=== PATIENT | male | born 1935 | race Caucasian/White ===

== ENCOUNTER → 2019-09-09 07:53 | Outpatient (CLI) | payer MEDICARE, SELFPAY ==
--- NOTE | ~2019-09-09 | US_ITS ---
EXAMINATION: US aorta DATE: 09/09/2019 08:10 INDICATION: Abdominal aortic aneurysm without rupture TECHNIQUE: Grayscale, color Doppler, and pulsed Doppler images of the aorta and common iliac arteries were obtained. COMPARISON: 09/03/2018 FINDINGS: Maximum vascular dimensions are as follows: Proximal aorta: 2.7 cm Mid aorta: 2.5 cm Distal aorta: 3.4 cm Right common iliac artery: 2.3 cm Left common iliac artery: 1.7 cm There is a 3.7 x 3.4 cm fusiform infrarenal abdominal aortic aneurysm with minimal change since the c omparison examination. IMPRESSION: 1. Fusiform infrarenal abdominal aortic aneurysm measuring up to 3.7 cm with minimal change. Reviewed, dictated and finalized at location A. 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 Fusiform infrarenal abdominal aortic aneurysm measuring up to 3.7 cm with mi nimal change.
== END ==
PROVIDERS: Visit Provider Physician Assistant
DX: I71.4 Abdominal aortic aneurysm, without rupture (principal)
CPT/HCPCS: 76775

== ENCOUNTER 2019-09-25 09:53 | Outpatient (RCR) | payer SELFPAY ==
[2019-05-29 07:58] LABS: Glucose Point of Care 91 (65-105)
== END 2020-04-28 14:26 | disposition home or self-care (01) ==
LOC: ANHCPRIII 09:53
PROVIDERS: PCP Family Medicine; Visit Provider Specialist
DX: I48.91 Unspecified atrial fibrillation (principal); I25.10 Atherosclerotic heart disease of native coronary artery without angina pectoris; Z95.5 Presence of coronary angioplasty implant and graft
CPT/HCPCS: 99199

== ENCOUNTER 2020-01-05 11:46 | Inpatient (IN) | payer MEDICARE, SELFPAY ==
[2020-01-05] VITALS (38 sets, daily range): BP systolic 108–159; BP diastolic 51–99; PULSE 80–105; RESP 11–36; TEMP 35.8–37; O2SAT 99–100; BMI 35.4
--- NOTE | ~2020-01-05 | XR_ITS ---
EXAMINATION: XR small bowel follow through DATE: 01/06/2020 16:46 INDICATION: Anemia, occult blood in the stool TECHNIQUE: Field Administrator radiograph(s) of the abdomen was/were obtained. Oral contrast was administered, and sequential radiographs of the abdomen were obtained until oral contrast was noted to be in the proxi mal colon. Spot fluoroscopic images of the small bowel were obtained. Fluoroscopy exposure time was 1 .0 minutes. The DAP for this procedure was 81.745 Gycm2. COMPARISON: None. FINDINGS: Transit time from the stomach to proximal colon was approximately two hours. There is heavenly l caliber and mucosal fold pattern throughout the small bowel. Terminal ileum is normal. No tethering or abnormal mass effect observed upon the small bowel with real-time fluoroscopy. IMPRESSION: 1. Unremarkable small bowel follow-through. Reviewed, dictated and finalized at location F.
--- NOTE | ~2020-01-05 | XR_ITS ---
EXAMINATION: XR chest 1V portable INDICATION: Shortness of breath TECHNIQUE: Portable AP chest at 1239 hours COMPARISON: 07/29/2018 FINDINGS: There are diffuse bilateral airspace opacities. No pleural effusion or pneumothorax is iden tified. The cardiomediastinal silhouette is within normal limits for technique. IMPRESSION: 1. Diffuse bilateral airspace opacities, consistent with pneumonia, atelectasis, or pulmonary edema. Reviewed, dictated and finalized at location A. IMPRESSION: 1. Diffuse bilateral airspace opacities, consistent with pneumonia, atelectasis , or pulmonary edema.
--- NOTE | 2020-01-05 12:02 | ECG_ITS ---
Measurements Intervals [place] Rate: 97 P: [place]: 0 QRS: 68 QRSD: 177 T: 168 QT: 395 QTc: 503 Interpretive Statements ELECTRONIC VENTRICULAR PACEMAKER VENTRICULAR PREMATURE COMPLEXES AND FUSION COMPLEX BASELINE ARTIFACT- I, II, III, AVR, AVL, AVF, V1-V6 NO FURTHER INTERPRETATION IS POSSIBLE ABNORMAL ECG Electronically Signed On 01-05-2020 12:33:03 CDT by Leroy Lion D.O.
--- NOTE | 2020-01-05 12:04 | ED.RECABL ---
HPI - Recheck/Abnormal Lab/Rx General Chief Complaint: Recheck/Abnormal Lab/Rx Stated Complaint: Abnormal labs Time Seen by Provider: 01/05/20 11:54 Source: patient Mode of arrival: ambulatory Limitations: no limitations History of Present Illness HPI narrative: This patient is an 84 year old male with history of chronic anemia, Chronic kidney disease, afib on xarelto who presents to ER for evaluation of low hemoglobin. Patient is hard of hearing so his if giving history. She states patient has been having fatigue, lightheadedness, worsening edema so he was evaluated by his PCP a few days ago. He had labs drawn and they show a hemoglobin of 4.6 so he was told to come to ER. He is also scheduled to see Dr. Alvarez today for evaluatio of his symptoms. He has increased his oral lasix to twice a day. He has fatigue with walking. He denies chest pain, abdominal pain or back pain. He denies any active bleeding or signs of bleeding other than bruising to his arms. He denies melena, rectal bleeding. MD complaint: abnormal lab (out patient hemoglobin 4) Related Data Home Medications Medication Instructions Recorded Confirmed calcium carbonate 600 mg calcium 600 mg PO BID 07/03/19 01/05/20 (1,500 mg) tablet meloxicam 15 mg tablet 15 mg PO DAILY 07/03/19 01/05/20 multivitamin 1 tablet PO DAILY 07/03/19 01/05/20 rivaroxaban 20 mg tablet 20 mg PO QPM 07/03/19 01/05/20 cholecalciferol (vitamin D3) 25 1,000 unit PO DAILY 08/12/19 01/05/20 mcg (1,000 unit) capsule atorvastatin 20 mg PO HS 01/05/20 01/05/20 olopatadine 1 drp OPHTHALMIC (EYE) QAM 01/05/20 01/05/20 tamsulosin 0.4 mg PO HS 01/05/20 01/05/20 Allergies Allergy/AdvReac Type Severity Reaction Status Date / Time clopidogrel Allergy Unknown Itching Verified 01/01/20 15:25 Review of Systems Review of Systems: All systems reviewed & are unremarkable except as noted in HPI and below Constitutional: Constitutional: Denies chills, Denies fever(s) and Reports weakness Cardiovascular: Cardiovascular: Denies chest pain Respiratory: Respiratory: Reports dyspnea Gastrointestinal: Gastrointestinal: Reports abdominal pain, Denies heartburn, Denies diarrhea, Denies nausea and Denies vomiting Musculoskeletal: Musculoskeletal: Reports back pain Neurologic: Reports dizziness Hematologic/Lymphatic: Hematologic/Lymphatic: Reports easy bruising PMFSH Past Medical History Medical History (Updated 01/05/20 @ 18:54 by Arielle Campbell MD) Abdominal aortic aneurysm Cataract Generalized osteoarthritis of multiple sites Heart failure, unspecified Hemorrhoid History of basal cell cancer History of cardioversion Paroxysmal atrial fibrillation 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 Surgical History Surgical History (Updated 12/04/19 @ 15:37 by Gretchen Patten [facility]) H/O cardiac radiofrequency ablation (~2015) H/O cataract extraction (~2015) H/O hernia repair (~1976) History of cochlear implant (~2017) History of hip replacement (~2005) History of knee replacement (~2006) Hx of cholecystectomy (~2005) Stented coronary artery (~2007) Social History Social History Smoking status: Never smoker Smoking end date: 07/22/02 Alcohol intake: unknown Substance use: never Substance use type: does not use Gender identity (if verbalized by the patient): Male Sexual Orientation (if Verbalized by the Patient): Straight or Heterosexual Spiritual care concerns: No Exam Narrative: Exam Narrative: GENERAL:ill appearing, well-nourished, HEAD: Normocephalic, atraumatic EYES: PERRLA and EOMI, conjunctiva clear without discharge THROAT:Mucous membranes moist, Oropharynx normal without erythema, exudate, peritonsillar swelling or fluctuance NECK: Supple, without lymphadenopathy or mass RESPIRATORY: No respiratory distress, Airway patent,Tachypneic intermittently with movement
[2020-01-05 12:25] LABS: Basophils Percent Auto 0.3 % (0.2-1.2); Eosinophils Absolute Auto 0.2 K/mm3 (0-0.3); Eosinophils Percent Auto 2.2 % (0-4.4); Immature Granulocyte Absolute 0.04 K/mm3 (0.00-0.031); Immature Granulocyte Percent A 0.6 % (0-0.5); Lymphocytes Absolute Auto 0.66 K/mm3 (0.9-3.2); Lymphocytes Percent Auto 9.8 % (18.3-44.2); Mean Corpuscular HGB Conc 28.7 g/dl (32-36); Mean Corpuscular Hemoglobin 26.5 pg (26-34); Mean Corpuscular Volume 92.3 fl (80-100); Mean Platelet Volume 10.2 fl (7.4-10.4); Monocytes Absolute Auto 0.7 K/mm3 (0.1-0.6); Monocytes Percent Auto 10.9 % (2.6-8.5); Neutrophils Absolute Auto 5.1 K/mm3 (1.3-6.7); Neutrophils Percent Auto 76.2 % (45.5-73.1); Nucleated Red Blood Cells Absolute Auto 0.3 K/mm3 (0.0-0.012); Nucleated Red Blood Cells Perc 4.2 % (0.0-0.2); Platelet Count Result 228 k/mm3 (150-375); Red Blood Count 1.81 M/mm3 (4.6-6.20); White Blood Count 6.7 K/mm3 (4.5-10.0)
[2020-01-05 12:36] LABS: INR 3.4; Prothrombin Time 33.6 Seconds (11.1-14.7)
[2020-01-05 12:37] LABS: Alanine Aminotransferase 39 U/L (4-50); Albumin Level 3.5 g/dL (3.5-5.1); Alkaline Phosphatase 88 U/L (38-126); Aspartate Amino Transferase 44 U/L (17-59); Bilirubin,Total 0.8 mg/dL (0.2-1.3); Blood Urea Nitrogen 46 mg/dL (9-20); Calcium 8.3 mg/dL (8.4-10.2); Carbon Dioxide 19 mmol/L (22-30); Chloride 104 mmol/L (98-107); Estimated CRCL calculation 38 ml/min; Estimated Glomerular Filt Rate 39; Glucose 124 mg/dL (75-110); Magnesium 2.1 mg/dL (1.6-2.3); Partial Thromboplastin Time 52.4 SECONDS (22.3-36.8); Potassium 3.5 mmol/L (3.4-5.0); Sodium 136 mmol/L (137-145)
[2020-01-05 12:40] LABS: Hematocrit 16.7 % (42.0-52.0); Hemoglobin 4.8 g/dL (14.0-18.0)
[2020-01-05 12:41] LABS: Anisocytosis 1+ (NORMAL); Hypochromasia 1+ (NORMAL); Platelet Estimate Adequate (Adequate)
[2020-01-05 12:56] LABS: Troponin I 0.067 ng/mL (0.000-0.034)
[2020-01-05 13:33] LABS: Iron 25 ug/dL (49-181)
[2020-01-05 13:40] LABS: NT Pro B Type Natriuretic Pept 2740 PG/ML (5-100)
[2020-01-05 13:41] LABS: Percent Iron Saturation 6 % (20-50)
[2020-01-05] MEDS: FUROSEMIDE INJ 40 MG/4 ML VIAL IV PUSH ×2 (14:21→22:27)
[2020-01-05] MEDS: SODIUM CHLORIDE 0.9% IV 250 ML 30 ML IV CONT (14:21)
[2020-01-05 14:50] LABS: Folic Acid > 20.0 ng/mL (2.76->20)
--- NOTE | 2020-01-05 16:02 | ADMGEN ---
This patient, Rob Britt, was admitted to IMU Room 212-01. Patient/family oriented to hospital policies and general routines including ID bracelet, bed and alarms, visiting hours, pain management, procedures, bathroom and other care routines, personal items, smoking policy, room service/diet, and visiting hours. Valuables list has been completed. Information on how to activate the Rapid Response Team has been discussed. Patient/Family are encouraged to report perceived risks to care and to ask questions if they do not understand what they are told or what they should do.
[2020-01-05] MEDS: PEG (High)/E-LYTE SOLN 4,000 ML BTL 4000 ML PO (17:57)
[2020-01-05] MEDS: SODIUM CHLORIDE 0.9% IV 250 ML 50 ML (17:57)
--- NOTE | 2020-01-05 19:00 | PM.IMHP ---
H&P: HPI History of Present Illness Chief complaint: Low hemoglobin. Narrative: Rob Britt is an 84-year-old male with multiple medical problems to include coronary artery disease with history of stents, atrial fibrillation on long-term anticoagulation, type 2 diabetes mellitus, anemia of chronic disease, chronic kidney disease, and several other comorbidities who presented to the emergency department earlier this morning from home with reports of low hemoglobin on blood drawn yesterday as an outpatient. About a month ago he noticed dark stools, was concerned that perhaps there was blood in them and thus he was evaluated his primary care provider on 12/04/2019. On rectal exam, he reportedly had internal hemorrhoids for which she was given Anusol suppositories and he was told to hold his iron supplements for months to see if the dark stools cleared up. Reportedly, he has not noticed a significant blood in his stool since that time. Over the past 3 weeks he reports increasing dyspnea on lesser and lesser exertion, orthopnea, and worsening of his chronic lower extremity edema. He was seen again by his primary care provider on 01/01/2020 and at that time he was noted to have a new murmur and he was referred for an echocardiogram. Labs were drawn at that time, and I believe they just came back today with a hemoglobin and hematocrit of 4.6 and 15.6 respectively. At the time my evaluation, he has just finished his 2nd unit of blood is feeling somewhat better. He denies chest pain, pleuritic pain, abdominal and epigastric pain, and significant GERD symptoms. No nausea, vomiting, or sweats. He denies cough, sinus congestion, rhinorrhea, otalgia, and odynophagia. Review of Systems Review of Systems: Narrative: All systems were reviewed and are unremarkable except as noted in the HPI. [facility] Past Medical History Medical History (Updated 01/05/20 @ 21:24 by Alona Smith PA-C) Abdominal aortic aneurysm Benign prostatic hyperplasia Chronic anemia Chronic kidney disease, stage 3 Baseline creatinine between 1.4 and 1.70. Coronary artery disease With history of stents in 2007. Negative Lexiscan stress in 06/2016. Essential hypertension Gastroesophageal reflux disease Hearing loss History of basal cell cancer Excised from right ear, chin, and left ear. Hyperlipidemia Osteoarthritis Paroxysmal atrial fibrillation With history of cardioversion and cardiac ablation. On long-term anticoagulation. Seronegative arthropathy of multiple sites Spinal stenosis Subdural hematoma With evacuation after a fall years ago. Type 2 diabetes mellitus Vitamin D deficiency Surgical History Surgical History (Updated 01/05/20 @ 21:10 by Alona Smith PA-C) History of arthroplasty of left knee (~2013) History of arthroplasty of right knee (~2006) History of cardiac radiofrequency ablation (~2015) History of cataract extraction (~2014) History of cholecystectomy (~2005) History of cochlear implant (~2017) History of hemorrhoidectomy (~1981) History of inguinal hernia repair (~1976) History of repair of anterior cruciate ligament of right knee (~1957) History of total left hip arthroplasty (~2005) Status post evacuation of subdural hematoma (~2008) Stented coronary artery (~2007) Family History Family History Father Family history of heart disease in male family member before age 55 Hypertension, Onset Age: 65 Family history of elevated blood lipids Family history of coronary artery disease, Onset Age: 65 Mother Family history of heart disease in male family member before age 55 Hypertension, Onset Age: 97 Family history of coronary artery disease, Onset Age: 97 Sibling Hypertension Patient's brother is in good health Family history of coronary artery disease Social History Social History (Updated 01/05/20 @ 21:11 by Alona Smith PA-C) Socia
[2020-01-05] MEDS: PANTOPRAZOLE SODIUM IV 40 MG VIAL IV PUSH (21:11)
[2020-01-05] MEDS: ramipriL 5 MG CAPSULE 10 MG PO (21:12)
[2020-01-05] MEDS: ATORVASTATIN 20 MG TABLET PO (21:12)
[2020-01-05] MEDS: CALCIUM CARBONATE (OSCAL) 500 MG TABLET 600 MG PO (21:13)
[2020-01-05] MEDS: TAMSULOSIN HCL 0.4 MG CAPSULE PO (21:13)
[2020-01-05 21:29] LABS: Glucose Point of Care 81 (65-105)
[2020-01-05 21:47] LABS: Hemoglobin 6.1 g/dL (14.0-18.0)
[2020-01-05 21:48] LABS: Hematocrit 19.3 % (42.0-52.0)
[2020-01-05] MEDS: TUBING, BLOOD PLUM PUMP TUBING 1 EACH XX (23:18)
[2020-01-05] MEDS: SODIUM CHLORIDE 0.9% IV 250 ML 30 ML (23:18)
--- NOTE | 2020-01-05 23:51 | PCRCNOTE ---
PT was placed on sleep study and taken off due to pt getting blood and colonoscopy preparation.
[2020-01-06] VITALS (23 sets, daily range): BP systolic 117–157; BP diastolic 59–83; PULSE 77–99; RESP 17–23; TEMP 35.7–36.7; O2SAT 96–100
[2020-01-06 03:36] LABS: Basophils Percent Auto 0.3 % (0.2-1.2); Eosinophils Absolute Auto 0.2 K/mm3 (0-0.3); Eosinophils Percent Auto 2.2 % (0-4.4); Hematocrit 22.1 % (42.0-52.0); Hemoglobin 7.1 g/dL (14.0-18.0); Immature Granulocyte Absolute 0.02 K/mm3 (0.00-0.031); Immature Granulocyte Percent A 0.3 % (0-0.5); Lymphocytes Absolute Auto 0.64 K/mm3 (0.9-3.2); Lymphocytes Percent Auto 9.2 % (18.3-44.2); Mean Corpuscular HGB Conc 32.1 g/dl (32-36); Mean Corpuscular Hemoglobin 28.6 pg (26-34); Mean Corpuscular Volume 89.1 fl (80-100); Mean Platelet Volume 9.4 fl (7.4-10.4); Monocytes Absolute Auto 0.7 K/mm3 (0.1-0.6); Monocytes Percent Auto 9.8 % (2.6-8.5); Neutrophils Absolute Auto 5.5 K/mm3 (1.3-6.7); Neutrophils Percent Auto 78.2 % (45.5-73.1); Nucleated Red Blood Cells Absolute Auto 0.2 K/mm3 (0.0-0.012); Nucleated Red Blood Cells Perc 2.2 % (0.0-0.2); Platelet Count Result 162 k/mm3 (150-375); Red Blood Count 2.48 M/mm3 (4.6-6.20); Red Cell Distribution Width 15.4 % (11.5-14.5)
[2020-01-06 03:55] LABS: Alanine Aminotransferase 40 U/L (4-50); Albumin Level 3.3 g/dL (3.5-5.1); Alkaline Phosphatase 94 U/L (38-126); Aspartate Amino Transferase 44 U/L (17-59); Bilirubin,Total 1.2 mg/dL (0.2-1.3); Blood Urea Nitrogen 36 mg/dL (9-20); Carbon Dioxide 27 mmol/L (22-30); Chloride 100 mmol/L (98-107); Estimated CRCL calculation 43 ml/min; Estimated Glomerular Filt Rate 45; Glucose 97 mg/dL (75-110); Potassium 3.2 mmol/L (3.4-5.0); Sodium 132 mmol/L (137-145)
[2020-01-06 05:55] LABS: Glucose Point of Care 86 (65-105)
[2020-01-06 08:14] LABS: Glucose Point of Care 88 (65-105)
[2020-01-06 08:52] LABS: Hematocrit 23.1 % (42.0-52.0); Hemoglobin 7.4 g/dL (14.0-18.0)
--- NOTE | 2020-01-06 09:58 | WPDGICN ---
Assessment and Plan Assessment and plan (1) Stool guaiac positive: Code(s): R19.5 - Other fecal abnormalities Status: Acute Assessment and Plan: Because of occult blood in stool along with profound drop in hemoglobin GI endoscopy will be performed. Patient is on Xarelto anticoagulation which undoubtedly contributes to anemia. Endoscopy is required to determine safety of continued anticoagulation. Plan to transfuse to a stable hemoglobin. Empirically pace patient on Protonix for now. Further and recommendations after endoscopy. (2) Acute on chronic anemia: Code(s): D64.9 - Anemia, unspecified Status: Acute (3) Chronic kidney disease, stage 3: Code(s): N18.3 - Chronic kidney disease, stage 3 (moderate) Status: Acute (4) Paroxysmal atrial fibrillation: Code(s): I48.0 - Paroxysmal atrial fibrillation Status: Acute (5) Pacemaker: Code(s): Z95.0 - Presence of cardiac pacemaker Status: Acute (6) Anticoagulation adequate: Code(s): Z79.01 - group home (current) use of anticoagulants Status: Acute GI Consult Note Consult date/time: 01/06/20 09:58 HPI: Rob Britt is a 84 year old male Seen in evaluation at the request of the emergency room. Patient has a history of progressive weakness. Over the last several months abuse become progressively short of breath. He reports dyspnea on exertion. He presented to primary care office yesterday and blood work was obtained. He was found to have a low hemoglobin in the emergency room hemoglobin noted to be 4.8. Patient does have a prior history of chronic underlying anemia. In the emergency room Hemoccult-positive stools were identified. Patient denies any obvious signs of GI bleeding. He denies any bruises. Denies is nose bleeds or blood in his urine. Past medical history is significant for atrial fibrillation for which he is on Xarelto anticoagulation. He has been treated for diabetes mellitus. He has a distant history of atherosclerotic heart disease and heart stenting. He is somewhat hard of hearing with a cochlear implant. Review of Systems Review of Systems: All systems reviewed & are unremarkable except as noted in HPI and below PMFSH Past Medical History Medical History Abdominal aortic aneurysm Benign prostatic hyperplasia Chronic anemia Chronic kidney disease, stage 3 Baseline creatinine between 1.4 and 1.70. Coronary artery disease With history of stents in 2007. Negative Lexiscan stress in 06/2016. Essential hypertension Gastroesophageal reflux disease Hearing loss History of basal cell cancer Excised from right ear, chin, and left ear. Hyperlipidemia Osteoarthritis Paroxysmal atrial fibrillation With history of cardioversion and cardiac ablation. On long-term anticoagulation. Seronegative arthropathy of multiple sites Spinal stenosis Subdural hematoma With evacuation after a fall years ago. Type 2 diabetes mellitus Vitamin D deficiency Surgical History Surgical History History of arthroplasty of left knee (~2013) History of arthroplasty of right knee (~2006) History of cardiac radiofrequency ablation (~2015) History of cataract extraction (~2014) History of cholecystectomy (~2005) History of cochlear implant (~2017) History of hemorrhoidectomy (~1981) History of inguinal hernia repair (~1976) History of repair of anterior cruciate ligament of right knee (~1957) History of total left hip arthroplasty (~2005) Status post evacuation of subdural hematoma (~2008) Stented coronary artery (~2007) Family History Family History Father Family history of heart disease in male family member before age 55 Hypertension, Onset Age: 65 Family history of elevated blood lipids Family history of coronary olivia
[2020-01-06] MEDS: LACTATED RINGERS 1,000 ML 150 ML IV CONT (10:53)
[2020-01-06 11:05] LABS: Glucose Point of Care 104 (65-105)
--- NOTE | 2020-01-06 11:14 | WPDANESEPPF ---
Anes - Initial Pre Proc Eval Procedure: Operation Date: 01/06/20 10:00 Proposed Procedures p Esophagogastroduodenoscopy & Colonoscopy - Alfonso Jenkins MD Date/Time: 01/06/20 11:14 Surgeon: Rob Rogers MD Pre Op Diagnosis: Low hemoglobin. Patient Data Age: 84 Gender: M Height: 5 ft 10 in Weight: 112 kg Last Vital Signs Temp 36.3 C L 01/06/20 10:58 Pulse 83 01/06/20 10:58 Resp 20 01/06/20 10:58 BP 142/73 H 01/06/20 10:58 Pulse Ox 98 01/06/20 10:58 Allergies Allergy/AdvReac Type Severity Reaction Status Date / Time clopidogrel Allergy Unknown Itching Verified 01/01/20 15:25 Home Medications Medication Instructions Recorded Confirmed Type calcium carbonate 600 mg calcium 600 mg PO BID 07/03/19 01/05/20 History (1,500 mg) tablet meloxicam 15 mg tablet 15 mg PO DAILY 07/03/19 01/05/20 History multivitamin 1 tablet PO DAILY 07/03/19 01/05/20 History rivaroxaban 20 mg tablet 20 mg PO QPM 07/03/19 01/05/20 History cholecalciferol (vitamin D3) 25 1,000 unit PO DAILY 08/12/19 01/05/20 History mcg (1,000 unit) capsule pen needle, diabetic 32 gauge x #100 each 08/18/19 01/05/20 Rx 1/5 esomeprazole magnesium 40 mg 40 mg PO DAILY #90 cap 09/02/19 01/05/20 Rx capsule,delayed release ramipril 10 mg capsule 10 mg PO BID #180 cap 09/30/19 01/05/20 Rx hydroxychloroquine 200 mg tablet 400 mg PO DAILY #180 tablet 10/05/19 01/05/20 Rx liraglutide 0.6 mg/0.1 mL (18 mg/3 1.2 mg SUB-Q DAILY #9 ml 10/16/19 01/05/20 Rx mL) subcutaneous pen injector furosemide 40 mg tablet 40 mg PO BID #180 tablet 11/04/19 01/05/20 Rx finasteride 5 mg tablet 5 mg PO DAILY #90 tablet 12/09/19 01/05/20 Rx albuterol sulfate 90 mcg/actuation See Rx Instructions .ROUTE 12/24/19 01/05/20 Rx aerosol inhaler .COMPLEX PRN #8.5 gm blood sugar diagnostic #100 each 01/04/20 01/05/20 Rx atorvastatin 20 mg PO HS 01/05/20 01/05/20 History olopatadine 1 drp OPHTHALMIC (EYE) QAM 01/05/20 01/05/20 History tamsulosin 0.4 mg PO HS 01/05/20 01/05/20 History Laboratory Tests 01/05/20 01/05/20 01/05/20 12:10 12:10 12:10 WBC 6.7 K/mm3 K/mm3 (4.5-10.0) RBC 1.81 M/mm3 L M/mm3 (4.6-6.20) Hgb 4.8 g/dL L* g/dL (14.0-18.0) Hct 16.7 % L* % (42.0-52.0) MCV 92.3 fl fl (80-100) MCH 26.5 pg pg (26-34) MCHC 28.7 g/dl L g/dl (32-36) RDW 17.0 % H % (11.5-14.5) Plt Count 228 k/mm3 k/mm3 (150-375) MPV 10.2 fl fl (7.4-10.4) Immature Gran % (Auto) 0.6 % H % (0-0.5) Neut % (Auto) 76.2 % H % (45.5-73.1) Lymph % (Auto) 9.8 % L % (18.3-44.2) [place] % (Auto) 10.9 % H % (2.6-8.5) Eos % (Auto) 2.2 % % (0-4.4) Baso % (Auto) 0.3 % % (0.2-1.2) Lymph # (Auto) 0.66 K/mm3 L K/mm3 (0.9-3.2) [place] # (Auto) 0.7 K/mm3 H K/mm3 (0.1-0.6) Eos # (Auto) 0.2 K/mm3 K/mm3 (0-0.3) Baso # (Auto) 0.0 K/mm3 K/mm3 (0.0-0.1) Abs Immat Gran (auto) 0.04 K/mm3 H K/mm3 (0.00-0.031) Absolute Neuts (auto) 5.1 K/mm3 K/mm3 (1.3-6.7) Absolute Nucleated RBC 0.3 K/mm3 H K/mm3 (0.0-0.012) Nucleated RBC % 4.2 % H % (0.0-0.2) Platelet Estimate Adequate (Adequate) Hypochromasia 1+ (NORMAL) Anisocytosis 1+ (NORMAL) PT 33.6 Seconds H Seconds (11.1-14.7) INR 3.4 APTT 52.4 SECONDS H SECONDS (22.3-36.8) Sodium 136 mmol/L L mmol/L (137-145) Potassium 3.5 mmol/L mmol/L (3.4-5.0) Chloride 104 mmol/L mmol/L (98-107) Carbon Dioxide 19 mmol/L L mmol/L (22-30) BUN 46 mg/dL H mg/dL (9-20) Creatinine 1.70 mg/dL H mg/dL (0.7-1.3) Estim Creat Clear Calc 38 ml/min ml/min Estimated GFR 39 L (59 - ) Glucose 124 mg/dL H mg/dL (75-110) POC Capil
[2020-01-06] MEDS: BENZOCAINE (*SP) 60 ML SPRAY CAN (HURRICAINE) 1 SPRAY MUCOUS MEM (11:37)
[2020-01-06 16:55] LABS: Glucose Point of Care 115 (65-105)
[2020-01-06] MEDS: CALCIUM CARBONATE (OSCAL) 500 MG TABLET 600 MG PO ×2 (17:35→18:51)
[2020-01-06] MEDS: ramipriL 5 MG CAPSULE 10 MG PO ×2 (17:36→21:57)
[2020-01-06] MEDS: OLOPATADINE 0.1% OPHTH SOLN 5 ML BTL 1 DROP EACH EYE (17:36)
[2020-01-06] MEDS: FUROSEMIDE 40 MG TABLET PO ×2 (17:37→18:51)
[2020-01-06] MEDS: FINASTERIDE 5 MG TABLET PO (17:38)
[2020-01-06] MEDS: CHOLECALCIFEROL 1,000 UNIT TABLET 1000 UNITS PO (17:38)
--- NOTE | 2020-01-06 18:09 | PM.IMPN ---
Progress Note: A&P Assessment and Plan (1) Acute on chronic anemia: Code(s): D64.9 - Anemia, unspecified Status: Acute Assessment and Plan: Presumably due to GI blood loss with reports of dark stools last month. He will be transfused with close monitoring of his volume status. Upper and lower endoscopy scheduled for tomorrow per Dr. Jenkins. Radha Xarelto and meloxicam. 01/06/20 18:09 Patient 84-year-old male is very hard of hearing and his hearing aid is not working, patient had been having fatigue tired and black stool was seen by his primary care doctor rectal exam showed internal hemorrhoid patient was given Anusol, to further evaluate patient had lab work done however patient's symptoms were progressive getting worse, lab work showed the patient has hemoglobin of 4.6 patient was given 2 units of pack RBC in the ER, patient was seen by GI and had endoscopy did not show significant pathology for GI bleed patient also had colonoscopy there was no significant finding for GI bleed to further evaluate patient is having a small-bowel follow-through and it is pending, currently patient denies any chest pain shortness of breath palpitation fever or chills, his main concern is his hungry at the right now. There was a concerned the patient may have CHF is seen on chest x-ray patient recorded echo was in 2018 daytime patient ejection fraction was 54%, today patient BNP was 2740, patient received 2 does IV furosemide 40 mg and now patient is on furosemide 40 mg b.i.d. is clinically stable to further evaluate will do the cardiac echo and further recommendation to follow. (2) Elevated troponin: Code(s): R79.89 - Other specified abnormal findings of blood chemistry Status: Acute Assessment and Plan: He is having no chest pain whatsoever likely this is due to his profound anemia and high output leading to congestive heart failure. Echocardiogram in a.m. (3) Congestive heart failure: Code(s): I50.9 - Heart failure, unspecified Status: Acute Assessment and Plan: I am unable to find any echocardiogram reports that at this facility, thus will order echo in a.m. I suspect he is in failure due to his profound anemia. He will be diuresed with close monitoring of his volume status. I would like to do an apnea link tonight as well. (4) Gastroesophageal reflux disease: Code(s): K21.9 - Gastro-esophageal reflux disease without esophagitis Status: Acute Assessment and Plan: Will start Protonix IV b.i.d. (5) Essential hypertension: Code(s): I10 - Essential (primary) hypertension Status: Acute Assessment and Plan: Blood pressures were reviewed and they are stable. Continue antihypertensives and monitor daily. (6) Paroxysmal atrial fibrillation: Code(s): I48.0 - Paroxysmal atrial fibrillation Status: Acute Assessment and Plan: Xarelto on hold given profound anemia. (7) Type 2 diabetes mellitus: Code(s): E11.9 - Type 2 diabetes mellitus without complications Status: Acute Assessment and Plan: He is on Victoza, which is non formulary at this facility. Check hemoglobin A1c. Initiate sliding scale insulin, Accu-Cheks, and hypoglycemic protocol. (8) Benign prostatic hyperplasia: Code(s): N40.0 - Benign prostatic hyperplasia without lower urinary tract symptoms Status: Acute Assessment and Plan: Continue finasteride and tamsulosin. (9) Seronegative arthropathy of multiple sites:
[2020-01-06 20:32] LABS: Glucose Point of Care 135 (65-105)
[2020-01-06] MEDS: TAMSULOSIN HCL 0.4 MG CAPSULE PO (21:57)
[2020-01-06] MEDS: ATORVASTATIN 20 MG TABLET PO (22:00)
[2020-01-07] VITALS (9 sets, daily range): BP systolic 127–142; BP diastolic 65–74; PULSE 82–86; RESP 18–22; TEMP 36.1–36.6; O2SAT 96–100
[2020-01-07 06:37] LABS: Blood Urea Nitrogen 30 mg/dL (9-20); Calcium 8.2 mg/dL (8.4-10.2); Carbon Dioxide 30 mmol/L (22-30); Chloride 100 mmol/L (98-107); Estimated CRCL calculation 49 ml/min; Estimated Glomerular Filt Rate 53; Glucose 99 mg/dL (75-110); Potassium 3.3 mmol/L (3.4-5.0); Sodium 134 mmol/L (137-145)
[2020-01-07 06:42] LABS: Mean Corpuscular HGB Conc 31.8 g/dl (32-36); Mean Corpuscular Hemoglobin 28.6 pg (26-34); Mean Corpuscular Volume 89.8 fl (80-100); Mean Platelet Volume 10.2 fl (7.4-10.4); Platelet Count Result 155 k/mm3 (150-375); Red Blood Count 2.45 M/mm3 (4.6-6.20); Red Cell Distribution Width 15.5 % (11.5-14.5); White Blood Count 7.3 K/mm3 (4.5-10.0)
[2020-01-07 07:41] LABS: Glucose Point of Care 91 (65-105)
--- NOTE | 2020-01-07 09:35 | PM.CNCAR ---
Assessment and Plan Assessment and plan (1) Congestive heart failure: Code(s): I50.9 - Heart failure, unspecified Status: Acute Assessment and Plan: Patient clinically fairly well compensated at this time. At presentation, I agree mild pulmonary edema chest x-ray with minimally elevated BNP noted. Continue home oral Lasix 40 mg twice daily. Replete potassium to around 4.0. No doubt, etiology of patient's complaints predominantly related to profound anemia with a hemoglobin of 4.6. Post transfusion patient's symptoms improved greatly. Continue current medical therapy. No need to obtain echocardiogram at this juncture as it is not likely to change our management. Will have patient follow-up with Dr. Alvarez as an outpatient to consider echocardiogram in our office at that time. Furthermore, patient does not wish to obtain echocardiogram at this time in the hospital so this has been canceled. Patient reports his weight has been decreasing up until his admission and his edema is at baseline and chronic. At this time, no further cardiac workup for recommendations. Disposition per hospitalist service and GI recommendations. Will see patient on as needed basis. Please do not hesitate to contact us with any additional questions or concerns. (2) Acute on chronic anemia: Code(s): D64.9 - Anemia, unspecified Status: Acute Assessment and Plan: Secondary to GI blood loss. Avoid NSAID therapy on anticoagulation therapy. Remains significantly anemic with hemoglobin 7.0. Recommend transfusion if drops below 7. Defer further management in this regard to GI and primary service. (3) Paroxysmal atrial fibrillation: Code(s): I48.0 - Paroxysmal atrial fibrillation Status: Acute Assessment and Plan: Patient is pacemaker dependent status post AV dian ablation. He is ventricular paced on telemetry. Resume systemic anticoagulation when okay with GI and primary service. Patient at elevated risk for stroke off anticoagulation given profound anemia, GI bleed this has been held out of necessity. (4) Pacemaker: Code(s): Z95.0 - Presence of cardiac pacemaker Status: Acute Assessment and Plan: As above. No acute issues. (5) Elevated troponin: Code(s): R79.89 - Other specified abnormal findings of blood chemistry Status: Acute Assessment and Plan: Non [place] troponin elevation. Secondary to profound anemia, chronic kidney disease at presentation. Not secondary to acute coronary syndrome although only 1 troponin sampled at presentation. Patient does not endorse ischemic symptoms at this time. Continue aggressive medical management for history of CAD. (6) Essential hypertension: Code(s): I10 - Essential (primary) hypertension Status: Acute Assessment and Plan: But fair control overall. Continue medical therapy. (7) Coronary artery disease: Code(s): I25.10 - Atherosclerotic heart disease of [place] coronary artery without angina pectoris Status: Acute Assessment and Plan: Stable, no acute issues at this time. Continue aggressive medical therapy. Patient had not been on antiplatelet therapy due to systemic anticoagulation. History of Present Illness History of Present Illness Consult date/time: Date of service: 01/07/20 09:35 This is a cardiology consultation at the request of Dr. Denise for our opinion regarding SOB and CHF Requesting physician: Rogelio Denise MD Consult reason: congestive heart failure Reason For Visit: Low hemoglobin. Narrative: Patient is a very pleasant 84-year-old gentleman with a history of coronary artery disease, history of atrial fibrillation and atrial flutter status post ablation x2, status post AV dian ablation and dual-chamber pacemaker, chronic lower extremity edema and heart failure with preserved ejection fraction followed by Dr. Alvarez as an outpatient, diabetes mellitus, c
--- NOTE | 2020-01-07 09:38 | WPDANESPN ---
Anes - Prog Note Post-Op Date/Time: 01/07/20 09:38 Cardiovascular status: normal Respiratory status: normal Airway patency: baseline Mental status: baseline Post-Op hydration status: normal Vital Signs: Last Vital Signs Temp 36.6 C 01/07/20 08:24 Pulse 83 01/07/20 08:24 Resp 18 01/07/20 08:24 BP 142/74 H 01/07/20 08:24 Pulse Ox 97 01/07/20 08:24 I/O: Intake & Output 01/06/20 01/07/20 01/07/20 23:59 07:59 15:59 Intake Total 960 500 Output Total 600 1250 Balance 360 -750 Laboratory Tests 01/07/20 06:21 01/07/20 06:21 01/06/20 01/06/20 01/06/20 11:03 16:50 20:27 WBC RBC Hgb Hct MCV MCH MCHC RDW Plt Count MPV Sodium Potassium Chloride Carbon Dioxide BUN Creatinine Estim Creat Clear Calc Estimated GFR Glucose POC Capillary Glucose 104 115 H 135 H Calcium 01/07/20 01/07/20 01/07/20 06:21 06:21 07:35 WBC 7.3 RBC 2.45 L Hgb 7.0 L Hct 22.0 L MCV 89.8 MCH 28.6 MCHC 31.8 L RDW 15.5 H Plt Count 155 MPV 10.2 Sodium 134 L Potassium 3.3 L Chloride 100 Carbon Dioxide 30 BUN 30 H Creatinine 1.30 Estim Creat Clear Calc 49 Estimated GFR 53 L Glucose 99 POC Capillary Glucose 91 Calcium 8.2 L Post-procedural complaints: none Patient Feedback: Patient satisfied with anesthetic care.
[2020-01-07] MEDS: CHOLECALCIFEROL 1,000 UNIT TABLET 1000 UNITS PO (09:44)
[2020-01-07] MEDS: FINASTERIDE 5 MG TABLET PO (09:45)
[2020-01-07] MEDS: CALCIUM CARBONATE (OSCAL) 500 MG TABLET 600 MG PO (09:45)
[2020-01-07] MEDS: ramipriL 5 MG CAPSULE 10 MG PO (09:45)
[2020-01-07] MEDS: FUROSEMIDE 40 MG TABLET PO (09:45)
[2020-01-07] MEDS: OLOPATADINE 0.1% OPHTH SOLN 5 ML BTL 1 DROP EACH EYE (09:46)
--- NOTE | 2020-01-07 11:02 | WPDGIPROGNO ---
Progress Note: A&P Additional Plan Patient alert and comfortable this morning. No additional GI bleeding described. He denies abdominal pain. Stools are normal in color. Physical exam reveals patient to be alert. Comfortable at rest he is anicteric. He remains very hard of hearing. With cochlear implants. Lungs are clear. Heart without murmur. Abdomen bowel sounds are present soft nontender with no organomegaly. Labs reveal hemoglobin 7.0, hematocrit 22, MCV 89. Small-bowel follow-through unremarkable. Impression profound anemia. No significant etiology from GI workup identified. Consider non GI contributing causes. 2. Occult blood in stool. Internal hemorrhoids identified which could account for this. EGD small-bowel follow-through wire unremarkable. Only a few diverticular lesions and hemorrhoids on colonoscopy. 3. Cochlear implant with difficulty hearing. 4. Atrial fibrillation. Patient has been on Xarelto anticoagulation. At the present time see no contraindication. However Xarelto anticoagulation likely contributed to significant blood loss. Would continue monitor hemoglobin closely after restarting. Five. Congestive heart failure. Currently stable clinically. 6. Diabetes. 7. Hypertension. Subjective Date/time seen: 01/07/20 11:02 Objective Data Vital Signs Vital Signs: Vital Signs - 24 hr 01/06/20 12:00 01/06/20 12:01 01/06/20 12:11 Temperature Pulse Rate 81 81 83 Respiratory Rate 21 H 17 Blood Pressure 117/73 129/81 Pulse Oximetry 100 100 01/06/20 12:21 01/06/20 14:00 01/06/20 16:00 Temperature Pulse Rate 78 80 80 Respiratory Rate 23 H Blood Pressure 127/83 Pulse Oximetry 100 01/06/20 16:57 01/06/20 18:00 01/06/20 19:20 Temperature 36.4 C L 36.4 C L Pulse Rate 78 80 81 Respiratory Rate 20 20 Blood Pressure 152/76 H 119/59 L Pulse Oximetry 100 100 01/06/20 20:00 01/06/20 22:00 01/06/20 23:39 Temperature 36.6 C Pulse Rate 78 97 77 Respiratory Rate 20 Blood Pressure 122/77 Pulse Oximetry 98 01/07/20 00:00 01/07/20 02:00 01/07/20 04:00 Temperature 36.1 C L Pulse Rate 83 83 82 Respiratory Rate 22 H Blood Pressure 134/68 Pulse Oximetry 98 96 01/07/20 06:00 01/07/20 08:00 01/07/20 08:24 Temperature 36.6 C Pulse Rate 83 83 83 Respiratory Rate 18 18 Blood Pressure 142/74 H Pulse Oximetry 97 97 Intake/Output Intake/Output: Intake & Output 01/04/20 01/05/20 01/06/20 01/07/20 23:59 23:59 23:59 23:59 Intake Total 992 1360 980 Output Total 1100 3200 1250 Balance -816 -4860 -270 Meds/Results Medications: Active Medications Generic Name Dose Route Start Last Admin Trade Name Freq PRN Reason Stop Dose Admin Albuterol 0 puff 01/05/20 17:43 Proventil Hfa INHALATION Q4-6H PRN shortness of breath or wheezing Atorvastatin Calcium 20 mg 01/05/20 21:00 01/06/20 22:00 Lipitor PO 20 mg HS JAVAN Administration Calcium Carbonate 600 mg 01/05/20 17:00 01/07/20 09:45 Oscal 500 Mg PO 02/05/20 17:01 500 mg BID JAVAN Administration Dextrose 12.5 gm 01/05/20 21:23 Dextrose 50% Syringe IV PUSH PRN PRN Hypoglycemia Protocol Finasteride 5 mg 01/06/20 09:00 01/07/20 09:45 Proscar PO 5 mg DAILY JAVAN Administration Furosemide 40 mg 01/05/20 17:00 01/07/20 09:45 Lasix Tablet PO 40 mg BID JAVAN Administration Glucagon 1 mg 01/05/20 21:23 Glucagon For Inj IM PRN PRN Hypoglycemia Protocol Glucose 15 gm 01/05/20 21:23 Glutose 15 PO PRN PRN Hypoglycemia Protocol Dextrose 1,000 mls @ 100 mls/hr 01/05/20 21:23 Dextrose 5% 1,000 Ml IVPB PRN PRN Hypoglycemia Protocol Insulin Aspart 3 - 6 units 01/06/20 08:00 01/07/20 09:37 Novolog SUB-Q Not Given TIDWM JAVAN Protocol Non-Formulary Medication 1.2 mg 01/05/20 09:00 01/05/20 19:06 Liraglutide [Victoza 3-Yeison] SUB-Q 0
[2020-01-07 13:10] LABS: Glucose Point of Care 112 (65-105)
--- NOTE | 2020-01-07 14:17 | P.DS_ITS ---
DS: Admitting Diagnosis Admitting Diagnosis Admitting Diagnosis: Anemia, unspecified DS: Discharge Diagnosis Discharge Diagnosis (1) Acute on chronic anemia: Code(s): D64.9 - Anemia, unspecified Status: Acute Assessment and Plan: * Presumably due to GI blood loss with reports of dark stools last month. * He will be transfused with close monitoring of his volume status. * Upper and lower endoscopy scheduled for tomorrow per Dr. Jenkins. * Hold Xarelto and meloxicam. 01/06/20 18:09 Patient 84-year-old male is very hard of hearing and his hearing aid is not working, patient had been having fatigue tired and black stool was seen by his primary care doctor rectal exam showed internal hemorrhoid patient was given Anusol, to further evaluate patient had lab work done however patient's symptoms were progressive getting worse, lab work showed the patient has hemoglobin of 4.6 patient was given 2 units of pack RBC in the ER, patient was seen by GI and had endoscopy did not show significant pathology for GI bleed patient also had colonoscopy there was no significant finding for GI bleed to further evaluate patient is having a small-bowel follow-through and it is pending, currently patient denies any chest pain shortness of breath palpitation fever or chills, his main concern is his hungry at the right now. There was a concerned the patient may have CHF is seen on chest x-ray patient recorded echo was in 2018 daytime patient ejection fraction was 54%, today patient BNP was 2740, patient received 2 does IV furosemide 40 mg and now patient is on furosemide 40 mg b.i.d. is clinically stable to further evaluate will do the cardiac echo and further recommendation to follow. (2) Elevated troponin: Code(s): R79.89 - Other specified abnormal findings of blood chemistry Status: Acute Assessment and Plan: * He is having no chest pain whatsoever likely this is due to his profound anemia and high output leading to congestive heart failure. * Echocardiogram in a.m. (3) Congestive heart failure: Code(s): I50.9 - Heart failure, unspecified Status: Acute Assessment and Plan: * I am unable to find any echocardiogram reports that at this facility, thus will order echo in a.m. * I suspect he is in failure due to his profound anemia. * He will be diuresed with close monitoring of his volume status. * I would like to do an apnea link tonight as well. (4) Gastroesophageal reflux disease: Code(s): K21.9 - Gastro-esophageal reflux disease without esophagitis Status: Acute Assessment and Plan: * Will start Protonix IV b.i.d. (5) Essential hypertension: Code(s): I10 - Essential (primary) hypertension Status: Acute Assessment and Plan: * Blood pressures were reviewed and they are stable. * Continue antihypertensives and monitor daily. (6) Paroxysmal atrial fibrillation: Code(s): I48.0 - Paroxysmal atrial fibrillation Status: Acute Assessment and Plan: * Xarelto on hold given profound anemia. (7) Type 2 diabetes mellitus: Code(s): E11.9 - Type 2 diabetes mellitus without complications Status: Acute Assessment and Plan: * He is on Victoza, which is non formulary at this facil
--- NOTE | 2020-01-08 06:09 | WPDCDIQUERY2 ---
CDI Query Clarification Request - CHF on problem list and I suspect he is in failure due to his profound anemia.He will be diuresed with close monitoring of his volume status. documented. - Cardiology notes I agree mild pumonary edema CXR with min. elevated BNP noted. and heart failure with preserved ejection fraction.' documented. - Pt received Lasix 40mg IV twice then home dose continued. Please clarify acuity of CHF with preserved ejection fraction (acute, chronic, acute on chronic, unable to determine). <Roseann Dowling RN - Last Filed: 01/08/20 06:16> Clarified Diagnosis (1) Congestive heart failure: Code(s): I50.9 - Heart failure, unspecified <Roseann Dowling RN - Last Filed: 01/08/20 06:16> Status: Acute <Roseann Dowling RN - Last Filed: 01/08/20 06:16> Assessment and Plan: most likely acute on chronic mild systolic dysfucntion <Rogelio Denise MD - Last Filed: 01/26/20 18:23>
== END 2020-01-07 15:00 | disposition home or self-care (01) | DRG 393 ==
LOC: ANHED 13:55 → ANHIMU 17:45
PROVIDERS: Internal Medicine Gastroenterology; Physician Assistant; Admitting Provider Internal Medicine; Emergency Provider General Practice; PCP Family Medicine; Visit Provider Family Medicine
PROC: 0DJ08ZZ Inspection of Upper Intestinal Tract, Via Natural or Artificial Opening Endoscopic (ICD-10-PCS; CPT 43235; principal; 2020-01-06 10:00)
DX: K64.8 Other hemorrhoids (principal); I50.23 Acute on chronic systolic (congestive) heart failure; D62 Acute posthemorrhagic anemia; I13.0 Hypertensive heart and chronic kidney disease with heart failure and stage 1 through stage 4 chronic kidney disease, or unspecified chronic kidney disease; E11.22 Type 2 diabetes mellitus with diabetic chronic kidney disease; N18.3 Chronic kidney disease, stage 3 (moderate); D63.8 Anemia in other chronic diseases classified elsewhere; R19.5 Other fecal abnormalities; K57.30 Diverticulosis of large intestine without perforation or abscess without bleeding; R79.89 Other specified abnormal findings of blood chemistry; I25.10 Atherosclerotic heart disease of native coronary artery without angina pectoris; I48.0 Paroxysmal atrial fibrillation; N40.0 Benign prostatic hyperplasia without lower urinary tract symptoms; K21.9 Gastro-esophageal reflux disease without esophagitis; E78.5 Hyperlipidemia, unspecified; M13.89 Other specified arthritis, multiple sites; Z96.21 Cochlear implant status; Z79.01 Long term (current) use of anticoagulants; Z79.4 Long term (current) use of insulin; Z87.891 Personal history of nicotine dependence; Z95.0 Presence of cardiac pacemaker; Z95.5 Presence of coronary angioplasty implant and graft
CPT/HCPCS: 36415; 36430; 71045; 74250; 80048; 80053; 82607; 82746; 83540; 83550; 83735; 83880; 84484; 85014; 85018; 85025; 85027; 85610; 85730; 86850; 86900; 86901; 86920; 93005; 94762; 96374; 99285; A9270; C9113; J1940; J2704; J7050; J7120; P9016

== ENCOUNTER 2020-01-11 13:14 | Outpatient (CLI) | payer MEDICARE, SELFPAY ==
[2020-01-11 13:32] LABS: Hematocrit 23.7 % (42.0-52.0); Hemoglobin 7.3 g/dL (14.0-18.0); Mean Corpuscular HGB Conc 30.8 g/dl (32-36); Mean Corpuscular Hemoglobin 28.2 pg (26-34); Mean Corpuscular Volume 91.5 fl (80-100); Mean Platelet Volume 9.7 fl (7.4-10.4); Platelet Count Result 169 k/mm3 (150-375); Red Blood Count 2.59 M/mm3 (4.6-6.20); Red Cell Distribution Width 16.3 % (11.5-14.5); White Blood Count 7.3 K/mm3 (4.5-10.0)
== END 2020-01-11 13:15 | disposition home or self-care (01) ==
PROVIDERS: PCP Family Medicine; Visit Provider Family Medicine
DX: D64.9 Anemia, unspecified (principal); K21.9 Gastro-esophageal reflux disease without esophagitis
CPT/HCPCS: 36415; 85027

== ENCOUNTER 2020-01-14 10:31 | Emergency (ER) | payer MEDICARE, SELFPAY ==
--- NOTE | ~2020-01-14 | XR_ITS ---
EXAMINATION: XR chest 2V EXAM DATE: 01/14/2020 11:30 INDICATION: Shortness of breath. TECHNIQUE: Frontal and lateral projections of the chest obtained and reviewed. Comparison is made to prior examination from 01/05/2020. FINDINGS: Resolution of previously seen moderate amount of ill-defined perihilar airspace disease. T here is persistent severely elevated left hemidiaphragm with adjacent atelectasis, could indicate par alysis. Cardiac monitoring device. Cardiac silhouette is stable in size compared to prior exam. There is no pneumothorax suspected. Mild thoracic spondylosis. IMPRESSION: 1. Chronic left hemidiaphragm elevation, adjacent atelectasis. 2. Resolution of previously seen acute airspace disease. Reviewed, dictated and finalized at location B.
[2020-01-14 10:41] VITALS: BP 126/66; PULSE 82; PULSE 85; RESP 18; RESP 21; TEMP 36.7; O2SAT 100
[2020-01-14 10:42] VITALS: BP 133/63; PULSE 93; RESP 22; O2SAT 100
--- NOTE | 2020-01-14 10:48 | ED.WOUNDLAC ---
HPI - Wound/Laceration General Chief Complaint: Wound/Laceration Stated Complaint: Possible cellulitis Time Seen by Provider: 01/14/20 10:40 History of Present Illness HPI narrative: Increasing swelling to the bilateral lower extremities resulting in weeping wounds to the ankles. He was previously seen by his PCP for these and refered to wound care. He is on lasix 40 mg BID. He does have a h/o renal insufficiency. No fever. Related Data Home Medications Medication Instructions Recorded Confirmed calcium carbonate 600 mg calcium 600 mg PO BID 07/03/19 01/12/20 (1,500 mg) tablet multivitamin 1 tablet PO DAILY 07/03/19 01/12/20 rivaroxaban 20 mg tablet 20 mg PO QPM 07/03/19 01/12/20 cholecalciferol (vitamin D3) 25 1,000 unit PO DAILY 08/12/19 01/12/20 mcg (1,000 unit) capsule atorvastatin 20 mg PO HS 01/05/20 01/12/20 olopatadine 1 drp OPHTHALMIC (EYE) QA 01/05/20 01/12/20 tamsulosin 0.4 mg PO HS 01/05/20 01/12/20 Allergies Allergy/AdvReac Type Severity Reaction Status Date / Time clopidogrel Allergy Unknown Itching Verified 01/12/20 10:01 Review of Systems Review of Systems: All systems reviewed & are unremarkable except as noted in HPI and below Constitutional: Constitutional: Denies chills and Denies fever(s) Cardiovascular: Cardiovascular: Denies chest pain Respiratory: Respiratory: Denies dyspnea Neurologic: Denies dizziness and Denies weakness [facility] Past Medical History Medical History Abdominal aortic aneurysm Benign prostatic hyperplasia Chronic anemia Chronic kidney disease, stage 3 Baseline creatinine between 1.4 and 1.70. Coronary artery disease With history of stents in 2007. Negative Lexiscan stress in 06/2016. Essential hypertension Gastroesophageal reflux disease Hearing loss History of basal cell cancer Excised from right ear, chin, and left ear. Hyperlipidemia Osteoarthritis Paroxysmal atrial fibrillation With history of cardioversion and cardiac ablation. On long-term anticoagulation. Seronegative arthropathy of multiple sites Spinal stenosis Subdural hematoma With evacuation after a fall years ago. Type 2 diabetes mellitus Vitamin D deficiency Surgical History Surgical History History of arthroplasty of left knee (~2013) History of arthroplasty of right knee (~2006) History of cardiac radiofrequency ablation (~2015) History of cataract extraction (~2014) History of cholecystectomy (~2005) History of cochlear implant (~2017) History of hemorrhoidectomy (~1981) History of inguinal hernia repair (~1976) History of repair of anterior cruciate ligament of right knee (~1957) History of total left hip arthroplasty (~2005) Status post evacuation of subdural hematoma (~2008) Stented coronary artery (~2007) Family History Family History Father Family history of heart disease in male family member before age 55 Hypertension, Onset Age: 65 Family history of elevated blood lipids Family history of coronary artery disease, Onset Age: 65 Mother Family history of heart disease in male family member before age 55 Hypertension, Onset Age: 97 Family history of coronary artery disease, Onset Age: 97 Sibling Hypertension Patient's brother is in good health Family history of coronary artery disease Social History Social History Social History: The patient is and lives with his in [place]. 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 He smoked cigars daily until 1984. He drinks alcohol socially and in moderation. No illicit substance use. He designates his , Matt, is his healthcare power of insurance attorney. He is listed as a full code. Smoking end date: 07/22/02 Gender identity (if verbalized by the patient): June
[2020-01-14 11:15] LABS: Basophils Percent Auto 0.5 % (0.2-1.2); Eosinophils Absolute Auto 0.2 K/mm3 (0-0.3); Eosinophils Percent Auto 2.9 % (0-4.4); Hematocrit 23.3 % (42.0-52.0); Hemoglobin 7.1 g/dL (14.0-18.0); Immature Granulocyte Absolute 0.02 K/mm3 (0.00-0.031); Immature Granulocyte Percent A 0.3 % (0-0.5); Lymphocytes Absolute Auto 0.36 K/mm3 (0.9-3.2); Mean Corpuscular HGB Conc 30.5 g/dl (32-36); Mean Corpuscular Hemoglobin 27.8 pg (26-34); Mean Corpuscular Volume 91.4 fl (80-100); Mean Platelet Volume 9.4 fl (7.4-10.4); Monocytes Absolute Auto 0.6 K/mm3 (0.1-0.6); Monocytes Percent Auto 10.6 % (2.6-8.5); Neutrophils Absolute Auto 4.8 K/mm3 (1.3-6.7); Neutrophils Percent Auto 79.7 % (45.5-73.1); Nucleated Red Blood Cells Perc 0.3 % (0.0-0.2); Platelet Count Result 191 k/mm3 (150-375); Red Blood Count 2.55 M/mm3 (4.6-6.20); Red Cell Distribution Width 16.4 % (11.5-14.5)
[2020-01-14 11:26] LABS: INR 2.4; Prothrombin Time 25.4 Seconds (11.1-14.7)
[2020-01-14 11:27] LABS: Blood Urea Nitrogen 21 mg/dL (9-20); Calcium 8.2 mg/dL (8.4-10.2); Carbon Dioxide 29 mmol/L (22-30); Chloride 98 mmol/L (98-107); Estimated CRCL calculation 53 ml/min; Estimated Glomerular Filt Rate 58; Glucose 127 mg/dL (75-110); Partial Thromboplastin Time 51.2 SECONDS (22.3-36.8); Potassium 3.5 mmol/L (3.4-5.0); Sodium 133 mmol/L (137-145)
[2020-01-14 11:42] LABS: NT Pro B Type Natriuretic Pept 2410 PG/ML (5-100); Troponin I 0.058 ng/mL (0.000-0.034)
[2020-01-14 13:39] VITALS: BP 170/97; PULSE 80; RESP 17; O2SAT 99
== END 2020-01-14 14:20 | disposition home or self-care (01) ==
PROVIDERS: Emergency Provider Emergency Medicine; PCP Family Medicine
DX: R60.0 Localized edema (principal); L98.8 Other specified disorders of the skin and subcutaneous tissue; N40.0 Benign prostatic hyperplasia without lower urinary tract symptoms; E11.22 Type 2 diabetes mellitus with diabetic chronic kidney disease; I12.9 Hypertensive chronic kidney disease with stage 1 through stage 4 chronic kidney disease, or unspecified chronic kidney disease; N18.3 Chronic kidney disease, stage 3 (moderate); D63.1 Anemia in chronic kidney disease; Z87.891 Personal history of nicotine dependence; I25.10 Atherosclerotic heart disease of native coronary artery without angina pectoris; Z95.5 Presence of coronary angioplasty implant and graft; K21.9 Gastro-esophageal reflux disease without esophagitis; Z85.828 Personal history of other malignant neoplasm of skin; E78.5 Hyperlipidemia, unspecified; M19.90 Unspecified osteoarthritis, unspecified site; I48.0 Paroxysmal atrial fibrillation; Z79.01 Long term (current) use of anticoagulants; E55.9 Vitamin D deficiency, unspecified; Z96.653 Presence of artificial knee joint, bilateral; Z98.49 Cataract extraction status, unspecified eye; Z96.642 Presence of left artificial hip joint
CPT/HCPCS: 36415; 71046; 80048; 83880; 84484; 85025; 85610; 85730; 86850; 86900; 86901; 99284

== ENCOUNTER 2020-03-17 20:27 | Emergency (ER) | payer MEDICARE, SELFPAY ==
[2020-03-17 20:29] VITALS: BP 130/97; PULSE 88; RESP 16; TEMP 36.5; O2SAT 100
--- NOTE | 2020-03-17 20:57 | ED.GENADULT ---
HPI - General Adult General Chief complaint: Wound/Laceration Stated complaint: leg lac Time Seen by Provider: 03/17/20 20:35 Source: patient Mode of arrival: ambulatory Limitations: no limitations History of Present Illness HPI narrative: Patient is an 84-year-old male who presents to emergency department for evaluation of laceration to the right lower extremity that occurred just prior to arrival patient caught his leg on a exercise bike paddle lacerating it just above the ankle patient has tetanus up-to-date last of which was 2019 patient on arrival to emergency department is resting comfortably in the room in no distress Related Data Home Medications Medication Instructions Recorded Confirmed calcium carbonate 600 mg calcium 600 mg PO BID 07/03/19 03/15/20 (1,500 mg) tablet multivitamin 1 tablet PO DAILY 07/03/19 03/15/20 rivaroxaban 20 mg tablet 20 mg PO QPM 07/03/19 03/15/20 cholecalciferol (vitamin D3) 25 1,000 unit PO DAILY 08/12/19 03/15/20 mcg (1,000 unit) capsule olopatadine 1 drp OPHTHALMIC (EYE) QAM 01/05/20 03/15/20 tamsulosin 0.4 mg PO HS 01/05/20 03/15/20 Xarelto 20 mg BYMOUTH ONCE 03/04/20 03/15/20 Allergies Allergy/AdvReac Type Severity Reaction Status Date / Time clopidogrel Allergy Unknown Itching Verified 03/15/20 09:39 Review of Systems Review of Systems: All systems reviewed & are unremarkable except as noted in HPI and below PMFSH Past Medical History Medical History Abdominal aortic aneurysm Benign prostatic hyperplasia Chronic anemia Chronic kidney disease, stage 3 Baseline creatinine between 1.4 and 1.70. Coronary artery disease With history of stents in 2007. Negative Lexiscan stress in 06/2016. Essential hypertension Gastroesophageal reflux disease Hearing loss History of basal cell cancer Excised from right ear, chin, and left ear. Hyperlipidemia Osteoarthritis Paroxysmal atrial fibrillation With history of cardioversion and cardiac ablation. On long-term anticoagulation. Seronegative arthropathy of multiple sites Spinal stenosis Subdural hematoma With evacuation after a fall years ago. Type 2 diabetes mellitus Vitamin D deficiency Family History Family History Father Family history of heart disease in male family member before age 55 Hypertension, Onset Age: 65 Family history of elevated blood lipids Family history of coronary artery disease, Onset Age: 65 Mother Family history of heart disease in male family member before age 55 Hypertension, Onset Age: 97 Family history of coronary artery disease, Onset Age: 97 Sibling Hypertension Patient's brother is in good health Family history of coronary artery disease Social History Social History Social History: The patient is and lives with his in [place]. 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 He smoked cigars daily until 1984. He drinks alcohol socially and in moderation. No illicit substance use. He designates his , Matt, is his healthcare power of energy attorney. He is listed as a full code. Smoking status: Former smoker Tobacco type: cigarettes Second hand tobacco smoke exposure: No Smoking end date: 07/22/02 Gender identity (if verbalized by the patient): Male Spiritual care concerns: No Exam Narrative: Exam Narrative: GENERAL: Well-appearing, well-nourished, and in no acute distress. HEAD: Normocephalic, atraumatic. EYES: PERRLA and EOMI. CHEST: Clear to auscultation. No respiratory distress. No wheezes rales or rhonchi HEART: Regular rate and rhythm. No murmur heard. EXTREMITIES: Normal range of motion. 4+ edema of the lower extremities SKIN: Warm, dry, no rash. 2 cm linear superficial laceration of the right lower leg just above the ankle NEURO: No focal deficits
[2020-03-17 21:17] VITALS: BP 127/68; PULSE 85; RESP 16; TEMP 36.6; O2SAT 99
== END 2020-03-17 21:18 | disposition home or self-care (01) ==
PROVIDERS: Emergency Provider Emergency Medicine; PCP Family Medicine
DX: S81.811A Laceration without foreign body, right lower leg, initial encounter (principal); N40.0 Benign prostatic hyperplasia without lower urinary tract symptoms; I25.10 Atherosclerotic heart disease of native coronary artery without angina pectoris; E78.5 Hyperlipidemia, unspecified; M19.90 Unspecified osteoarthritis, unspecified site; I48.0 Paroxysmal atrial fibrillation; E11.22 Type 2 diabetes mellitus with diabetic chronic kidney disease; I12.9 Hypertensive chronic kidney disease with stage 1 through stage 4 chronic kidney disease, or unspecified chronic kidney disease; N18.3 Chronic kidney disease, stage 3 (moderate); K21.9 Gastro-esophageal reflux disease without esophagitis; E55.9 Vitamin D deficiency, unspecified; Z85.828 Personal history of other malignant neoplasm of skin; Z87.891 Personal history of nicotine dependence; Z79.01 Long term (current) use of anticoagulants; W22.8XXA Striking against or struck by other objects, initial encounter; Y93.A1 Activity, exercise machines primarily for cardiorespiratory conditioning
CPT/HCPCS: 12001; 99283

== ENCOUNTER 2020-03-25 07:39 | Outpatient (RCR) | payer MEDICARE, SELFPAY ==
[2020-01-19 09:00] VITALS: BMI 35.9
== END 2020-04-18 23:59 | disposition home or self-care (01) ==
LOC: ANHWOC 07:39
PROVIDERS: PCP Family Medicine; Visit Provider Family Medicine
DX: L98.9 Disorder of the skin and subcutaneous tissue, unspecified (principal); R60.9 Edema, unspecified
CPT/HCPCS: 99212; G0463

== ENCOUNTER 2020-03-28 01:07 | Outpatient (CLI) | payer MEDICARE, SELFPAY ==
[2020-03-28 16:32] LABS: SARS-CoV-2 RNA PCR Negative
== END 2020-03-28 01:08 | disposition home or self-care (01) ==
LOC: ANHCOVIDDT 01:07
PROVIDERS: PCP Family Medicine; Visit Provider Specialist
DX: Z01.812 Encounter for preprocedural laboratory examination (principal); Z20.828 Contact with and (suspected) exposure to other viral communicable diseases
CPT/HCPCS: 87635; C9803; U0003

== ENCOUNTER 2020-03-30 00:30 | Day surgery (SDC) | payer MEDICARE, SELFPAY ==
[2020-03-29 14:57] VITALS: BMI 36.8
[2020-03-30] VITALS (8 sets, daily range): BP systolic 123–147; BP diastolic 71–87; PULSE 80–83; RESP 14–21; TEMP 36.4; O2SAT 90–99
--- NOTE | 2020-03-30 | ECHO_ITS ---
Patient Info Name: Rob Britt Age: 84 years : 1935 Gender: Male Ht: 69 in Wt: 250 lbs BSA: 2.40 m2 HR: 80 bpm BP: 137 / 80 mmHg Heart Rhythm: Sinus Rhythm Technical Quality: Good Exam Date: 03/30/2020 8:37 AM Exam Location: [facility] Pulmonary Patient Status: Outpatient Admit Date: 03/30/2020 Staff Ordering Physician: Juice Alvarez MD [employer] Athlete: Sergo Jimenez RDCS Attending Provider: Juice Alvarez MD Referring Physician: Kim TALBOT; Exam Type: CA echo transesophageal Study Info Indications I35.0 - Nonrheumatic aortic (valve) stenosis Complete two-dimensional, color flow and Doppler transesophageal study is performed. History/Risk Factors Aortic stenosis. Summary 1. Left ventricular chamber dimension is normal. 2. Normal left ventricular systolic function. 3. Left atrial chamber dimension is moderately enlarged. 4. There is mild mitral valve regurgitation. 5. Aortic valve is stenotic with limited leaflet separation valve area 0.9 by direct planimetry. Left Ventricle Left ventricular chamber dimension is normal. Normal left ventricular systolic function. Right Ventricle Right ventricular chamber dimension is normal. Left Atria Left atrial chamber dimension is moderately enlarged. Right Atria Right atrial chamber dimension is normal. Aortic Valve The aortic valve is trileaflet. There is moderate aortic valve sclerosis. Aortic valve is stenotic with limited leaflet separation valve area 0.9 by direct planimetry. Pulmonic Valve The pulmonic valve is not well visualized. Mitral Valve The mitral valve has normal leaflets. There is mild mitral valve regurgitation. Tricuspid Valve The tricuspid valve leaflets are normal. Pericardium/Pleural The pericardium appears normal. Inferior Vena Cava Not well visualized inferior vena cava with Empty collapse upon inspiration consistent with Empty right atrial pressure, Empty. Aorta The aortic root size at the sinus of Valsalva is normal. Tricuspid Valve Name Value Normal TV Regurgitation Doppler TR Peak Velocity 297 cm/s TR Peak Gradient 35 mmHg Aortic Valve Name Value Normal AV 2D/MM AV Area (Planimetry) 0.9 cm2 Report Signatures
--- NOTE | 2020-03-30 08:57 | WPDCARDPROC ---
Cardiac Cath Procedure Note Date of procedure:: 03/30/20 Performing physician:: Juice Alvarez MD Indication:: A aortic valve stenosis, history of coronary artery disease Brief clinical history:: 84-year-old patient with a history of coronary disease and previous PCI. He was recently in the hospital short of breath and was profoundly anemic. Echocardiogram was done and was of suboptimal quality suggesting significant aortic valve stenosis. Patient is being admitted as an outpatient today for PALMA to perform direct planimetry and visualization of the aortic valve Procedure Procedure performed:: transesophageal echocardiogram Sedation/Medication given:: fentanyl 50 mg Versed 2 mg sedation provided by Telly Wood RN, trained observer Estimated blood loss:: no blood loss Procedure note:: patient was placed in the chemistry laboratory technician holding area in the postabsorptive state with IV access in the right antecubital vein. Or pharyngeal benzocaine was used to provide topical anesthesia and then he was sedated with intravenous fentanyl and Versed as detailed above the medication provided very good procedural sedation. PALMA probe was then easily placed into the oropharynx and into the esophagus. Esophageal echo evaluation was carried out as detailed below. Following this the probe was removed and patient is recovering nicely without any apparent complication. Findings:: The left atrium is moderately dilated the atrium was inspected and there was no evidence of atrial clot. The mitral valve leaflets are anatomically unremarkable there is [id number] mitral valve regurgitation with a centrally directed jet. The left ventricle is normal in dimension contractility appears to be adequate LV cavity was suboptimally visualized but contractility is at least 50% ejection fraction by visual estimation. The aortic valve is a trileaflet structure which is nicely visualized both in the long axis as well as in the short axis view the short axis view direct planimetry yields a measured aortic valve area of 0.9 cm2. In the long axis view 1 can visualize a trivial jet of aortic regurgitation. Aortic root dimension appears to be normal the aortic arch in descending thoracic aorta appear to be unremarkable. The right atrium and ventricle are unremarkable in appearance tricuspid and pulmonic valves appear to be normal there is moderate tricuspid valve insufficiency identified. The interatrial septum is intact there is no evidence of atrial septal defect or PFO. There is no pericardial fluid. Conclusion:: Transesophageal echocardiogram done to offer direct visualization and plan of tree of the aortic valve yield an aortic valve area of 0.9 cm2 with senile calcific stenosis of this trileaflet valve. Aortic valve regurgitation is trivial. Juice Alvarez MD FACC
--- NOTE | 2020-03-30 09:01 | P.SEDATION_ITS ---
Moderate Sedation Note-Pt Data Patient Data Diagnosis: coronary artery disease /aortic stenosis recent diagnosis of symptomatic anemia Present Complaint: exertional dyspnea Procedure to be performed/Plan: transesophageal echocardiogram Allergies Allergy/AdvReac Type Severity Reaction Status Date / Time clopidogrel Allergy Unknown Itching Verified 03/15/20 09:39 Home Medications Medication Instructions Recorded Confirmed Type calcium carbonate 600 mg calcium 600 mg PO BID 07/03/19 03/29/20 History (1,500 mg) tablet multivitamin 1 tablet PO DAILY 07/03/19 03/29/20 History rivaroxaban 20 mg tablet 20 mg PO QPM 07/03/19 03/29/20 History cholecalciferol (vitamin D3) 25 1,000 unit PO DAILY 08/12/19 03/29/20 History mcg (1,000 unit) capsule esomeprazole magnesium 40 mg 40 mg PO DAILY #90 cap 09/02/19 03/29/20 Rx capsule,delayed release ramipril 10 mg capsule 10 mg PO BID #180 cap 09/30/19 03/29/20 Rx finasteride 5 mg tablet 5 mg PO DAILY #90 tablet 12/09/19 03/29/20 Rx tamsulosin 0.4 mg PO HS 01/05/20 03/29/20 History hydroxychloroquine 200 mg tablet 400 mg PO DAILY #180 tablet 01/08/20 03/29/20 Rx atorvastatin 20 mg tablet 20 mg PO HS #90 tablet 02/19/20 03/29/20 Rx cyclosporine [Restasis] 2 drp OPHTHALMIC (EYE) Q12H 03/29/20 03/29/20 History ferrous sulfate [Slow Fe] 142 mg PO 3XW 03/29/20 03/29/20 History furosemide 80 mg PO BID 03/29/20 03/29/20 History Sedation/Anesthesia: No previous sedation/anesthesia problems (including family history). [facility] Social History Social History Social History: The patient is and lives with his in [place]. 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 He smoked cigars daily until 1984. He drinks alcohol socially and in moderation. No illicit substance use. He designates his , Matt, is his healthcare power of civil litigation attorney. He is listed as a full code. Smoking status: Former smoker Tobacco type: cigars Second hand tobacco smoke exposure: No Smoking end date: 03/29/20 Alcohol intake: never Substance use: never Living arrangements: with family Gender identity (if verbalized by the patient): Male Spiritual care concerns: No Mod Sed Physical Exam Physical Exam Pre Procedural Exam: Normal: Nose, Neck, Throat, Airway, Lungs, Heart Size, Heart Rate ( paced rhythm), Heart Rhythm, Neuro Exam ( arousable but rather sleepy) and Extremities and Variation: Appearance ( overweight elderly man sleeping comfortably in bed no distress) Hours since solid foods: 12 Hours since liquid intake: 12 Internal Medicine - PN: Obj Da Vital Signs Vital Signs: Vital Signs - 24 hr 03/30/20 07:42 03/30/20 08:45 03/30/20 08:50 Temperature 36.4 C L Pulse Rate 83 80 80 Respiratory Rate 21 H 19 16 Blood Pressure 131/75 145/84 H 147/87 H Pulse Oximetry 99 99 99 03/30/20 09:00 Temperature Pulse Rate 82 Respiratory Rate 14 Blood Pressure 123/72 Pulse Oximetry 90 ASA Classification/Sedation ASA Classification/Sedation ASA Class: II Emergent: No Risks: Risks, benefits and alternatives explained and patient/family accepted plan for sedation. Patient re-evaluated immediately prior to sedation.
== END 2020-03-30 10:40 | disposition home or self-care (01) ==
PROVIDERS: PCP Family Medicine; Visit Provider Specialist
PROC: (CPT 93312; principal; 2020-03-30 08:30)
DX: I34.0 Nonrheumatic mitral (valve) insufficiency (principal); I36.1 Nonrheumatic tricuspid (valve) insufficiency; R93.1 Abnormal findings on diagnostic imaging of heart and coronary circulation; I25.10 Atherosclerotic heart disease of native coronary artery without angina pectoris; I44.2 Atrioventricular block, complete; I48.19 Other persistent atrial fibrillation; I48.4 Atypical atrial flutter; Z95.5 Presence of coronary angioplasty implant and graft; Z95.0 Presence of cardiac pacemaker; Z79.01 Long term (current) use of anticoagulants
CPT/HCPCS: 93312; 93320; 93325; J2250; J3010

== ENCOUNTER → 2020-04-04 10:24 | Outpatient (CLI) | payer MEDICARE, SELFPAY ==
--- NOTE | ~2020-04-04 | US_ITS ---
US scrotum doppler INDICATION: Scrotal edema TECHNIQUE: Testicular sonogram utilizing grayscale and color Doppler FINDINGS: The testes are normal in size and appearance. No focal lesions are seen. The right testes measures 2.9 x 2.1 x 2.6 cm centimeters, and the left testis measures 2.8 x 2.5 x 2.3 cm cm. There is normal vascular flow to both testes. There is diffuse bilateral scrotal wall edema. There is a 5 mm right epididymal cysts. There are small hydroceles. IMPRESSION: 1. Diffuse bilateral scrotal wall edema. 2: Small hydroceles. Reviewed, dictated and finalized at location B.
== END ==
PROVIDERS: Visit Provider Nurse Practitioner Adult Health
DX: N50.89 Other specified disorders of the male genital organs (principal); N43.3 Hydrocele, unspecified
CPT/HCPCS: 76870; 93976

== ENCOUNTER 2020-05-06 02:05 | Outpatient (CLI) | payer MEDICARE, SELFPAY ==
[2020-05-06 18:25] LABS: SARS-CoV-2 RNA PCR Negative
== END 2020-05-06 02:06 | disposition home or self-care (01) ==
LOC: ANHCOVIDDT 02:05
PROVIDERS: PCP Family Medicine; Visit Provider Specialist
DX: Z01.812 Encounter for preprocedural laboratory examination (principal); Z20.828 Contact with and (suspected) exposure to other viral communicable diseases
CPT/HCPCS: 87635; C9803; U0003

== ENCOUNTER 2020-05-06 12:01 | Emergency (ER) | payer MEDICARE, SELFPAY ==
[2020-05-06 12:11] VITALS: BP 130/84; PULSE 73; RESP 18; TEMP 36.6; O2SAT 100
--- NOTE | 2020-05-06 12:33 | PC.NURSE ---
room set up for staple placement. lidocaine in room.
--- NOTE | 2020-05-06 12:58 | ED.WOUNDLAC ---
HPI - Wound/Laceration General Chief Complaint: Wound/Laceration Stated Complaint: R LEG LACERATION Time Seen by Provider: 05/06/20 12:03 History of Present Illness HPI narrative: Patient is an 84-year-old male who presents ER with a laceration to his right lower extremity. He had been in his couch and was napping when he started to slide out of a chair and he struck his leg on his bicycle pedals but he exercises with. This caused a laceration with significant bleeding due to the fact he is on Xarelto. He did not strike his head. No numbness or tingling. No other issues. Related Data Home Medications Medication Instructions Recorded Confirmed calcium carbonate 600 mg calcium 600 mg PO BID 07/03/19 05/04/20 (1,500 mg) tablet multivitamin 1 tablet PO DAILY 07/03/19 05/04/20 rivaroxaban 20 mg tablet 20 mg PO QPM 07/03/19 05/04/20 cholecalciferol (vitamin D3) 25 1,000 unit PO DAILY 08/12/19 05/04/20 mcg (1,000 unit) capsule tamsulosin 0.4 mg PO HS 01/05/20 05/04/20 Restasis 2 drp OPHTHALMIC (EYE) Q12H 03/29/20 05/04/20 Slow Fe 142 mg PO 3XW 03/29/20 05/04/20 furosemide 80 mg PO BID 03/29/20 05/04/20 hydroxychloroquine [Plaquenil] mg PO DAILY 05/06/20 Allergies Allergy/AdvReac Type Severity Reaction Status Date / Time clopidogrel Allergy Unknown Itching Verified 05/06/20 12:24 Review of Systems Constitutional: Constitutional: Denies fatigue, Denies fever(s) and Denies frequent falls Integumentary/Breasts: Comments: Right lower extremity laceration. Neurologic: Denies syncope, Denies headache(s), Denies numbness and Denies tingling PMFSH Past Medical History Medical History (Updated 05/06/20 @ 13:08 by Ector Coulter MD) Abdominal aortic aneurysm Benign prostatic hyperplasia Chronic anemia Chronic kidney disease, stage 3 Baseline creatinine between 1.4 and 1.70. Coronary artery disease With history of stents in 2007. Negative Lexiscan stress in 06/2016. Essential hypertension Gastroesophageal reflux disease Hearing loss History of basal cell cancer Excised from right ear, chin, and left ear. Hyperlipidemia Osteoarthritis Paroxysmal atrial fibrillation With history of cardioversion and cardiac ablation. On long-term anticoagulation. Seronegative arthropathy of multiple sites Spinal stenosis Subdural hematoma With evacuation after a fall years ago. Type 2 diabetes mellitus Vitamin D deficiency Surgical History Surgical History History of arthroplasty of left knee (~2013) History of arthroplasty of right knee (~2006) History of cardiac radiofrequency ablation (~2015) History of cataract extraction (~2014) History of cholecystectomy (~2005) History of cochlear implant (~2017) History of hemorrhoidectomy (~1981) History of inguinal hernia repair (~1976) History of repair of anterior cruciate ligament of right knee (~1957) History of total left hip arthroplasty (~2005) Status post evacuation of subdural hematoma (~2008) Stented coronary artery (~2007) Family History Family History Father Family history of heart disease in male family member before age 55 Hypertension, Onset Age: 65 Family history of elevated blood lipids Family history of coronary artery disease, Onset Age: 65 Mother Family history of heart disease in male family member before age 55 Hypertension, Onset Age: 97 Family history of coronary artery disease, Onset Age: 97 Sibling Hypertension Patient's brother is in good health Family history of coronary artery disease Social History Social History Social History: The patient is and lives with his in [place]. 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 He smoked cigars daily until 1984. He drinks alcohol socially and in moderation. No illicit substance use. He designates
[2020-05-06 13:53] VITALS: BP 124/72; PULSE 71; RESP 18; O2SAT 98
== END 2020-05-06 13:54 | disposition home or self-care (01) ==
PROVIDERS: Emergency Provider Emergency Medicine; PCP Family Medicine
DX: S81.811A Laceration without foreign body, right lower leg, initial encounter (principal); N40.0 Benign prostatic hyperplasia without lower urinary tract symptoms; I25.10 Atherosclerotic heart disease of native coronary artery without angina pectoris; E11.22 Type 2 diabetes mellitus with diabetic chronic kidney disease; I12.9 Hypertensive chronic kidney disease with stage 1 through stage 4 chronic kidney disease, or unspecified chronic kidney disease; N18.30 Chronic kidney disease, stage 3 unspecified; I48.0 Paroxysmal atrial fibrillation; D63.1 Anemia in chronic kidney disease; K21.9 Gastro-esophageal reflux disease without esophagitis; E55.9 Vitamin D deficiency, unspecified; Z85.828 Personal history of other malignant neoplasm of skin; Z95.5 Presence of coronary angioplasty implant and graft; Z98.49 Cataract extraction status, unspecified eye; Z96.653 Presence of artificial knee joint, bilateral; Z96.642 Presence of left artificial hip joint; Z79.01 Long term (current) use of anticoagulants; Z87.891 Personal history of nicotine dependence
CPT/HCPCS: 12004; 87635; 99282; C9803; U0003

== ENCOUNTER 2020-05-09 02:47 | Day surgery (SDC) | payer MEDICARE, SELFPAY ==
[2020-05-06 14:41] VITALS: BMI 35.1
[2020-05-09] VITALS (14 sets, daily range): BP systolic 133–167; BP diastolic 69–106; PULSE 70–82; RESP 14–22; TEMP 36.2–36.6; O2SAT 90–100; BMI 35.2
[2020-05-09 07:51] LABS: Basophils Absolute Auto 0.1 K/mm3 (0.0-0.1); Basophils Percent Auto 0.9 % (0.2-1.2); Eosinophils Absolute Auto 0.2 K/mm3 (0-0.3); Eosinophils Percent Auto 2.6 % (0-4.4); Hematocrit 32.3 % (42.0-52.0); Hemoglobin 10.1 g/dL (14.0-18.0); Immature Granulocyte Absolute 0.01 K/mm3 (0.00-0.031); Immature Granulocyte Percent A 0.2 % (0-0.5); Lymphocytes Absolute Auto 0.42 K/mm3 (0.9-3.2); Lymphocytes Percent Auto 7.4 % (18.3-44.2); Mean Corpuscular HGB Conc 31.3 g/dl (32-36); Mean Corpuscular Hemoglobin 30.6 pg (26-34); Mean Corpuscular Volume 97.9 fl (80-100); Mean Platelet Volume 8.8 fl (7.4-10.4); Monocytes Absolute Auto 0.6 K/mm3 (0.1-0.6); Neutrophils Absolute Auto 4.5 K/mm3 (1.3-6.7); Neutrophils Percent Auto 77.9 % (45.5-73.1); Platelet Count Result 174 k/mm3 (150-375); Red Cell Distribution Width 19.8 % (11.5-14.5); White Blood Count 5.7 K/mm3 (4.5-10.0)
[2020-05-09 08:01] LABS: INR 1.3; Prothrombin Time 15.7 Seconds (11.1-14.7)
[2020-05-09 08:04] LABS: Anion Gap 9 mmol/L (8-16); Blood Urea Nitrogen 30 mg/dL (9-20); Calcium 8.8 mg/dL (8.4-10.2); Carbon Dioxide 30 mmol/L (22-30); Chloride 99 mmol/L (98-107); Estimated CRCL calculation 53 ml/min; Estimated Glomerular Filt Rate 58; Glucose 107 mg/dL (75-110); Potassium 3.8 mmol/L (3.4-5.0); Sodium 138 mmol/L (137-145)
--- NOTE | 2020-05-09 08:25 | WPDMODSED ---
Moderate Sedation Note-Pt Data Patient Data Diagnosis: Exertional dyspnea coronary artery disease with previous RCA stent aortic valve stenosis recent anemia, iron deficiency Present Complaint: 84-year-old man presenting with symptoms of problematic exertional dyspnea. He has a history of coronary disease with a remote history of stenting of his right coronary artery. He also has physical exam echocardiographic evidence of significant aortic valve stenosis. Allergies Allergy/AdvReac Type Severity Reaction Status Date / Time clopidogrel Allergy Unknown Itching Verified 05/06/20 12:24 Home Medications Medication Instructions Recorded Confirmed Type calcium carbonate 600 mg calcium 600 mg PO BID 07/03/19 05/06/20 History (1,500 mg) tablet multivitamin 1 tablet PO DAILY 07/03/19 05/06/20 History cholecalciferol (vitamin D3) 25 1,000 unit PO DAILY 08/12/19 05/06/20 History mcg (1,000 unit) capsule esomeprazole magnesium 40 mg 40 mg PO DAILY #90 cap 09/02/19 05/06/20 Rx capsule,delayed release finasteride 5 mg tablet 5 mg PO DAILY #90 tablet 12/09/19 05/06/20 Rx atorvastatin 20 mg tablet 20 mg PO HS #90 tablet 02/19/20 05/06/20 Rx Slow Fe 142 mg PO 3XW 03/29/20 05/06/20 History furosemide 40 mg PO BID 03/29/20 05/06/20 History hydroxychloroquine [Plaquenil] 200 mg PO BID 05/06/20 05/06/20 History ramipril 10 mg PO BID 05/06/20 05/06/20 History rivaroxaban [Xarelto] 20 mg PO DAILY 05/06/20 05/06/20 History tamsulosin 0.4 mg PO DAILY 05/06/20 05/06/20 History Current Medications: Active Medications Sodium Chloride (Normal Saline Iv) 500 mls @ 100 mls/hr IV CONT .Q5H JAVAN Sedation/Anesthesia: No previous sedation/anesthesia problems (including family history). [facility] Past Medical History Medical History (Updated 05/07/20 @ 00:00 by Background Daemon) Abdominal aortic aneurysm Benign prostatic hyperplasia Chronic anemia Chronic kidney disease, stage 3 Baseline creatinine between 1.4 and 1.70. Coronary artery disease With history of stents in 2007. Negative Lexiscan stress in 06/2016. Essential hypertension Gastroesophageal reflux disease Hearing loss History of basal cell cancer Excised from right ear, chin, and left ear. Hyperlipidemia Osteoarthritis Paroxysmal atrial fibrillation With history of cardioversion and cardiac ablation. On long-term anticoagulation. Seronegative arthropathy of multiple sites Spinal stenosis Subdural hematoma With evacuation after a fall years ago. Type 2 diabetes mellitus Vitamin D deficiency Surgical History Surgical History History of arthroplasty of left knee (~2013) History of arthroplasty of right knee (~2006) History of cardiac radiofrequency ablation (~2015) History of cataract extraction (~2014) History of cholecystectomy (~2005) History of cochlear implant (~2017) History of hemorrhoidectomy (~1981) History of inguinal hernia repair (~1976) History of repair of anterior cruciate ligament of right knee (~1957) History of total left hip arthroplasty (~2005) Status post evacuation of subdural hematoma (~2008) Stented coronary artery (~2007) Family History Family History Father Family history of heart disease in male family member before age 55 Hypertension, Onset Age: 65 Family history of elevated blood lipids Family history of coronary artery disease, Onset Age: 65 Mother Family history of heart disease in male family member before age 55 Hypertension, Onset Age: 97 Family history of coronary artery disease, Onset Age: 97 Sibling Hypertension Patient's brother is in good health Family history of coronary artery disease Social History Social History Social History: The patient is and lives with his in [place]. 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
--- NOTE | 2020-05-09 09:38 | WPDCARDPROC ---
Cardiac Cath Procedure Note Date of procedure:: 05/09/20 Performing physician:: Juice Alvarez MD Indication:: Exertional dyspnea history of coronary artery disease echocardiographic evidence of aortic stenosis Brief clinical history:: this is a 84-year-old man with a history of coronary disease remote history of RCA intervention. He is reporting symptoms of exertional dyspnea that are becoming slowly more problematic. An echocardiogram was done as an outpatient suggesting significant aortic valve stenosis. In this setting right left heart catheterization was recommended and scheduled for today. Patient also has a history of atrial fibrillation and has been systemically anticoagulated which has been held for 4 days prior to this procedure. Procedure Procedure performed:: Right and left heart catheterization Sedation/Medication given:: fentanyl 50 mg Versed 4 mg case start time 8:52 a.m. case end time 9:29 a.m. sedation provided by Carey Baker RN, trained observer Access site:: right femoral artery, right femoral vein Estimated blood loss:: 15-20 cc Procedure note:: patient was brought to the cardiac catheterization lab in the postabsorptive state where the right femoral triangle was prepared and draped in the usual fashion. Anesthesia was given with 1% lidocaine infiltrated locally. Using the modified Seldinger technique the femoral artery was punctured and a long 45 cm 6 Nepali sheath was placed. Following this the right femoral vein was punctured and a 7 Nepali standard vascular sheath was placed. Right heart catheterization was then carried out using a balloon tip [place] catheter measuring right-sided hemodynamics and measuring thermodilution cardiac outputs as well as Dean cardiac outputs. The [place] catheter was then removed. I then used a 5 Nepali angled pigtail catheter to document left-sided hemodynamics and inject in LV g in the STEEN projection. Simultaneous LV and aortic pressures were documented with simultaneous pressures measured per the long side arm of the sheath. Pullback pressures were then also demonstrated across the aortic valve. The pigtail catheter was then removed. Following this the left coronary was engaged and injected in multiple projections using standard 5 Nepali FL4 catheter. The right coronary artery was engaged and injected using a standard 5 Nepali JR4 catheter. The procedure was then terminated. An angiogram was done of the femoral artery through the sheath after which I elected to taken to the holding area for manual sheath removal. During the case the patient was complaining significantly of low back pain due to the uncomfortable Flat heart table in the equipment operator/laborer. He was given additional fentanyl but at the end of the procedure was once again rather uncomfortable. Findings:: Hemodynamics: Right atrial pressure 18 mmHg, right ventricle 64 over 20, pulmonary artery 64 over 34, pulmonary capillary wedge pressure was 40. Central aortic pressure 158/72 left ventricle 164 over 7 end-diastolic 26. Aortic valve has a mean gradient of 17.2 mmHg. Cardiac output was 4.93 liters/minute giving an index of 2.17. Aortic valve area calculates to 1.34 cm2. Left ventricle: The LV is mildly enlarged there is mild global systolic dysfunction identify the global ejection fraction visually estimated to be about 40%. The mitral valve annulus is heavily calcified. the left coronary artery including the proximal LAD is heavily calcified. The left main coronary is widely patent the LAD is a moderate caliber artery extending down to around the apex. Despite the dense proximal calcification there are no stenotic lesions in the LAD or in the diagonal branches. Circumflex is a moderate caliber artery giving rise to the marginal branches as well as a significant posterior circulation. Circumflex has no significant lesions. Right coronary artery is a moderate caliber artery was dominant to the
[2020-05-09] MEDS: fentaNYL CITRATE INJ (*CRX) 100 MCG/2 ML VIAL 50 MCG IV PUSH (10:11)
[2020-05-09] MEDS: HYDROcodone/acetaminophen (*CRX) 5-325 MG TABLET 2 TAB PO (11:27)
--- NOTE | 2020-05-09 13:32 | SUR.PHASEII ---
PALMA disc and R/L cath disc given to pts Matt per Marlys request and informed her to take them to Dr. Groves appointment at [facility].
--- NOTE | 2020-05-09 16:07 | SUR.PHASEII ---
1555 D/c instructions reviewed with patient and pts , questions answered, IV d/c'd cath intact pressure applied, R groin sites soft and nontender, no hematoma or bleeding noted, pedal pulse dopplered, pt transported via to [facility] where his drove him home in private vehicle.
== END 2020-05-09 15:55 | disposition home or self-care (01) ==
PROVIDERS: PCP Family Medicine; Visit Provider Specialist
PROC: 4A023N8 Measurement of Cardiac Sampling and Pressure, Bilateral, Percutaneous Approach (ICD-10-PCS; CPT 93453; principal; 2020-05-09 08:30)
DX: I35.0 Nonrheumatic aortic (valve) stenosis (principal); R93.1 Abnormal findings on diagnostic imaging of heart and coronary circulation; R06.09 Other forms of dyspnea; I25.10 Atherosclerotic heart disease of native coronary artery without angina pectoris; I48.0 Paroxysmal atrial fibrillation; I13.0 Hypertensive heart and chronic kidney disease with heart failure and stage 1 through stage 4 chronic kidney disease, or unspecified chronic kidney disease; I50.20 Unspecified systolic (congestive) heart failure; N18.30 Chronic kidney disease, stage 3 unspecified; K21.9 Gastro-esophageal reflux disease without esophagitis; D64.9 Anemia, unspecified; I71.4 Abdominal aortic aneurysm, without rupture; E78.5 Hyperlipidemia, unspecified; E11.22 Type 2 diabetes mellitus with diabetic chronic kidney disease; E55.9 Vitamin D deficiency, unspecified; Z95.5 Presence of coronary angioplasty implant and graft; Z79.01 Long term (current) use of anticoagulants; Z87.891 Personal history of nicotine dependence
CPT/HCPCS: 36415; 80048; 85025; 85610; 93460; A9270; C1769; C1887; C1894; J1644; J2250; J3010; J7040

== ENCOUNTER → 2020-05-19 15:14 | Outpatient (CLI) | payer MEDICARE, SELFPAY ==
--- NOTE | ~2020-05-19 | XR_ITS ---
EXAMINATION: XR chest 2V DATE: 05/19/2020 15:54 INDICATION: Cough. TECHNIQUE: Frontal and lateral views of the chest were obtained on 3 radiographs. COMPARISON: Chest 2 views 01/14/2020, chest CT 09/15/2014 FINDINGS: There is chronic marked elevation of left hemidiaphragm. There is mild atelectasis at left lung base. A calcified left lung nodule is consistent with old granulomatous disease. No pleural effu robbin or pneumothorax. The heart size is normal. There is an implanted electronic device in left anter ior chest wall. IMPRESSION: 1. Chronic marked elevation of left hemidiaphragm with mild atelectasis at left lung base. Reviewed, dictated and finalized at location A.
== END ==
PROVIDERS: PCP Family Medicine; Visit Provider Physician Assistant
DX: R05 Cough (principal); R91.8 Other nonspecific abnormal finding of lung field
CPT/HCPCS: 71046

== ENCOUNTER → 2020-06-01 09:36 | Outpatient (CLI) | payer MEDICARE, SELFPAY ==
--- NOTE | ~2020-06-01 | XR_ITS ---
EXAMINATION: XR abdomen/kub 1V EXAM DATE: 06/01/2020 10:14 INDICATION: D64.9 - Anemia, unspecified, Blood in stool . TECHNIQUE: Frontal projection(s) of the abdomen for interpretation. There are no prior studies for c omparison. FINDINGS: There is expected amount of colonic stool and gas. No small bowel dilation, nonobstructiv e bowel gas pattern. There are no suspicious calcifications identified. There is no organomegaly suspected. Advanced lumbar spondylosis. Elevated left hemidiaphragm. Bilateral hip replacements. IMPRESSION: Unremarkable bowel gas pattern. Reviewed, dictated and finalized at location A. L WAXER
== END ==
PROVIDERS: PCP Family Medicine; Visit Provider Family Medicine
DX: D64.9 Anemia, unspecified (principal); K92.1 Melena
CPT/HCPCS: 74018

== ENCOUNTER 2020-06-06 06:53 | Outpatient (NON) | payer MEDICARE, SELFPAY ==
[2020-06-08 13:26] LABS: SARS-CoV-2 RNA PCR Negative
== END 2020-06-06 06:54 ==
PROVIDERS: PCP Family Medicine
DX: Z01.812 Encounter for preprocedural laboratory examination (principal); Z20.828 Contact with and (suspected) exposure to other viral communicable diseases; I35.0 Nonrheumatic aortic (valve) stenosis
CPT/HCPCS: 87635; C9803; U0003

== ENCOUNTER 2020-06-14 13:12 | Outpatient (CLI) | payer MEDICARE, SELFPAY ==
--- NOTE | ~2020-06-14 | US_ITS ---
EXAMINATION:US venous doppler LE RT INDICATION:Right leg pain TECHNIQUE: Multiple grayscale, color flow and Doppler images of the right lower extremity deep venous systems were obtained and reviewed. COMPARISON:02/18/2012 FINDINGS: The common femoral, superficial femoral and popliteal veins demonstrate normal respiratory variation, augmentation and compressibility. Color flow is also seen within the posterior tibial, pe roneal, greater saphenous and profunda veins. IMPRESSION: 1: No lower extremity deep venous thrombosis. Reviewed, dictated and finalized at location A. CAP
[2020-06-14 14:26] LABS: Basophils Percent Auto 0.5 % (0.2-1.2); Eosinophils Absolute Auto 0.2 K/mm3 (0-0.3); Eosinophils Percent Auto 2.4 % (0-4.4); Hematocrit 23.3 % (42.0-52.0); Hemoglobin 7.3 g/dL (14.0-18.0); Immature Granulocyte Absolute 0.03 K/mm3 (0.00-0.031); Immature Granulocyte Percent A 0.5 % (0-0.5); Lymphocytes Percent Auto 6.4 % (18.3-44.2); Mean Corpuscular HGB Conc 31.3 g/dl (32-36); Mean Corpuscular Hemoglobin 30.5 pg (26-34); Mean Corpuscular Volume 97.5 fl (80-100); Mean Platelet Volume 8.6 fl (7.4-10.4); Monocytes Absolute Auto 0.7 K/mm3 (0.1-0.6); Monocytes Percent Auto 11.8 % (2.6-8.5); Neutrophils Absolute Auto 4.9 K/mm3 (1.3-6.7); Neutrophils Percent Auto 78.4 % (45.5-73.1); Platelet Count Result 111 k/mm3 (150-375); Red Blood Count 2.39 M/mm3 (4.6-6.20); Red Cell Distribution Width 16.2 % (11.5-14.5); White Blood Count 6.3 K/mm3 (4.5-10.0)
[2020-06-14 16:45] LABS: Iron 20 ug/dL (49-181)
[2020-06-14 16:48] LABS: Alanine Aminotransferase 21 U/L (4-50); Albumin Level 3.5 g/dL (3.5-5.1); Alkaline Phosphatase 137 U/L (38-126); Anion Gap 8 mmol/L (8-16); Aspartate Amino Transferase 33 U/L (17-59); Bilirubin,Total 0.7 mg/dL (0.2-1.3); Blood Urea Nitrogen 30 mg/dL (9-20); Calcium 8.3 mg/dL (8.4-10.2); Carbon Dioxide 27 mmol/L (22-30); Chloride 101 mmol/L (98-107); Estimated Glomerular Filt Rate 58; Glucose 116 mg/dL (75-110); Potassium 4.3 mmol/L (3.4-5.0); Sodium 136 mmol/L (137-145)
[2020-06-14 16:56] LABS: Percent Iron Saturation 5 % (20-50)
== END 2020-06-14 13:13 | disposition home or self-care (01) ==
PROVIDERS: PCP Family Medicine; Referring Provider Internal Medicine Hematology & Oncology; Visit Provider Family Medicine
DX: M79.89 Other specified soft tissue disorders (principal); D50.9 Iron deficiency anemia, unspecified
CPT/HCPCS: 36415; 80053; 82728; 83540; 83550; 85025; 93971

== ENCOUNTER 2020-07-28 07:22 | Outpatient (RCR) | payer MEDICARE, SELFPAY | END 2020-08-23 23:59 | disposition home or self-care (01) | LOC: ANHWOC 07:22 | PROVIDERS: PCP Family Medicine; Visit Provider Family Medicine | DX: R60.9 Edema, unspecified (principal); L90.9 Atrophic disorder of skin, unspecified | CPT/HCPCS: 99212; 99213; A9270; G0463 ==

== ENCOUNTER 2020-09-19 13:24 | Outpatient (CLI) | payer MEDICARE, SELFPAY ==
--- NOTE | ~2020-09-19 | US_ITS ---
EXAMINATION: US aorta DATE: 09/19/2020 13:58 INDICATION: Abdominal aortic aneurysm without rupture. TECHNIQUE: Grayscale, color Doppler, and pulsed Doppler images of the aorta and common iliac arteries were obtained. COMPARISON: Ultrasound 09/09/2019 FINDINGS: The aorta demonstrates a 3.2 cm fusiform infrarenal aneurysm. The right common iliac artery measures 1.5 cm. The left common iliac artery measures 1.1 cm. IMPRESSION: 1. 3.2 cm fusiform infrarenal aortic aneurysm. Reviewed, dictated and finalized at location A. ETING INFORMATION ANALYST
== END 2020-09-19 13:25 | disposition home or self-care (01) ==
PROVIDERS: PCP Family Medicine; Visit Provider Family Medicine
DX: I71.4 Abdominal aortic aneurysm, without rupture (principal)
CPT/HCPCS: 76775

== ENCOUNTER 2020-10-10 09:00 | Outpatient (RCR) | payer MEDICARE, SELFPAY ==
[2020-07-12 11:53] VITALS: PULSE 70
--- NOTE | 2020-07-25 08:30 | PCCPR ---
Pt cxl due to quarantine from [facility] test for sleep study [place]. Pt will return 07/27.
--- NOTE | 2020-08-04 11:20 | PCCPR ---
Release to resume rehab Anastacio had a revision of his cochlear implant. Today we recieved a release from [facility] he may resume rehab by 08/10/20 with a limit of 10 lb lifting restriction x 2 weeks.
[2020-08-17 10:26] LABS: Glucose Point of Care 97 (65-105)
--- NOTE | 2020-08-31 09:46 | PCCPR ---
Addendum entered by Cheryl Awad RN 09/01/20 09:14: Absent due to cold weather. Original Note: Rob absent today for inclement weather.
--- NOTE | 2020-09-05 09:39 | PCCPR ---
Absent Spoke with Anastacio's regarding today's attendance with extremely cold temps and upcoming snow today. He will be absent today and not sure about the rest of the week yet.
--- NOTE | 2020-09-28 09:21 | PCCPR ---
Sent Anastacio home today, he came to class with increased SOB. Lungs clear, no swelling, and no weight gain. He states he isn't feeling the greatest after receiving second covid vaccine yesterday. He states he just feels tired/worn out. Hopes to return tomorrow.
--- NOTE | 2020-09-29 09:06 | PCCPR ---
Absent 09/26/20 Anastacio came in lobby and states he forgot his mask. 09/28/20 Came to class not feeling well he had the Covid vaccine on Saturday. 09/29/20 Matt called states he is still feeling weak post the covid vaccination. She also verbalized he is getting pretty forgetful.
--- NOTE | 2020-10-06 08:48 | PCCPR ---
Absent-MD appt
== END 2020-10-10 23:59 | disposition home or self-care (01) ==
LOC: ANHCPREHAB 09:00
PROVIDERS: PCP Family Medicine; Visit Provider Nurse Practitioner Adult Health
DX: Z95.2 Presence of prosthetic heart valve (principal)
CPT/HCPCS: 93798

== ENCOUNTER 2020-11-03 09:00 | Outpatient (RCR) | payer MEDICARE, SELFPAY ==
[2020-10-11 00:03] VITALS: PULSE 70
== END 2020-11-03 19:30 | disposition home or self-care (01) ==
LOC: ANHCPREHAB 09:00
PROVIDERS: PCP Family Medicine; Visit Provider Nurse Practitioner Adult Health
DX: Z95.2 Presence of prosthetic heart valve (principal)
CPT/HCPCS: 93798

== ENCOUNTER → 2020-11-17 10:32 | Outpatient (CLI) | payer MEDICARE, SELFPAY ==
--- NOTE | ~2020-11-17 | US_ITS ---
EXAMINATION: US right upper quadrant DATE: 11/17/2020 10:58 INDICATION: Abnormal levels of other serum enzymes. TECHNIQUE: Multiple grayscale and Doppler ultrasound images of the abdomen were obtained. COMPARISON: None FINDINGS: The visualized portions of the head and body of the pancreas are normal. The liver is heavenly l without focal lesion. No liver surface nodularity. There is normal flow in main portal vein. There is a 3.1 cm fusiform aneurysm of infrarenal aorta. The gallbladder is absent. The common duct is norm al and measures 4 mm. IMPRESSION: 1. 3.1 cm fusiform infrarenal aortic aneurysm. Reviewed, dictated and finalized at location A.
== END ==
PROVIDERS: PCP Family Medicine; Visit Provider Family Medicine
DX: R74.8 Abnormal levels of other serum enzymes (principal); I71.4 Abdominal aortic aneurysm, without rupture
CPT/HCPCS: 76705

== ENCOUNTER 2021-09-16 10:16 | Emergency (ER) | payer MEDICARE, SELFPAY ==
--- NOTE | ~2021-09-16 | XR_ITS ---
EXAMINATION: XR wrist LT min 3V EXAM DATE: 09/16/2021 10:34 INDICATION: gen PAIN Lt wrist x 2 days; no known injury . TECHNIQUE: Left wrist frontal, frontal with ulnar deviation, oblique and lateral projections obtained and reviewed. Correlation is made to left hand x-ray 10/01/2017. FINDINGS: There is left scapholunate dissociation with some capitate settling and volar intercalated segmental instability (VISI). There is severe loss of the radiocarpal joint space, osteoarthritis. T here are no acute fractures identified. No radiopaque foreign bodies identified. Mild vascular calcif ications. IMPRESSION: 1. Scapholunate dissociation,. 2. Severe left radiocarpal osteoarthritis. VISI. 3. No acute findings. Reviewed, dictated and finalized at location A. EL APPLIER
[2021-09-16 10:20] VITALS: BP 178/96; PULSE 94; RESP 20; TEMP 36.7; O2SAT 98
--- NOTE | 2021-09-16 10:58 | ED.UPPEXIN ---
HPI - Extremity Injury (Upper) General Chief Complaint: Extremity Injury, Upper Stated Complaint: L WRIST PAIN Time Seen by Provider: 09/16/21 10:50 Source: patient, family and RN notes reviewed Mode of arrival: ambulatory Limitations: no limitations History of Present Illness HPI narrative: Male patient presents to clinic with . Complaints of left wrist pain starting 2 days ago. Unsure if there was an injury patient denies falling reports being gone and unsure if patient fell. reports noticing bruise under her right eye yesterday realizes he may have fallen and injured himself while she was gone. Patient reports left wrist hurting. reports history of dementia left wrist is swollen. Patient reports difficulty bending left wrist. MD complaint: injury to: left and wrist Onset (ago): day(s) (2) Related Data Home Medications Medication Instructions Recorded Confirmed multivitamin 1 tablet PO DAILY 07/03/19 06/06/21 cholecalciferol (vitamin D3) 25 1,000 unit PO DAILY 08/12/19 06/06/21 mcg (1,000 unit) capsule Xarelto 20 mg PO DAILY 05/06/20 06/06/21 ascorbic acid (vitamin C) 500 mg PO DAILY 07/12/20 06/06/21 calcium carbonate 600 mg-vitamin 2 cap PO DAILY cap 10/26/20 06/06/21 D3 10 mcg (400 unit) capsule ferrous sulfate 142 mg (45 mg 45 mg PO DAILY tablet 10/26/20 06/06/21 iron) tablet,extended release aspirin 81 mg tablet,delayed 81 mg PO DAILY 11/02/20 06/06/21 release Allergies Allergy/AdvReac Type Severity Reaction Status Date / Time clopidogrel Allergy Unknown Itching Verified 06/23/21 10:52 Review of Systems Review of Systems: CONSTITUTIONAL: Denies fever, chills, or sweats. EYES: Denies visual changes, redness, or discharge. ENT: Denies rhinorrhea, congestion, sore throat, or otalgia. Left cochlear implant. CARDIOVASCULAR: Denies chest pain, palpitations, or edema. RESPIRATORY: Denies cough or dyspnea. GASTROINTESTINAL: Denies abdominal pain, nausea, vomiting, or diarrhea. GENITOURINARY: Denies dysuria or hematuria. SKIN: Denies rash or itching. Small red area under right eye. MUSCULOSKELETAL: Denies back pain. Left wrist pain with some swelling. NEUROLOGIC: Denies headache, numbness, or weakness. PSYCHIATRIC: Denies anxiety or depression. reports dementia. All other systems reviewed are negative, except as documented in HPI. [facility] Past Medical History Medical History Abdominal aortic aneurysm Acute on chronic anemia Anticoagulation adequate Basal cell carcinoma (~2010) Left ear 2010 left ear and chin 2015 Right cheek 2018 Back and behind right ear 2019 Benign prostatic hyperplasia Chronic anemia Chronic kidney disease, stage 3 Baseline creatinine between 1.4 and 1.70. Chronic kidney disease, stage 3 (moderate) Congestive heart failure Coronary artery disease With history of stents in 2007. Negative Lexiscan stress in 06/2016. Elevated troponin Essential hypertension Gastroesophageal reflux disease Generalized osteoarthritis of multiple sites Hearing loss Heart failure, unspecified History of basal cell cancer Excised from right ear, chin, and left ear. Hyperlipidemia Hypertensive chronic kidney disease with stage 1 through stage 4 chronic kidney disease, or unspecified chronic kidney disease Iron deficiency anemia Mixed hyperlipidemia Osteoarthritis Pacemaker 2019 Paroxysmal atrial fibrillation With history of cardioversion and cardiac ablation. On long-term anticoagulation. Right knee pain Scrotal edema Seronegative arthropathy of multiple sites Spinal stenosis Stool guaiac positive Subclinical hypothyroidism Subdural hematoma With evacuation after a fall years ago. Type 2 diabetes mellitus with kidney complication, without long-term current use of insulin Vitamin D deficiency Surgical History Surgical History H/O cardiac radi
[2021-09-16 11:43] VITALS: BP 136/74
== END 2021-09-16 11:44 | disposition home or self-care (01) ==
PROVIDERS: Emergency Provider Nurse Practitioner Family; PCP Family Medicine
DX: M25.332 Other instability, left wrist (principal); Z85.828 Personal history of other malignant neoplasm of skin; N40.0 Benign prostatic hyperplasia without lower urinary tract symptoms; I13.0 Hypertensive heart and chronic kidney disease with heart failure and stage 1 through stage 4 chronic kidney disease, or unspecified chronic kidney disease; N18.30 Chronic kidney disease, stage 3 unspecified; I50.9 Heart failure, unspecified; I25.10 Atherosclerotic heart disease of native coronary artery without angina pectoris; Z95.5 Presence of coronary angioplasty implant and graft; K21.9 Gastro-esophageal reflux disease without esophagitis; E78.5 Hyperlipidemia, unspecified; E78.2 Mixed hyperlipidemia; M19.90 Unspecified osteoarthritis, unspecified site; Z95.0 Presence of cardiac pacemaker; D50.9 Iron deficiency anemia, unspecified; Z79.01 Long term (current) use of anticoagulants; Z96.653 Presence of artificial knee joint, bilateral; Z98.42 Cataract extraction status, left eye; Z98.41 Cataract extraction status, right eye; Z96.643 Presence of artificial hip joint, bilateral; Z87.891 Personal history of nicotine dependence
CPT/HCPCS: 29125; 73110; 99214; A4565; G0463

== ENCOUNTER 2022-01-30 14:22 | Inpatient (IN) | payer MEDICARE, SELFPAY ==
[2022-01-30] VITALS (16 sets, daily range): BP systolic 108–155; BP diastolic 45–86; PULSE 64–90; RESP 12–26; TEMP 36.2–36.6; O2SAT 97–100; BMI 39.4
--- NOTE | ~2022-01-30 | XR_ITS ---
XR chest 1V portable 01/30/2022 17:05 Indication: GI bleed. CHF. Procedure: AP portable chest Comparison: Comparison to multiple prior studies sequentially, with oldest reviewed study dated 02/2019. Findings: Chronic elevation of the left diaphragm with moderate distention of the stomach. There is b ilateral perihilar/bibasilar airspace disease which may represent edema or pneumonia. No pneumothorax . No acute osseous abnormality. Cardiomegaly. Impression: 1: Bilateral airspace disease which may represent edema or pneumonia. 2: Chronic elevation of the left diaphragm. Reviewed, dictated and finalized at location A. Impression: 1: Bilateral airspace disease which may represent edema or pneumonia. 2: Chronic elevation of the left diaphragm.
--- NOTE | ~2022-01-30 | XR_ITS ---
EXAMINATION: XR chest 1V portable DATE: 02/01/2022 05:53 INDICATION: Shortness of breath. TECHNIQUE: A single frontal view of the chest was obtained. COMPARISON: Chest single view 01/30/[address] 09/15/2014 FINDINGS: There is marked elevation of left hemidiaphragm. There are airspace opacities in the mid an d lower lung zones. A calcified left lung nodule is consistent with old granulomatous disease. No ple ural effusion or pneumothorax. The heart size is normal. IMPRESSION: 1. Stable marked elevation of left hemidiaphragm. 2. Stable airspace opacities in the mid and lower lung zones, consistent with atelectasis versus pneu monia. Reviewed, dictated and finalized at location A. IMPRESSION: 1. Stable marked elevation of left hemidiaphragm. 2. Stable airspace opacities in the mid and lower lung zones, consistent with a telectasis versus pneumonia.
[2022-01-30 15:02] LABS: Mean Corpuscular HGB Conc 29.7 g/dl (32-36); Mean Corpuscular Hemoglobin 31.8 pg (26-34); Mean Corpuscular Volume 106.9 fl (80-100); Mean Platelet Volume 9.4 fl (7.4-10.4); Platelet Count Result 158 k/mm3 (150-375); Red Blood Count 1.73 M/mm3 (4.6-6.20); White Blood Count 6.1 K/mm3 (4.5-10.0)
[2022-01-30 15:08] LABS: Alanine Aminotransferase 18 U/L (6-50); Albumin Level 3.6 g/dL (3.5-5.1); Alkaline Phosphatase 57 U/L (38-126); Anion Gap 7 mmol/L (8-16); Aspartate Amino Transferase 26 U/L (17-59); Bilirubin,Total 0.5 mg/dL (0.2-1.3); Blood Urea Nitrogen 44 mg/dL (9-20); Calcium 8.1 mg/dL (8.4-10.2); Carbon Dioxide 22 mmol/L (22-30); Chloride 103 mmol/L (98-107); Estimated Glomerular Filt Rate 39; Glucose 113 mg/dL (65-110); INR 2.8; Potassium 3.9 mmol/L (3.4-5.0); Prothrombin Time 28.8 Seconds (11.1-14.7); Sodium 132 mmol/L (137-145)
[2022-01-30 15:09] LABS: Partial Thromboplastin Time 44.5 SECONDS (22.3-36.8)
[2022-01-30 15:20] LABS: Hematocrit 18.5 % (42.0-52.0); Hemoglobin 5.5 g/dL (14.0-18.0)
[2022-01-30 15:30] LABS: Anisocytosis 1+ (NORMAL); Band Neutrophils Percent 13 % (0-6); Lymphocytes Absolute Manual 0.24 K/mm3 (1.1-4.5); Lymphocytes Percent Manual 4 % (18-44); Neutrophils Absolute Manual 5.85 K/mm3 (1.3-6.7); Neutrophils Percent Manual 83 % (46-73); Ovalocytes 1+ (NORMAL); Platelet Estimate Adequate (Adequate); Total Cells Counted 100
--- NOTE | 2022-01-30 16:54 | ED.GIBLEED ---
HPI - GI Bleed General Chief complaint: GI Bleed Stated complaint: bloody stool Time Seen by Provider: 01/30/22 15:42 History of Present Illness HPI Narrative: 86-year-old male presents emergency room company by his . He comes in secondary to extreme weakness. Per his he been having bloody stools and subsequently she got concerned and brought him to emergency room. He has had this happen in the past. Patient is currently anticoagulated secondary to her valvular heart disease. He is extremely short of breath. Denies any chest pain or chest pressure at this time. Related Data Home Medications Medication Instructions Recorded Confirmed multivitamin 1 tablet PO DAILY 07/03/19 11/30/21 cholecalciferol (vitamin D3) 25 1,000 unit PO DAILY 08/12/19 11/30/21 mcg (1,000 unit) capsule rivaroxaban 20 mg tablet (Xarelto) 20 mg PO DAILY 05/06/20 11/30/21 ascorbic acid (vitamin C) 500 mg 500 mg PO DAILY 07/12/20 11/30/21 tablet calcium carbonate 600 mg-vitamin 2 cap PO DAILY 10/26/20 11/30/21 D3 10 mcg (400 unit) capsule aspirin 81 mg tablet,delayed 81 mg PO DAILY 11/02/20 11/30/21 release (Adult Low Dose Aspirin) ferrous sulfate 142 mg (45 mg 142 mg PO DAILY 10/30/21 11/30/21 iron) tablet,extended release (Slow Fe) Allergies Allergy/AdvReac Type Severity Reaction Status Date / Time clopidogrel Allergy Unknown Itching Verified 11/30/21 16:14 Review of Systems Review of Systems: CONSTITUTIONAL: Denies fever, chills, or sweats. Extremely fatigued and weak EYES: Denies visual changes, redness, or discharge. ENT: Denies rhinorrhea, congestion, sore throat, or otalgia. CARDIOVASCULAR: Denies chest pain, palpitations, or edema. RESPIRATORY: Short of breath. GASTROINTESTINAL: Bloody stools GENITOURINARY: Denies dysuria or hematuria. SKIN: Denies rash or itching. MUSCULOSKELETAL: Denies back pain, joint pain, or myalgia. NEUROLOGIC: Denies headache, numbness, or weakness. PSYCHIATRIC: Denies anxiety or depression. [facility] Past Medical History Medical History Abdominal aortic aneurysm Acute on chronic anemia Anticoagulation adequate Arthritis Basal cell carcinoma (~2010) Left ear 2010 left ear and chin 2015 Right cheek 2018 Back and behind right ear 2019 Benign prostatic hyperplasia Chronic anemia Chronic kidney disease, stage 3 Baseline creatinine between 1.4 and 1.70. Chronic kidney disease, stage 3 (moderate) Congestive heart failure Coronary artery disease With history of stents in 2007. Negative Lexiscan stress in 06/2016. Elevated troponin Essential hypertension Gastroesophageal reflux disease Generalized osteoarthritis of multiple sites Hearing loss Heart failure, unspecified History of adverse reaction to anesthesia History of basal cell cancer Excised from right ear, chin, and left ear. History of cardioversion Hyperlipidemia Hypertensive chronic kidney disease with stage 1 through stage 4 chronic kidney disease, or unspecified chronic kidney disease Iron deficiency anemia Memory loss Mixed hyperlipidemia MERCEDES (obstructive sleep apnea) Osteoarthritis Pacemaker 2019 Paroxysmal atrial fibrillation With history of cardioversion and cardiac ablation. On long-term anticoagulation. Rheumatoid arthritis Right knee pain Scrotal edema Seronegative arthropathy of multiple sites Skin cancer SOB (shortness of breath) Spinal stenosis Stool guaiac positive Subclinical hypothyroidism Subdural hematoma With evacuation after a fall years ago. Type 2 diabetes mellitus with kidney complication, without long-term current use of insulin Vitamin D deficiency Wears glasses Surgical History Surgical History H/O cardiac radiofrequency ablation (~2015) History of arthroplasty of left knee (~2013) History of arthroplasty of right knee (~2006) History of basal cell carcinoma excision H
--- NOTE | 2022-01-30 16:59 | ECG_ITS ---
Measurements Intervals Venus Rate: 70 P: -42 MT: 91 QRS: 22 QRSD: 42 T: -42 QT: 361 QTc: 389 Interpretive Statements ELECTRONIC VENTRICULAR PACEMAKER BASELINE ARTIFACT- I, II, III, AVR, AVL, AVF, V1-V6 NO FURTHER INTERPRETATION IS POSSIBLE ATYPICAL ECG Electronically Signed On 01-30-2022 21:25:09 CDT by Leroy Lion D.O.
[2022-01-30 17:25] LABS: SARS-CoV-2 RNA PCR Negative
[2022-01-30 17:32] LABS: NT Pro B Type Natriuretic Pept 2050 pg/mL (5-100); Troponin I 0.065 ng/mL (0.000-0.034)
--- NOTE | 2022-01-30 18:30 | PM.IMHP ---
H&P: HPI History of Present Illness Date/Time: 01/30/22 1830 Chief Complaint: Melena, rectal bleeding Narrative: Patient is an 86-year-old male with a past medical history of AAA, anemia, BPH, CHF, CAD, hypertension who presented to the ED with rectal bleeding. Patient's said that it all started last week however that is just what the patient told her. She stated that this could have been going on a lot longer. However she noticed that he has been come very short of breath and that everything is a lot more effort to do. She also stated that he [facility] however now it is a quarter relapse. She also stated that his swelling is worse than normal on his bilateral lower extremities. He denies any nausea, vomiting, diarrhea, constipation, chest pain, headaches, visual changes, abdominal pain. She stated that he has had this issue before and that he has been on Xarelto for many years. She also stated that he seems way more fatigued than normal and that he has been sleeping a lot. She said that his gait is little unsteady. Upon arrival he was noted to have a H&H of 5.5/18.5. Has occult blood also came back positive. GI has been consulted. Patient does have a noted elevation in troponin however it does appear to be around his baseline and was elevated about this last visit. Patient is being admitted to the hospitalist service as inpatient Review of Systems Review of Systems: All systems reviewed & are unremarkable except as noted in HPI and below PMFSH Past Medical History Medical History (Updated 01/30/22 @ 20:15 by ERICK BlackN-Toby) Abdominal aortic aneurysm Acute on chronic anemia Anticoagulation adequate Arthritis Basal cell carcinoma (~2010) Left ear 2010 left ear and chin 2015 Right cheek 2018 Back and behind right ear 2019 Benign prostatic hyperplasia Chronic anemia Chronic kidney disease, stage 3 Baseline creatinine between 1.4 and 1.70. Chronic kidney disease, stage 3 (moderate) Congestive heart failure Coronary artery disease With history of stents in 2007. Negative Lexiscan stress in 06/2016. Elevated troponin Essential hypertension Gastroesophageal reflux disease Generalized osteoarthritis of multiple sites Hearing loss Heart failure, unspecified History of adverse reaction to anesthesia History of basal cell cancer Excised from right ear, chin, and left ear. History of cardioversion Hyperlipidemia Hypertensive chronic kidney disease with stage 1 through stage 4 chronic kidney disease, or unspecified chronic kidney disease Iron deficiency anemia Memory loss Mixed hyperlipidemia MERCEDES (obstructive sleep apnea) Osteoarthritis Pacemaker 2019 Paroxysmal atrial fibrillation With history of cardioversion and cardiac ablation. On long-term anticoagulation. Rheumatoid arthritis Right knee pain Scrotal edema Seronegative arthropathy of multiple sites Skin cancer SOB (shortness of breath) Spinal stenosis Stool guaiac positive Subclinical hypothyroidism Subdural hematoma With evacuation after a fall years ago. Type 2 diabetes mellitus with kidney complication, without long-term current use of insulin Vitamin D deficiency Wears glasses Surgical History Surgical History H/O cardiac radiofrequency ablation (~2015) History of arthroplasty of left knee (~2013) History of arthroplasty of right knee (~2006) History of basal cell carcinoma excision History of cardiac radiofrequency ablation (~2015) 2011 2014 2016 2016 History of cataract extraction (~2015) Left eye 2010 Right eye 2016 History of cholecystectomy (~2005) History of cochlear implant (~2017) Re-implant 2020 History of hemorrhoidectomy (~1981) History of inguinal hernia repair (~1976) History of lumbosacral spine surgery radiofrequency nerve ablation 2014 History of permanent cardiac pacemaker placement History of repair of an
--- NOTE | 2022-01-30 18:35 | ADMGEN ---
This patient, Rob Britt, was admitted to IMU Room 211-01. Patient/family oriented to hospital policies and general routines including ID bracelet, bed and alarms, visiting hours, pain management, procedures, bathroom and other care routines, personal items, smoking policy, room service/diet, and visiting hours. Information on how to activate the Rapid Response Team has been discussed. Patient/Family are encouraged to report perceived risks to care and to ask questions if they do not understand what they are told or what they should do.
[2022-01-30 20:42] LABS: Glucose Point of Care 106 mg/dl (65-105)
[2022-01-30] MEDS: ATORVASTATIN 20 MG TABLET PO (20:49)
[2022-01-30] MEDS: FUROSEMIDE INJ 40 MG/4 ML VIAL IV PUSH (20:55)
[2022-01-31] VITALS (11 sets, daily range): BP systolic 128–153; BP diastolic 64–80; PULSE 64–76; RESP 18–23; TEMP 35.8–36.7; O2SAT 96–100
--- NOTE | 2022-01-31 | ECHO_ITS ---
Patient Info Name: Rob Britt Age: 86 years : 1935 Gender: Male Ht: 72 in Wt: 260 lbs BSA: 2.49 m2 HR: 92 bpm BP: 147 / 68 mmHg Heart Rhythm: Indeterminant, Paced Exam Date: 01/31/2022 8:26 AM Exam Location: [facility] Patient Status: Inpatient Admit Date: 01/30/2022 Staff Ordering Physician: Terry Ortega Logger: Dylan Jones RDCS, RT Attending Provider: Gino Daniels MD Referring Physician: Jordan LIAO; Exam Type: CA echo doppler color flow Study Info Indications R06.02 - Shortness of breath Complete two-dimensional, color flow and Doppler transthoracic echocardiogram is performed with contrast to opacify the left ventricle and to improve the deliniation of the left ventricle endocardial borders. Summary 1. Left ventricular chamber dimension is normal. 2. Left ventricular systolic function is normal, estimated at 60-65%. 3. There is no increased left ventricular wall thickness. 4. Left ventricular septal wall motion is abnormal with septal motion related to pacing. 5. The left ventricular diastolic function is grade III diastolic dysfunction. 6. There is no bioprosthetic aortic valve stenosis. 7. There is no regurgitation of the bioprosthetic aortic valve. 8. There is mild to moderate mitral valve regurgitation. 9. There is moderate tricuspid valve regurgitation. 10. Moderate pulmonary hypertension, estimated pulmonary arterial systolic pressure is 52 mmHg. Left Ventricle Left ventricular chamber dimension is normal. Left ventricular systolic function is normal, estimated at 60-65%. There is no increased left ventricular wall thickness. Left ventricular septal wall motion is abnormal with septal motion related to pacing. The left ventricular diastolic function is grade III diastolic dysfunction. Right Ventricle Right ventricular chamber dimension is not well visualized. Right ventricular systolic function is normal. Left Atria Left atrial chamber dimension is severely enlarged. Right Atria Right atrial chamber dimension is severely enlarged. Aortic Valve The bioprosthetic aortic valve is not well visualized. There is no bioprosthetic aortic valve stenosis. There is no regurgitation of the bioprosthetic aortic valve. Pulmonic Valve The pulmonic valve is not well visualized. There is mild pulmonic regurgitation. Mitral Valve The mitral valve has thickened leaflets. There is mild to moderate mitral valve regurgitation. The mitral valve annulus is severely calcified. Tricuspid Valve The tricuspid valve leaflets are normal. There is moderate tricuspid valve regurgitation. Moderate pulmonary hypertension, estimated pulmonary arterial systolic pressure is 52 mmHg. Pericardium/Pleural The pericardium appears not well visualized. There is small pericardial effusion. Inferior Vena Cava Dilated inferior vena cava with >50% collapse upon inspiration consistent with elevated right atrial pressure, 10 mmHg. Aorta The aortic root size at the sinus of Valsalva is normal. There is moderate aortic atherosclerosis. Left Ventricular Outflow Tract Name Value Normal LVOT 2D LVOT Diameter 2.1 cm LVOT Doppler --------
[2022-01-31 00:36] LABS: Hematocrit 23.2 % (42.0-52.0); Hemoglobin 7.3 g/dL (14.0-18.0)
[2022-01-31 00:41] LABS: Hemoglobin A1C 5.1 % (<5.7)
[2022-01-31 01:03] LABS: Troponin I 0.095 ng/mL (0.000-0.034)
[2022-01-31 05:06] LABS: Basophils Percent Auto 0.5 % (0.2-1.2); Eosinophils Absolute Auto 0.1 K/mm3 (0-0.3); Eosinophils Percent Auto 1.5 % (0-4.4); Hematocrit 24.9 % (42.0-52.0); Hemoglobin 7.9 g/dL (14.0-18.0); Immature Granulocyte Absolute 0.04 K/mm3 (0.00-0.031); Immature Granulocyte Percent A 0.5 % (0-0.5); Lymphocytes Absolute Auto 0.66 K/mm3 (0.9-3.2); Lymphocytes Percent Auto 8.8 % (18.3-44.2); Mean Corpuscular HGB Conc 31.7 g/dl (32-36); Mean Corpuscular Hemoglobin 31.7 pg (26-34); Mean Platelet Volume 9.2 fl (7.4-10.4); Monocytes Absolute Auto 0.9 K/mm3 (0.1-0.6); Monocytes Percent Auto 12.2 % (2.6-8.5); Neutrophils Absolute Auto 5.7 K/mm3 (1.3-6.7); Neutrophils Percent Auto 76.5 % (45.5-73.1); Nucleated Red Blood Cells Perc 0.3 % (0.0-0.2); Platelet Count Result 157 k/mm3 (150-375); Red Blood Count 2.49 M/mm3 (4.6-6.20); Red Cell Distribution Width 15.7 % (11.5-14.5); White Blood Count 7.5 K/mm3 (4.5-10.0)
[2022-01-31 05:12] LABS: INR 1.7; Prothrombin Time 19.3 Seconds (11.1-14.7)
[2022-01-31 05:13] LABS: Partial Thromboplastin Time 37.5 SECONDS (22.3-36.8)
[2022-01-31 05:20] LABS: Alanine Aminotransferase 19 U/L (6-50); Albumin Level 3.7 g/dL (3.5-5.1); Alkaline Phosphatase 61 U/L (38-126); Anion Gap 8 mmol/L (8-16); Aspartate Amino Transferase 28 U/L (17-59); Bilirubin,Total 1.1 mg/dL (0.2-1.3); Blood Urea Nitrogen 40 mg/dL (9-20); Calcium 8.5 mg/dL (8.4-10.2); Carbon Dioxide 22 mmol/L (22-30); Chloride 104 mmol/L (98-107); Estimated CRCL calculation 38 ml/min; Estimated Glomerular Filt Rate 39; Glucose 104 mg/dL (65-110); Magnesium 2.2 mg/dL (1.6-2.3); Potassium 3.8 mmol/L (3.4-5.0); Sodium 134 mmol/L (137-145)
[2022-01-31 05:27] LABS: Transferrin 304 mg/dL (206-381)
[2022-01-31 05:29] LABS: Iron 34 ug/dL (49-181)
[2022-01-31 05:42] LABS: Percent Iron Saturation 8 % (20-50)
[2022-01-31 06:55] LABS: Folic Acid > 20.0 ng/mL (2.76->20)
[2022-01-31] MEDS: PERFLUTREN LIPID MICROSPHERES 1.5 ML VIAL DILUTED TO 10 ML TOTAL VOLUME IV PUSH (08:42)
[2022-01-31] MEDS: CHOLECALCIFEROL 1,000 UNITS TABLET 1000 UNITS PO (08:43)
[2022-01-31] MEDS: PANTOPRAZOLE 40 MG TABLET PO (08:43)
[2022-01-31] MEDS: MULTIVITAMINS THERAPEUTIC TAB (*BKC) 1 TABLET PO (08:43)
[2022-01-31] MEDS: ASCORBIC ACID 500 MG TABLET PO (08:43)
--- NOTE | 2022-01-31 08:43 | IVDEFINITY ---
Prior to administration of IV Definity the patient was educated on the risks and benefits of the imaging enhancing agent including potential adverse side effects. The patient verbalized understanding. Allergies were verified. No exclusion criteria were identified and at least one of the following inclusion criteria were met: 1) physician request, 2) patient technically difficult to image (per the [place] [employer]chocardi[employer] guidelines of two or more segments not discernable within the apical view), or 3) questionable left ventricular function. ?
[2022-01-31] MEDS: FINASTERIDE 5 MG TABLET PO (08:44)
[2022-01-31] MEDS: TAMSULOSIN HCL 0.4 MG CAPSULE PO (08:44)
[2022-01-31] MEDS: ramipriL 5 MG CAPSULE 10 MG PO (08:45)
[2022-01-31] MEDS: FERROUS SULFATE DRIED 142 MG TABCR PO (08:47)
[2022-01-31 09:32] LABS: Glucose Point of Care 101 mg/dl (65-105)
--- NOTE | 2022-01-31 11:52 | P.PNIM_ITS ---
Progress Note: A&P Assessment and Plan (1) Lower GI bleed: Code(s): K92.2 - Gastrointestinal hemorrhage, unspecified Status: Acute Assessment and Plan: Monitor serum electrolytes, CBC, hemoglobin/hematocrit q.8 hours. If hemoglobin drops below 7 transfuse packed red blood cells Monitor for bloody bowel movements,chest pain,SOB or dizziness/lightheadedness Gastroenterology was consulted, appreciate assistance and recommendations Positive occult stool Pantoprazole BID Diet: NPO DVT Px: SCDs Avoid anti-coagulations (2) Acute on chronic anemia: Code(s): D64.9 - Anemia, unspecified Status: Acute Assessment and Plan: * H&H 5.5/18.5 * Patient has a known history of iron deficiency anemia. Patient is on iron supplements and ferrous sulfate. Will hold Xarelto on aspirin. * Patient has received a total of 4 units of packed red blood cells, will con tinue to trend H&H consult Gastroenterology who will evaluate the patient. Patient continues to be NPO. * 2/2 above (3) Paroxysmal atrial fibrillation: Code(s): I48.0 - Paroxysmal atrial fibrillation Status: Acute Assessment and Plan: * Appears to be a patient Dr. Alvarez * EKG shows atrial paced * No chest pain * Seems to be controlled * Xarelto on hold for GI bleed * Restart anticoagulation is appropriate (4) Chronic kidney disease, stage 3: Qualifiers: Chronic kidney disease stage 3 subtype: unspecified whether 3a or 3b Q ualified Code(s): N18.30 - Chronic kidney disease, stage 3 unspecified Code(s): N18.3 - Chronic kidney disease, stage 3 (moderate) Status: Acute Assessment and Plan: * BUN and creatinine 44/1.70 * Baseline appears to be 1.5-1.7 * Continue trend labs * Avoid nephrotoxic medications * Trend urine output (5) Essential hypertension: Code(s): I10 - Essential (primary) hypertension Status: Acute Assessment and Plan: * Continue home medications Stable (6) Coronary artery disease: Code(s): I25.10 - Atherosclerotic heart disease of [place] coronary artery without angina pectoris Status: Acute Assessment and Plan: * History of stents * Hold aspirin, Xarelto * Tele monitor (7) Benign prostatic hyperplasia: Code(s): N40.0 - Benign prostatic hyperplasia without lower urinary tract symptoms Status: Acute Assessment and Plan: * Continue tamsulosin and finasteride * Bladder scan p.r.n. (8) Hyperlipemia: Qualifiers: Hyperlipidemia type: mixed hyperlipidemia Qualified Code(s): E78.2 - Mixed hyperlipidemia Code(s): E78.5 - Hyperlipidemia, unspecified Status: Acute Assessment and Plan: * Continue atorvastatin from home (9) Chronic congestive heart failure: Qualifiers: Heart failure type: unspecified Qualified Code(s): I50.9 - Heart failure, unspecified Code(s): I50.9 - Heart failure, unspecified Status: Acute Assessment and Plan: Monitor vital signs, I&Os, BUN/creatinine, daily weights, neuro status and patient is a fall risk Monitor serum electrolytes, Keep serum Potassium>4 and serum Magnesium>2 and CBC Echocardiogram obtained which revealed a LVEF of 60% with grade 3 diastolic heart failure. Patient did receive a 1 time dose of furosemide 40 mg IVP
--- NOTE | 2022-01-31 11:52 | PM.IMPN ---
Progress Note: A&P Assessment and Plan (1) Lower GI bleed: Code(s): K92.2 - Gastrointestinal hemorrhage, unspecified Status: Acute Assessment and Plan: Monitor serum electrolytes, CBC, hemoglobin/hematocrit q.8 hours. If hemoglobin drops below 7 transfuse packed red blood cells Monitor for bloody bowel movements,chest pain,SOB or dizziness/lightheadedness Gastroenterology was consulted, appreciate assistance and recommendations Positive occult stool Pantoprazole BID Diet: NPO DVT Px: SCDs Avoid anti-coagulations (2) Acute on chronic anemia: Code(s): D64.9 - Anemia, unspecified Status: Acute Assessment and Plan: H&H 5.5/18.5 Patient has a known history of iron deficiency anemia. Patient is on iron supplements and ferrous sulfate. Will hold Xarelto on aspirin. Patient has received a total of 4 units of packed red blood cells, will continue to trend H&H consult Gastroenterology who will evaluate the patient. Patient continues to be NPO. 2/2 above (3) Paroxysmal atrial fibrillation: Code(s): I48.0 - Paroxysmal atrial fibrillation Status: Acute Assessment and Plan: Appears to be a patient Dr. Alvarez EKG shows atrial paced No chest pain Seems to be controlled Xarelto on hold for GI bleed Restart anticoagulation is appropriate (4) Chronic kidney disease, stage 3: Qualifiers: Chronic kidney disease stage 3 subtype: unspecified whether 3a or 3b Qualified Code(s): N18.30 - Chronic kidney disease, stage 3 unspecified Code(s): N18.3 - Chronic kidney disease, stage 3 (moderate) Status: Acute Assessment and Plan: BUN and creatinine 44/1.70 Baseline appears to be 1.5-1.7 Continue trend labs Avoid nephrotoxic medications Trend urine output (5) Essential hypertension: Code(s): I10 - Essential (primary) hypertension Status: Acute Assessment and Plan: Continue home medications Stable (6) Coronary artery disease: Code(s): I25.10 - Atherosclerotic heart disease of [place] coronary artery without angina pectoris Status: Acute Assessment and Plan: History of stents Hold aspirin, Xarelto Tele monitor (7) Benign prostatic hyperplasia: Code(s): N40.0 - Benign prostatic hyperplasia without lower urinary tract symptoms Status: Acute Assessment and Plan: Continue tamsulosin and finasteride Bladder scan p.r.n. (8) Hyperlipemia: Qualifiers: Hyperlipidemia type: mixed hyperlipidemia Qualified Code(s): E78.2 - Mixed hyperlipidemia Code(s): E78.5 - Hyperlipidemia, unspecified Status: Acute Assessment and Plan: Continue atorvastatin from home (9) Chronic congestive heart failure: Qualifiers: Heart failure type: unspecified Qualified Code(s): I50.9 - Heart failure, unspecified Code(s): I50.9 - Heart failure, unspecified Status: Acute Assessment and Plan: Monitor vital signs, I&Os, BUN/creatinine, daily weights, neuro status and patient is a fall risk Monitor serum electrolytes, Keep serum Potassium>4 and serum Magnesium>2 and CBC Echocardiogram obtained which revealed a LVEF of 60% with grade 3 diastolic heart failure. Patient did receive a 1 time dose of furosemide 40 mg IVP x1. Continue to monitor for fluid volume overload. Currently the patient does not have symptoms or signs related to fluid volume overload. No pedal edema, lung sounds diminished, no JVD. Resume home medications when appropriate (10) Elevated troponin: Code(s): R79.89 - Other specified abnormal findings of blood chemistry Status: Acute Assessment and Plan: Elevated troponin possibly due to demand ischemia from acute anemia. Continue to monitor. Patient denies any chest pain or-additional shortness of breath. Subjective Da
[2022-01-31 12:09] LABS: Glucose Point of Care 104 mg/dl (65-105)
--- NOTE | 2022-01-31 15:01 | WPDGICN ---
Assessment and Plan Assessment and plan (1) Rectal bleeding: Code(s): K62.5 - Hemorrhage of anus and rectum Status: Acute Assessment and Plan: Patient with recurrent rectal bleeding. Presentation very similar to bleeding over the last 1 and half to 2 years. It appears as though patient has hemorrhoids and perhaps diverticulosis. This appears to be aggravated bleeding because of Xarelto anticoagulation. At present time I have offered repeat endoscopy to the patient however in view of advanced age he and his daughter feel that observation is appropriate and I would agree. Question remains whether it is safe to restart anticoagulation. And will defer this to Cardiology service. Definitely best to hold anticoagulation for the immediate future. High-fiber diet is advised continue to monitor hemoglobin. (2) Acute on chronic anemia: Code(s): D64.9 - Anemia, unspecified Status: Acute Assessment and Plan: Patient with recurrent anemia. He has had difficulty with anemia in the past. This has been attributed to hemorrhoidal bleeding. He does have diverticular disease. Previously monitored by Dr. Ruelas of the hematology service. Hemoglobin recently had been known to improve. he may benefit from recurrent iron replacement therapy. Iron studies will be obtained if not already accomplished. (3) Anticoagulated: Code(s): Z79.01 - nursing home (current) use of anticoagulants Status: Acute Assessment and Plan: Patient on Xarelto anticoagulation because of atrial fibrillation and history of valvular heart disease. He does have cardiac stents. Anticoagulation is a balancing act in this patient as he is prone to bleeding while on anticoagulation but there is a cardiac benefit. Would appreciate cardiology insight as to whether anticoagulation is necessary going forward. (4) Obesity (BMI 30-39.9): Code(s): E66.9 - Obesity, unspecified Status: Acute (5) Paroxysmal atrial fibrillation: Code(s): I48.0 - Paroxysmal atrial fibrillation Status: Acute (6) Abdominal aortic aneurysm: Qualifiers: Presence of rupture: without rupture Qualified Code(s): I71.4 - Abdominal aortic aneurysm, without rupture Code(s): I71.4 - Abdominal aortic aneurysm, without rupture Status: Acute (7) Coronary artery disease: Code(s): I25.10 - Atherosclerotic heart disease of [place] coronary artery without angina pectoris Status: Acute GI Consult Note Consult date/time: 01/31/22 15:01 Reason for consult: Rectal bleeding and anemia. HPI: Rob Britt is a 86 year old male With an underlying history of chronic anemia, BPH, CHF, CAD, hypertension. Patient presented to the emergency room because of blood in his stool. Patient has history of dementia. Apparently is notice blood in his stools over at least 1 week. He is on Xarelto because of atrial fibrillation and valvular heart disease. Upon presenting to the emergency room has baseline anemia was loaded to be decreased. His hemoglobin of 5.5 in the ER. Overnight he has received 2units of blood. No significant additional bleeding has been identified. Xarelto is now being held. Patient's past medical history is significant for hard of hearing, dementia. Agree next baseline anemia. He is followed by hematology service. Patient had a similar presentation in December of 2019 at which time EGD was unremarkable. Colonoscopy revealed diverticulosis and internal hemorrhoids. Patient eventually had Xarelto restarted. Patient had recurrent anemia with some bleeding prompting additional workup at [facility] in May of 2020 with similar findings internal hemorrhoids were felt to be the culprit at that time as well. Patient currently alert comfortable at rest. History is obtained with the assistance of his daughter. [facility] Past Medical History Medical History (Updated 01/31/22 @ 15:06 by Agnes
[2022-01-31 16:39] LABS: Glucose Point of Care 89 mg/dl (65-105)
--- NOTE | 2022-01-31 16:51 | PC.NURSE ---
This patient, Rob Britt, was transfered from IMU Room 232-01 to 3 med surg 321-2. Patient/family oriented to hospital policies and general routines including ID bracelet, bed and alarms, visiting hours, pain management, procedures, bathroom and other care routines, personal items, smoking policy, room service/diet, and visiting hours. Information on how to activate the Rapid Response Team has been discussed. Patient/Family are encouraged to report perceived risks to care and to ask questions if they do not understand what they are told or what they should do.
--- NOTE | 2022-01-31 17:00 | PC.NURSE ---
This patient, Rob Britt, was transferred to [facility] on 01/31/22 at 1701. Personal belongings sent with patient. Report given to Smitha ESPINOZA. Appropriate documentation sent with patient.
--- NOTE | 2022-01-31 18:04 | PC.NURSE ---
transfer report was received from [facility]
--- NOTE | 2022-01-31 18:41 | PC.NURSE ---
no scd machine up on the floor ordered from central supply awaiting delivery of SCD machine, pt and informed that machine is for preventing blood clots
[2022-01-31] MEDS: ATORVASTATIN 20 MG TABLET PO (21:12)
[2022-01-31] MEDS: PANTOPRAZOLE SODIUM IV 40 MG VIAL IV PUSH (21:12)
[2022-01-31 22:27] LABS: Glucose Point of Care 117 mg/dl (65-105)
[2022-02-01 06:00] VITALS: BP 139/60; PULSE 70; RESP 18; TEMP 35.6; O2SAT 100
[2022-02-01 06:49] LABS: Basophils Percent Auto 0.4 % (0.2-1.2); Eosinophils Absolute Auto 0.2 K/mm3 (0-0.3); Hematocrit 23.9 % (42.0-52.0); Hemoglobin 7.3 g/dL (14.0-18.0); Immature Granulocyte Absolute 0.05 K/mm3 (0.00-0.031); Immature Granulocyte Percent A 0.6 % (0-0.5); Lymphocytes Absolute Auto 0.57 K/mm3 (0.9-3.2); Lymphocytes Percent Auto 7.1 % (18.3-44.2); Mean Corpuscular HGB Conc 30.5 g/dl (32-36); Mean Corpuscular Hemoglobin 31.6 pg (26-34); Mean Corpuscular Volume 103.5 fl (80-100); Mean Platelet Volume 9.2 fl (7.4-10.4); Monocytes Absolute Auto 0.9 K/mm3 (0.1-0.6); Monocytes Percent Auto 11.1 % (2.6-8.5); Neutrophils Absolute Auto 6.3 K/mm3 (1.3-6.7); Neutrophils Percent Auto 78.8 % (45.5-73.1); Nucleated Red Blood Cells Perc 0.4 % (0.0-0.2); Platelet Count Result 145 k/mm3 (150-375); Red Blood Count 2.31 M/mm3 (4.6-6.20); Red Cell Distribution Width 15.8 % (11.5-14.5)
[2022-02-01 07:10] LABS: Alanine Aminotransferase 20 U/L (6-50); Albumin Level 3.5 g/dL (3.5-5.1); Alkaline Phosphatase 57 U/L (38-126); Anion Gap 4 mmol/L (8-16); Aspartate Amino Transferase 29 U/L (17-59); Bilirubin,Total 0.8 mg/dL (0.2-1.3); Blood Urea Nitrogen 38 mg/dL (9-20); Calcium 8.4 mg/dL (8.4-10.2); Carbon Dioxide 25 mmol/L (22-30); Chloride 105 mmol/L (98-107); Estimated CRCL calculation 43 ml/min; Estimated Glomerular Filt Rate 45; Glucose 103 mg/dL (65-110); Magnesium 2.3 mg/dL (1.6-2.3); Potassium 3.9 mmol/L (3.4-5.0); Sodium 134 mmol/L (137-145)
[2022-02-01] MEDS: PANTOPRAZOLE SODIUM IV 40 MG VIAL IV PUSH (08:42)
[2022-02-01 10:00] VITALS: PULSE 70; RESP 18; O2SAT 96
--- NOTE | 2022-02-01 10:12 | WPDGIPROGNO ---
Progress Note: A&P Assessment and Plan (1) Rectal bleeding: Code(s): K62.5 - Hemorrhage of anus and rectum Status: Acute Assessment and Plan: Patient's rectal bleeding is. Since holding anticoagulation. If possible continue to hold anticoagulation if required to restart would try to hold it for week to allow cessation of bleeding. Recent workup on several occasions over the last several years with similar presentation reveals internal hemorrhoids to have been cause of bleeding. Alternative would be to consider hemorrhoid surgery prior to restarting anticoagulation. (2) Acute on chronic anemia: Code(s): D64.9 - Anemia, unspecified Status: Acute Assessment and Plan: Patient with chronic anemia appears to have worsened recently. Likely related to this GI bleeding episode. Now resolved. Continue monitor hemoglobin after discharge. 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 Likely contributes to his intermittent bleeding episodes and intermittent anemia. Surgery opinion on continued anticoagulation is suggested. (4) H/O valvular heart disease: Code(s): Z86.79 - Personal history of other diseases of the circulatory system Status: Acute (5) Paroxysmal atrial fibrillation: Code(s): I48.0 - Paroxysmal atrial fibrillation Status: Acute Subjective Date/time seen: 02/01/22 10:12 Patient comfortable this morning. No additional bleeding noted. Tolerated diet. Denies abdominal pain. Anticoagulation on hold present. Review of Systems Review of Systems: Review of systems noncontributory. Exam Narrative: On physical exam patient is alert comfortable at rest. Vital signs stable. He appears oriented today. Somewhat slow mentation. Very hard of hearing. Lungs are clear. Heart without murmur. Abdomen bowel sounds present soft nontender with no organomegaly. Objective Data Vital Signs Vital Signs: Vital Signs - 24 hr 01/31/22 12:18 01/31/22 12:00 01/31/22 16:07 Temperature 96.4 F L 97.6 F Pulse Rate 69 70 72 Respiratory Rate 22 H 22 H Blood Pressure 128/77 153/64 H Pulse Oximetry 96 98 Oxygen Delivery 01/31/22 22:00 01/31/22 20:00 02/01/22 06:00 Temperature 96.8 F L 96.0 F L Pulse Rate 76 70 Respiratory Rate 18 18 Blood Pressure 129/80 139/60 Pulse Oximetry 99 100 Oxygen Delivery Room Air Intake/Output Intake/Output: Intake & Output 01/29/22 01/30/22 01/31/22 02/01/22 23:59 23:59 23:59 23:59 Intake Total 1050 440 240 Output Total 600 1150 203 Balance 450 -710 37 Meds/Results Medications: Active Medications Generic Name Dose Route Start Last Admin Trade Name Freq PRN Reason Stop Dose Admin Ascorbic Acid 500 mg 01/31/22 09:00 01/31/22 08:43 Ascorbic Acid 500 Mg Tablet PO 500 mg DAILY JAVAN Administration Atorvastatin Calcium 20 mg 01/30/22 21:00 01/31/22 21:12 Atorvastatin 20 Mg Tablet PO 20 mg HS JAVAN Administration Calcium Carbonate 500 mg 01/31/22 09:00 01/31/22 08:43 Calcium/Vitamin D 500 Mg Tablet PO 03/02/22 08:59 500 mg DAILY JAVAN Administration Dextrose 12.5 gm 01/30/22 20:10 Dextrose 50% 25 Gm/50 Ml Syringe IV PUSH PRN PRN Hypoglycemia Protocol Ferrous Sulfate 142 mg 01/31/22 09:00 01/31/22 08:47 Ferrous Sulfate Dried 142 Mg Tabcr PO 142 mg DAILY JAVAN Administration Finasteride 5 mg 01/31/22 09:00 01/31/22 08:44 Finasteride 5 Mg Tablet PO 5 mg DAILY JAVAN Administration Glucagon 1 mg 01/30/22 20:10 Glucagon For Inj 1 Mg Vial IM PRN PRN Hypoglycemia Protocol Glucose 15 gm 01/30/22 20:10 Glucose Oral Gel 15 Gm Of Glucse In 37.5 Gm Tube PO PRN PRN Hypoglycemia Protocol Dextrose 1,000 mls @ 100 mls/hr 01/30/22 2
[2022-02-01] MEDS: ASCORBIC ACID 500 MG TABLET PO (10:29)
[2022-02-01] MEDS: ramipriL 5 MG CAPSULE 10 MG PO (10:29)
[2022-02-01] MEDS: FINASTERIDE 5 MG TABLET PO (10:29)
[2022-02-01] MEDS: FERROUS SULFATE DRIED 142 MG TABCR PO (10:29)
[2022-02-01] MEDS: MULTIVITAMINS THERAPEUTIC TAB (*BKC) 1 TABLET PO (10:29)
[2022-02-01] MEDS: CHOLECALCIFEROL 1,000 UNITS TABLET 1000 UNITS PO (10:29)
[2022-02-01] MEDS: TAMSULOSIN HCL 0.4 MG CAPSULE PO (10:29)
--- NOTE | 2022-02-01 10:39 | P.DS_ITS ---
DS: Admitting Diagnosis Discharge Date February 01, 2022 Admitting Diagnosis Acute on chronic anemia, unknown DS: Discharge Diagnosis Discharge Diagnosis (1) Lower GI bleed: Code(s): K92.2 - Gastrointestinal hemorrhage, unspecified Status: Acute Assessment and Plan: Monitor serum electrolytes, CBC, hemoglobin/hematocrit q.8 hours. If hemoglobin drops below 7 transfuse packed red blood cells Monitor for bloody bowel movements,chest pain,SOB or dizziness/lightheadedness Gastroenterology was consulted, appreciate assistance and recommendations Positive occult stool Pantoprazole BID Diet: NPO DVT Px: SCDs Avoid anti-coagulations--resume anticoagulation patient has a artificial valve (2) Acute on chronic anemia: Code(s): D64.9 - Anemia, unspecified Status: Acute Assessment and Plan: * H&H 5.5/18.5 * Patient has a known history of iron deficiency anemia. Patient is on iron supplements and ferrous sulfate. Will hold Xarelto on aspirin. * Patient has received a total of 4 units of packed red blood cells, will continue to trend H&H consult Gastroenterology who will evaluate the patient. Patient continues to be NPO. * 2/2 above (3) Paroxysmal atrial fibrillation: Code(s): I48.0 - Paroxysmal atrial fibrillation Status: Acute Assessment and Plan: * Appears to be a patient Dr. Alvarez * EKG shows atrial paced * No chest pain * Seems to be controlled * Xarelto on hold for GI bleed * Restart anticoagulation is appropriate (4) Chronic kidney disease, stage 3: Qualifiers: Chronic kidney disease stage 3 subtype: unspecified whether 3a or 3b Qualified Code(s): N18.30 - Chronic kidney disease, stage 3 unspecified Code(s): N18.3 - Chronic kidney disease, stage 3 (moderate) Status: Acute Assessment and Plan: * BUN and creatinine 44/1.70 * Baseline appears to be 1.5-1.7 * Continue trend labs * Avoid nephrotoxic medications * Trend urine output (5) Essential hypertension: Code(s): I10 - Essential (primary) hypertension Status: Acute Assessment and Plan: * Continue home medications Stable (6) Coronary artery disease: Code(s): I25.10 - Atherosclerotic heart disease of [place] coronary artery without angina pectoris Status: Acute Assessment and Plan: * History of stents * Hold aspirin, Xarelto * Tele monitor (7) Benign prostatic hyperplasia: Code(s): N40.0 - Benign prostatic hyperplasia without lower urinary tract symptoms Status: Acute Assessment and Plan: * Continue tamsulosin and finasteride * Bladder scan p.r.n. (8) Hyperlipemia: Qualifiers: Hyperlipidemia type: mixed hyperlipidemia Qualified Code(s): E78.2 - Mixed hyperlipidemia Code(s): E78.5 - Hyperlipidemia, unspecified Status: Acute Assessment and Plan: * Continue atorvastatin from home (9) Chronic congestive heart failure: Qualifiers: Heart failure type: unspecified Qualified Code(s): I50.9 - Heart failure, unspecified Code(s): I50.9 - Heart failure, unspecified Status: Acute Assessment and Plan: Monitor vital signs, I&Os, BUN/creatinine, daily weights, neuro status and patient is a fall risk Monitor serum electrolytes, Keep seru
--- NOTE | 2022-02-01 10:39 | PM.DS ---
DS: Admitting Diagnosis Discharge Date February 01, 2022 Admitting Diagnosis Acute on chronic anemia, unknown DS: Discharge Diagnosis Discharge Diagnosis (1) Lower GI bleed: Code(s): K92.2 - Gastrointestinal hemorrhage, unspecified Status: Acute Assessment and Plan: Monitor serum electrolytes, CBC, hemoglobin/hematocrit q.8 hours. If hemoglobin drops below 7 transfuse packed red blood cells Monitor for bloody bowel movements,chest pain,SOB or dizziness/lightheadedness Gastroenterology was consulted, appreciate assistance and recommendations Positive occult stool Pantoprazole BID Diet: NPO DVT Px: SCDs Avoid anti-coagulations--resume anticoagulation patient has a artificial valve (2) Acute on chronic anemia: Code(s): D64.9 - Anemia, unspecified Status: Acute Assessment and Plan: H&H 5.5/18.5 Patient has a known history of iron deficiency anemia. Patient is on iron supplements and ferrous sulfate. Will hold Xarelto on aspirin. Patient has received a total of 4 units of packed red blood cells, will continue to trend H&H consult Gastroenterology who will evaluate the patient. Patient continues to be NPO. 2/2 above (3) Paroxysmal atrial fibrillation: Code(s): I48.0 - Paroxysmal atrial fibrillation Status: Acute Assessment and Plan: Appears to be a patient Dr. Alvarez EKG shows atrial paced No chest pain Seems to be controlled Xarelto on hold for GI bleed Restart anticoagulation is appropriate (4) Chronic kidney disease, stage 3: Qualifiers: Chronic kidney disease stage 3 subtype: unspecified whether 3a or 3b Qualified Code(s): N18.30 - Chronic kidney disease, stage 3 unspecified Code(s): N18.3 - Chronic kidney disease, stage 3 (moderate) Status: Acute Assessment and Plan: BUN and creatinine 44/1.70 Baseline appears to be 1.5-1.7 Continue trend labs Avoid nephrotoxic medications Trend urine output (5) Essential hypertension: Code(s): I10 - Essential (primary) hypertension Status: Acute Assessment and Plan: Continue home medications Stable (6) Coronary artery disease: Code(s): I25.10 - Atherosclerotic heart disease of [place] coronary artery without angina pectoris Status: Acute Assessment and Plan: History of stents Hold aspirin, Xarelto Tele monitor (7) Benign prostatic hyperplasia: Code(s): N40.0 - Benign prostatic hyperplasia without lower urinary tract symptoms Status: Acute Assessment and Plan: Continue tamsulosin and finasteride Bladder scan p.r.n. (8) Hyperlipemia: Qualifiers: Hyperlipidemia type: mixed hyperlipidemia Qualified Code(s): E78.2 - Mixed hyperlipidemia Code(s): E78.5 - Hyperlipidemia, unspecified Status: Acute Assessment and Plan: Continue atorvastatin from home (9) Chronic congestive heart failure: Qualifiers: Heart failure type: unspecified Qualified Code(s): I50.9 - Heart failure, unspecified Code(s): I50.9 - Heart failure, unspecified Status: Acute Assessment and Plan: Monitor vital signs, I&Os, BUN/creatinine, daily weights, neuro status and patient is a fall risk Monitor serum electrolytes, Keep serum Potassium>4 and serum Magnesium>2 and CBC Echocardiogram obtained which revealed a LVEF of 60% with grade 3 diastolic heart failure. Patient did receive a 1 time dose of furosemide 40 mg IVP x1. Continue to monitor for fluid volume overload. Currently the patient does not have symptoms or signs related to fluid volume overload. No pedal edema, lung sounds diminished, no JVD. Resume home medications when appropriate (10) Elevated troponin: Code(s): R79.89 - Other specified abnormal findings of blood chemistry Status: Acute Assessment and Plan:
[2022-02-01 10:41] VITALS: O2SAT 96
[2022-02-01 11:39] LABS: Hematocrit 24.2 % (42.0-52.0); Hemoglobin 7.2 g/dL (14.0-18.0)
[2022-02-01 12:04] LABS: Glucose Point of Care 113 mg/dl (65-105)
[2022-02-01 12:04] LABS: Glucose Point of Care 114 mg/dl (65-105)
[2022-02-01 14:00] VITALS: BP 119/78; PULSE 77; RESP 20; TEMP 36; O2SAT 94
== END 2022-02-01 16:45 | disposition home health service (06) | DRG 394 ==
LOC: ANHED 17:01 → ANHIMU 18:27 → ANH3MEDSUR 02-01 08:11 → ANHIMU 02-02 12:52
PROVIDERS: Nurse Practitioner; Admitting Provider Internal Medicine; Emergency Provider Emergency Medicine; PCP Family Medicine; Visit Provider Nurse Practitioner Family
DX: K64.8 Other hemorrhoids (principal); I13.0 Hypertensive heart and chronic kidney disease with heart failure and stage 1 through stage 4 chronic kidney disease, or unspecified chronic kidney disease; I50.32 Chronic diastolic (congestive) heart failure; I24.8 Other forms of acute ischemic heart disease; D63.1 Anemia in chronic kidney disease; D50.9 Iron deficiency anemia, unspecified; Z20.822 Contact with and (suspected) exposure to COVID-19; E11.22 Type 2 diabetes mellitus with diabetic chronic kidney disease; E78.2 Mixed hyperlipidemia; E03.9 Hypothyroidism, unspecified; E55.9 Vitamin D deficiency, unspecified; E66.9 Obesity, unspecified; F03.90 Unspecified dementia, unspecified severity, without behavioral disturbance, psychotic disturbance, mood disturbance, and anxiety; G47.33 Obstructive sleep apnea (adult) (pediatric); H91.90 Unspecified hearing loss, unspecified ear; I25.10 Atherosclerotic heart disease of native coronary artery without angina pectoris; I48.0 Paroxysmal atrial fibrillation; I71.4 Abdominal aortic aneurysm, without rupture; K21.9 Gastro-esophageal reflux disease without esophagitis; R26.81 Unsteadiness on feet; M06.9 Rheumatoid arthritis, unspecified; M48.00 Spinal stenosis, site unspecified; N40.0 Benign prostatic hyperplasia without lower urinary tract symptoms; N18.30 Chronic kidney disease, stage 3 unspecified; R77.8 Other specified abnormalities of plasma proteins; R53.1 Weakness; Z96.653 Presence of artificial knee joint, bilateral; Z79.01 Long term (current) use of anticoagulants; Z95.5 Presence of coronary angioplasty implant and graft; Z95.0 Presence of cardiac pacemaker; Z87.891 Personal history of nicotine dependence; Z96.643 Presence of artificial hip joint, bilateral; Z68.39 Body mass index [BMI] 39.0-39.9, adult; Z85.828 Personal history of other malignant neoplasm of skin; Z98.41 Cataract extraction status, right eye; Z98.42 Cataract extraction status, left eye; Z90.49 Acquired absence of other specified parts of digestive tract; Z79.82 Long term (current) use of aspirin; Z95.2 Presence of prosthetic heart valve
CPT/HCPCS: 36415; 36430; 71045; 80053; 82607; 82728; 82746; 82948; 83036; 83540; 83550; 83735; 83880; 84443; 84466; 84484; 85014; 85018; 85025; 85610; 85730; 86850; 86900; 86901; 86920; 93005; 97161; 97165; 99285; A9270; C8929; C9113; C9803; J1940; J7050; P9016; Q9957; U0003; U0005

== ENCOUNTER 2022-02-08 13:26 | Outpatient (NON) | payer MEDICARE, SELFPAY ==
[2022-02-08 13:47] LABS: Basophils Percent Auto 0.6 % (0.2-1.2); Eosinophils Absolute Auto 0.2 K/mm3 (0-0.3); Eosinophils Percent Auto 2.9 % (0-4.4); Hematocrit 26.1 % (42.0-52.0); Hemoglobin 7.8 g/dL (14.0-18.0); Immature Granulocyte Absolute 0.02 K/mm3 (0.00-0.031); Immature Granulocyte Percent A 0.4 % (0-0.5); Lymphocytes Absolute Auto 0.61 K/mm3 (0.9-3.2); Lymphocytes Percent Auto 11.8 % (18.3-44.2); Mean Corpuscular HGB Conc 29.9 g/dl (32-36); Mean Corpuscular Volume 103.6 fl (80-100); Mean Platelet Volume 9.8 fl (7.4-10.4); Monocytes Absolute Auto 0.7 K/mm3 (0.1-0.6); Monocytes Percent Auto 13.6 % (2.6-8.5); Neutrophils Absolute Auto 3.7 K/mm3 (1.3-6.7); Neutrophils Percent Auto 70.7 % (45.5-73.1); Platelet Count Result 192 k/mm3 (150-375); Red Blood Count 2.52 M/mm3 (4.6-6.20); Red Cell Distribution Width 14.4 % (11.5-14.5); White Blood Count 5.2 K/mm3 (4.5-10.0)
== END 2022-02-08 13:27 | disposition home or self-care (01) ==
LOC: ANHLAB 13:27
PROVIDERS: PCP Family Medicine; Visit Provider Nurse Practitioner Family
DX: D64.9 Anemia, unspecified (principal); K62.5 Hemorrhage of anus and rectum
CPT/HCPCS: 36415; 85025

== ENCOUNTER → 2022-03-05 11:13 | Outpatient (CLI) | payer MEDICARE, SELFPAY ==
--- NOTE | ~2022-03-05 | US_ITS ---
EXAMINATION: US venous doppler [facility] DATE: 03/05/2022 11:47 INDICATION: Bilateral lower limb swelling TECHNIQUE: Velasco scale images without and with compression and Doppler images of the bilateral lower e xtremity veins were obtained. COMPARISON: 06/14/2020 FINDINGS: The right common femoral vein, profunda femoral vein, femoral vein, popliteal vein, peroneal trunk, p osterior tibial veins, and greater saphenous vein are patent. The left common femoral vein, profunda femoral vein, femoral vein, popliteal vein, peroneal trunk, po sterior tibial veins, and greater saphenous vein are patent. IMPRESSION: 1. Patent bilateral lower extremity veins. No evidence of deep venous thrombosis. Reviewed, dictated and finalized at location A. IMPRESSION: 1. Patent bilateral lower extremity veins. No evidence of deep venous thrombosi s.
== END ==
PROVIDERS: PCP Family Medicine; Visit Provider Family Medicine
DX: R22.43 Localized swelling, mass and lump, lower limb, bilateral (principal); Z86.79 Personal history of other diseases of the circulatory system
CPT/HCPCS: 93970

== ENCOUNTER 2022-07-03 21:05 | Emergency (ER) | payer MEDICARE, SELFPAY ==
[2022-07-03 21:10] VITALS: BP 144/72; PULSE 95; RESP 20; TEMP 36.2; O2SAT 99
--- NOTE | 2022-07-03 22:52 | PC.NURSE ---
Patient's to triage desk to notify this RN that they no longer wanted to be seen. Patient is feeling better and no longer feels like there is anything stuck in his throat. encouraged to bring him back to the ED with any new or worsening sx.
== END 2022-07-03 22:52 | disposition left against medical advice (07) ==
PROVIDERS: PCP Family Medicine
DX: J02.9 Acute pharyngitis, unspecified (principal)
CPT/HCPCS: 99199

== ENCOUNTER 2022-07-07 07:16 | Observation (INO) | payer MEDICARE, SELFPAY ==
[2022-07-07] VITALS (17 sets, daily range): BP systolic 140–173; BP diastolic 68–88; PULSE 70–79; RESP 18–26; TEMP 36.6; O2SAT 96–100; BMI 36.6
--- NOTE | ~2022-07-07 | XR_ITS ---
EXAMINATION: XR chest 2V DATE: 07/07/2022 08:58 INDICATION: Mid chest pain TECHNIQUE: AP and lateral views of the chest are obtained. COMPARISON: 02/01/2022 FINDINGS: There is chronic elevation of the left hemidiaphragm. A mild diffuse interstitial pattern i s present. There are left basilar airspace opacities. The cardiomediastinal silhouette is stable. No pleural effusion or pneumothorax. Changes of endoluminal aortic valve replacement are noted. IMPRESSION: 1. Mild diffuse interstitial pattern suggestive of mild pulmonary edema. 2. Left basilar airspace opacity, likely atelectasis related to elevation of the left hemidiaphragm. Reviewed, dictated and finalized at location A. F LABOURER IMPRESSION: 1. Mild diffuse interstitial pattern suggestive of mild pulmonary edema. 2. Left basilar airspace opacity, likely atelectasis related to elevation of th e left hemidiaphragm.
--- NOTE | ~2022-07-07 | US_ITS ---
EXAMINATION: US venous doppler [facility] DATE: 07/08/2022 10:53 INDICATION: Bilateral lower limb swelling TECHNIQUE: Velasco scale images without and with compression and Doppler images of the bilateral lower e xtremity veins were obtained. COMPARISON: 03/05/2022 FINDINGS: The right common femoral vein, profunda femoral vein, femoral vein, popliteal vein, peroneal trunk, p osterior tibial veins, and greater saphenous vein are patent. The left common femoral vein, profunda femoral vein, femoral vein, popliteal vein, peroneal trunk, po sterior tibial veins, and greater saphenous vein are patent. IMPRESSION: 1. Patent bilateral lower extremity veins. No evidence of deep venous thrombosis. Reviewed, dictated and finalized at location A. IAL LIBRARIAN IMPRESSION: 1. Patent bilateral lower extremity veins. No evidence of deep venous thrombosi s.
--- NOTE | 2022-07-07 07:20 | ECG_ITS ---
Measurements Intervals [place] Rate: 72 P: IA: 0 QRS: 264 QRSD: 168 T: 79 QT: 424 QTc: 467 Interpretive Statements ELECTRONIC VENTRICULAR PACEMAKER PROBABLE UNDERLYING ATRIAL FIBRILLATION COMPARED TO ECG 01/30/2022 17:44:49 NO SIGNIFICANT CHANGES Electronically Signed On 07-07-2022 8:44:48 [employer] by Lacey Sanchez M.D.
[2022-07-07 07:49] LABS: Basophils Percent Auto 0.5 % (0.2-1.2); Eosinophils Absolute Auto 0.3 K/mm3 (0-0.3); Eosinophils Percent Auto 4.2 % (0-4.4); Hematocrit 33.8 % (42.0-52.0); Hemoglobin 11.1 g/dL (14.0-18.0); Immature Granulocyte Absolute 0.03 K/mm3 (0.00-0.031); Immature Granulocyte Percent A 0.4 % (0-0.5); Lymphocytes Absolute Auto 0.54 K/mm3 (0.9-3.2); Lymphocytes Percent Auto 7.2 % (18.3-44.2); Mean Corpuscular HGB Conc 32.8 g/dl (32-36); Mean Corpuscular Hemoglobin 32.9 pg (26-34); Mean Corpuscular Volume 100.3 fl (80-100); Mean Platelet Volume 9.6 fl (7.4-10.4); Monocytes Absolute Auto 0.7 K/mm3 (0.1-0.6); Monocytes Percent Auto 8.6 % (2.6-8.5); Neutrophils Percent Auto 79.1 % (45.5-73.1); Platelet Count Result 134 k/mm3 (150-375); Red Blood Count 3.37 M/mm3 (4.6-6.20); Red Cell Distribution Width 14.3 % (11.5-14.5); White Blood Count 7.5 K/mm3 (4.5-10.0)
[2022-07-07 08:01] LABS: Alanine Aminotransferase 29 U/L (6-50); Albumin Level 4.1 g/dL (3.5-5.1); Alkaline Phosphatase 107 U/L (38-126); Anion Gap 9 mmol/L (8-16); Aspartate Amino Transferase 34 U/L (17-59); Blood Urea Nitrogen 26 mg/dL (9-20); Calcium 8.6 mg/dL (8.4-10.2); Carbon Dioxide 25 mmol/L (22-30); Chloride 102 mmol/L (98-107); Estimated CRCL calculation 46 ml/min; Estimated Glomerular Filt Rate 48; Glucose 111 mg/dL (65-110); Lipase 61 U/L (23-300); Sodium 136 mmol/L (137-145)
[2022-07-07 08:04] LABS: INR 1.3; Prothrombin Time 15.9 Seconds (11.1-14.7)
[2022-07-07 08:05] LABS: Partial Thromboplastin Time 33.3 SECONDS (22.3-36.8)
[2022-07-07 08:16] LABS: Troponin I 0.071 ng/mL (0.000-0.034)
--- NOTE | 2022-07-07 10:26 | ED.GENADULT ---
HPI - General Adult General Chief complaint: Chest Pain Stated complaint: chest pain Time Seen by Provider: 07/07/22 09:47 History of Present Illness HPI narrative: 86 y/o male presents to [facility] ER for chest pain. nonradiating Related Data Home Medications Medication Instructions Recorded Confirmed multivitamin 1 tablet PO DAILY 07/03/19 08/07/22 cholecalciferol (vitamin D3) 25 1,000 unit PO DAILY 08/12/19 08/07/22 mcg (1,000 unit) capsule ascorbic acid (vitamin C) 500 mg 500 mg PO DAILY 07/12/20 08/07/22 tablet calcium carbonate 600 mg-vitamin 1 cap PO DAILY 10/26/20 08/07/22 D3 10 mcg (400 unit) capsule aspirin 81 mg tablet,delayed 81 mg PO DAILY 11/02/20 08/07/22 release (Adult Low Dose Aspirin) tamsulosin 0.4 mg capsule 0.4 mg PO DAILY 01/30/22 08/07/22 ferrous sulfate 142 mg (45 mg 45 mg PO BID 02/21/22 08/07/22 iron) tablet,extended release (Slow Fe) hydroxychloroquine 200 mg tablet 200 mg PO DAILY 06/26/22 08/07/22 atorvastatin 20 mg tablet 20 mg PO HS 07/07/22 08/07/22 esomeprazole magnesium 40 mg 40 mg PO DAILY 07/07/22 08/07/22 capsule,delayed release finasteride 5 mg tablet 5 mg PO DAILY 07/07/22 08/07/22 amoxicillin 500 mg tablet 2,000 mg PO PRN PRN dental 08/07/22 08/07/22 appointments clopidogrel 75 mg tablet 75 mg PO DAILY 08/07/22 08/07/22 torsemide 20 mg tablet 20 mg PO BID 08/07/22 08/07/22 Allergies Allergy/AdvReac Type Severity Reaction Status Date / Time No Known Allergies Allergy Verified 08/07/22 10:58 Review of Systems Review of Systems: normal [facility] Past Medical History Medical History Abdominal aortic aneurysm Arthritis Basal cell carcinoma (2010) Left ear 2010. Left ear and chin 2014. Right cheek 2018. Back and behind right ear 2019. Benign prostatic hyperplasia Chronic anemia Chronic kidney disease, stage 3 Baseline creatinine between 1.4 and 1.70. Congestive heart failure Coronary artery disease With history of stents in 2007. Negative Lexiscan stress in 06/2016. Elevated troponin Essential hypertension Gastroesophageal reflux disease Generalized osteoarthritis of multiple sites Hearing loss Status post cochlear implant. History of basal cell cancer Excised from right ear, chin, and left ear. Hyperlipidemia Hypertension Iron deficiency anemia Memory loss Mixed hyperlipidemia Obstructive sleep apnea treated with BiPAP Osteoarthritis Paroxysmal atrial fibrillation History of cardioversion and cardiac ablation. Status post Watchman 06/2022. Rheumatoid arthritis Seronegative arthropathy of multiple sites Skin cancer Spinal stenosis Subclinical hypothyroidism Subdural hematoma With evacuation after a fall years ago. Type 2 diabetes mellitus with kidney complication, without long-term current use of insulin Vitamin D deficiency Surgical History Surgical History History of arthroplasty of left knee (2013) History of arthroplasty of right knee (2006) History of basal cell carcinoma excision History of cardiac radiofrequency ablation History of cardioversion History of cataract extraction Left eye 2009 Right eye 2016 History of cholecystectomy (2005) History of cochlear implant (2017) Re-implant 2020 History of hemorrhoidectomy (1981) History of inguinal hernia repair (1976) History of lumbosacral spine surgery (2013) Radiofrequency nerve ablation. History of permanent cardiac pacemaker placement (2018) History of repair of anterior cruciate ligament of right knee (1957) History of right hip replacement (2009) History of total left hip arthroplasty (2005) Presence of Watchman left atrial appendage closure device (06/2022) Status post evacuation of subdural hematoma (2008) Status post transcatheter aortic valve replacement (TAVR) using bioprosthesis (2019) Stented coronary artery (2007) Family History Family H
[2022-07-07 10:51] LABS: Troponin I 0.067 ng/mL (0.000-0.034)
--- NOTE | 2022-07-07 11:28 | ECHOL_ITS ---
Patient Info Name: Rob Britt Age: 86 years : 1935 Gender: Male Ht: 70 in Wt: 270 lbs BSA: 2.51 m2 HR: 71 bpm BP: 152 / 83 mmHg Heart Rhythm: Indeterminant Exam Date: 07/07/2022 12:39 PM Exam Location: [facility] Patient Status: Outpatient Admit Date: 07/07/2022 Staff Ordering Physician: Lacey Sanchez MD Clinical Consultant: Virgie Sanchez RDCS Attending Provider: Humphrey Jefferson MD Referring Physician: Daniel SEVERINO; Exam Type: CA echo limited Study Info Indications R07.9 - Chest pain, unspecified Limited two-dimensional transthoracic echocardiogram is performed. Summary 1. Limited study to evaluate for pericardial effusion. 2. There is trivial (physiologic) pericardial effusion. 3. The left ventricle is poorly visualized, EF likely > 50%, possible apical hypokinesis. 4. Left atrial chamber dimension is moderately enlarged. 5. Extremely technically difficult study; limited views. 6. Rhythm indeterminant. Left Ventricle Left ventricular chamber dimension is normal. Left ventricular systolic function is normal, estimated at Empty. There is no increased left ventricular wall thickness. Left ventricular septal wall motion is normal. The left ventricular diastolic function is normal. Right Ventricle Right ventricular chamber dimension is normal. Right ventricular systolic function is normal. Left Atria Left atrial chamber dimension is moderately enlarged. Right Atria Right atrial chamber dimension is normal. Aortic Valve The aortic valve is trileaflet. There is no aortic valve sclerosis. There is no aortic valve stenosis. There is no aortic valve regurgitation. Pulmonic Valve The pulmonic valve is normal. There is no pulmonic valve stenosis. There is no pulmonic regurgitation. Mitral Valve The mitral valve has normal leaflets. There is no mitral valve stenosis. There is no mitral valve regurgitation. The mitral valve annulus is moderately calcified. Tricuspid Valve The tricuspid valve leaflets are normal. There is no significant tricuspid valve stenosis. There is no tricuspid valve regurgitation. No pulmonary hypertension, estimated pulmonary arterial systolic pressure is Empty. Pericardium/Pleural The pericardium appears normal. There is trivial (physiologic) pericardial effusion. Inferior Vena Cava Normal inferior vena cava with >50% collapse upon inspiration consistent with Empty right atrial pressure, Empty. Aorta The aortic root size at the sinus of Valsalva is normal. The prox ascending aorta size is normal. Report Signatures
[2022-07-07 12:21] LABS: Influenza A QL RT-PCR Negative (Negative); Influenza B QL RT-PCR Negative (Negative); SARS-CoV-2 RNA PCR Negative
--- NOTE | 2022-07-07 14:21 | PC.NURSE ---
Report received at 1353 from the ED.
--- NOTE | 2022-07-07 14:22 | ADMGEN ---
This patient, Rob Britt, was admitted to IMU Room 202-01 at 1422. Patient/family oriented to hospital policies and general routines including ID bracelet, bed and alarms, visiting hours, pain management, procedures, bathroom and other care routines, personal items, smoking policy, room service/diet, and visiting hours. Information on how to activate the Rapid Response Team has been discussed. Patient/Family are encouraged to report perceived risks to care and to ask questions if they do not understand what they are told or what they should do.
[2022-07-07 15:05] LABS: Troponin I 0.072 ng/mL (0.000-0.034)
--- NOTE | 2022-07-07 17:45 | PM.IMHP ---
H&P: HPI History of Present Illness Date/Time: 07/07/22 17:45 Chief Complaint: Chest pain. Narrative: This is a pleasant 86-year-old male with multiple medical problems to include coronary artery disease with history of stents, atrial fibrillation on long-term anticoagulation, diet controlled diabetes mellitus, anemia of chronic disease, chronic kidney disease, and other comorbidities who presented to the emergency department for evaluation of chest pain. He is able to provide some history but suffers from short-term memory loss and his provides additional information, with the patient's permission. He had a Watchman left atrial appendage occluder placed on 07/03/2022 at [facility] and he has been doing well since that time. This morning he got up at about 04:00 to use the restroom and he sat to watch some television. At around 05:00 he woke his with complaints of midsternal chest pain and shortness of breath, reportedly worse with deep inspiration. He cannot really remember what the chest pain felt like this morning and at the time my evaluation he is not having any discomfort whatsoever. In the ED his initial troponin was elevated but has remained flat and is consistent with his chronic and mild troponin elevation. EKG showed a paced rhythm with probable underlying atrial fibrillation. He has since been admitted to the IMU for overnight monitoring and Cardiology consultation. Review of Systems Review of Systems: Twelve systems were reviewed but are limited due to his short-term memory loss. denies that he has had any recent illnesses. No fever or chills. He has not had a cough. No nausea, vomiting, or diarrhea. He has chronic lower extremity edema. No history of venous thromboembolism. Except as documented, all other systems were reviewed and are negative. [facility] Past Medical History Medical History (Updated 07/07/22 @ 22:41 by Alona Smith PA-C) Abdominal aortic aneurysm Arthritis Basal cell carcinoma (2010) Left ear 2010. Left ear and chin 2014. Right cheek 2018. Back and behind right ear 2019. Benign prostatic hyperplasia Chronic anemia Chronic kidney disease, stage 3 Baseline creatinine between 1.4 and 1.70. Congestive heart failure Coronary artery disease With history of stents in 2007. Negative Lexiscan stress in 06/2016. Elevated troponin Essential hypertension Gastroesophageal reflux disease Generalized osteoarthritis of multiple sites Hearing loss Status post cochlear implant. History of basal cell cancer Excised from right ear, chin, and left ear. Hyperlipidemia Hypertension Iron deficiency anemia Memory loss Mixed hyperlipidemia Obstructive sleep apnea treated with BiPAP Osteoarthritis Paroxysmal atrial fibrillation History of cardioversion and cardiac ablation. Status post Watchman 06/2022. Rheumatoid arthritis Seronegative arthropathy of multiple sites Skin cancer Spinal stenosis Subclinical hypothyroidism Subdural hematoma With evacuation after a fall years ago. Type 2 diabetes mellitus with kidney complication, without long-term current use of insulin Vitamin D deficiency Surgical History Surgical History History of arthroplasty of left knee (2013) History of arthroplasty of right knee (2006) History of basal cell carcinoma excision History of cardiac radiofrequency ablation History of cardioversion History of cataract extraction Left eye 2009 Right eye 2016 History of cholecystectomy (2005) History of cochlear implant (2017) Re-implant 2020 History of hemorrhoidectomy (1981) History of inguinal hernia repair (1976) History of lumbosacral spine surgery (2013) Radiofrequency nerve ablation. History of permanent cardiac pacemaker placement (2018) History of repair of anterior cruciate ligament of right knee (1957) History of right hip replacement (2009) History of total left hip arthroplasty (2005) P
[2022-07-07] MEDS: ATORVASTATIN 20 MG TABLET PO (23:09)
[2022-07-08] VITALS (7 sets, daily range): BP systolic 119–158; BP diastolic 69–84; PULSE 70–83; RESP 14–20; TEMP 35.8–36.5; O2SAT 98–100
[2022-07-08 04:45] LABS: Hematocrit 35.2 % (42.0-52.0); Hemoglobin 11.7 g/dL (14.0-18.0); Mean Corpuscular HGB Conc 33.2 g/dl (32-36); Mean Corpuscular Hemoglobin 32.4 pg (26-34); Mean Corpuscular Volume 97.5 fl (80-100); Mean Platelet Volume 10.1 fl (7.4-10.4); Platelet Count Result 168 k/mm3 (150-375); Red Blood Count 3.61 M/mm3 (4.6-6.20); Red Cell Distribution Width 14.6 % (11.5-14.5); White Blood Count 14.3 K/mm3 (4.5-10.0)
[2022-07-08 04:56] LABS: Anion Gap 11 mmol/L (8-16); Blood Urea Nitrogen 30 mg/dL (9-20); Carbon Dioxide 24 mmol/L (22-30); Chloride 102 mmol/L (98-107); Estimated CRCL calculation 43 ml/min; Estimated Glomerular Filt Rate 45; Glucose 104 mg/dL (65-110); Magnesium 2.2 mg/dL (1.6-2.3); Potassium 4.2 mmol/L (3.4-5.0); Sodium 137 mmol/L (137-145)
[2022-07-08 05:28] LABS: Thyroid Stimulating Hormone Reflex 0.602 uIU/mL (0.465-4.68)
[2022-07-08] MEDS: FUROSEMIDE 40 MG TABLET PO (08:50)
[2022-07-08] MEDS: TAMSULOSIN HCL 0.4 MG CAPSULE PO (08:50)
[2022-07-08] MEDS: MULTIVITAMINS THERAPEUTIC TAB (*BKC) 1 TABLET PO (08:50)
[2022-07-08] MEDS: ASPIRIN 81 MG ENTERIC TABLET PO (08:50)
[2022-07-08] MEDS: ASCORBIC ACID 500 MG TABLET PO (08:50)
[2022-07-08] MEDS: PANTOPRAZOLE 40 MG TABLET PO (08:50)
[2022-07-08] MEDS: CHOLECALCIFEROL 1,000 UNITS TABLET 1000 UNITS PO (08:50)
[2022-07-08] MEDS: FERROUS SULFATE DRIED 142 MG TABCR PO (08:50)
[2022-07-08] MEDS: HYDROXYCHLOROQUINE SULFATE 200 MG TABLET PO (08:50)
[2022-07-08] MEDS: FINASTERIDE 5 MG TABLET PO (08:50)
[2022-07-08] MEDS: ramipriL 5 MG CAPSULE 10 MG PO (08:51)
--- NOTE | 2022-07-08 11:09 | PM.CNCAR ---
Assessment and Plan Assessment and plan (1) Chest pain: Code(s): R07.9 - Chest pain, unspecified Status: Acute Assessment and Plan: Chest pain is shortness of breath a few days after the patient's left atrial appendage occlusion was placed. Evaluated for possible perforation but there was no pericardial effusion noted on his echo. Slightly elevated Troponins are flat. Does have known coronary disease and questionable new apical hypokinesis by a very technically difficult Echo study, but his Left anterior descending was patent when checked in 2019 prior to his TAVR. Wonder if any of his sx were related to the large gas bubble under his left hemidiapragm. Or perhaps a transient mild pericarditis 2nd to the procedure? The patient is feeling well and the problem seems to be resolved. Appears stable for discharge today. Advised pt/ to call if any further problems. (2) Acute on chronic combined systolic and diastolic CHF (congestive heart failure): Code(s): I50.43 - Acute on chronic combined systolic (congestive) and diastolic (congestive) heart failure Status: Acute Assessment and Plan: Chest x-ray suggested he may have some mild acute on chronic systolic and diastolic CHF. REc increase furosemide to 60 mg BID for a week, than back to 40 mg BID. (3) Paroxysmal atrial fibrillation: Code(s): I48.0 - Paroxysmal atrial fibrillation Status: Acute Assessment and Plan: History of paroxysmal? Persistent? Atrial fibrillation status post AV node ablation and pacemaker. Had a micro pacemaker placed last week by Dr. Snyder at [facility], [place], operated by [facility], which is visible on his CXR. (4) Coronary artery disease: Code(s): I25.10 - Atherosclerotic heart disease of [place] coronary artery without angina pectoris Status: Acute Assessment and Plan: History of CAD, appears stable. History of Present Illness History of Present Illness Consult date/time: 07/08/22 11:09 Reason For Visit: chest pain, elevated troponin levels Narrative: Rob Medina is an 86 y.o. male whom I ws asked to see by Dr. Grajeda for my advice and opinion regarding his chest pain, in consultation. He has a history of CAD followed by Dr. Alvarez. He has had atrial fibrillation atrial flutter with AV node ablation and implantation of a micro pacemaker. Cardiac catheterization in April 2020 showed 60% stenosis of the proximal RCA, calcified left coronary artery without stenosis, EF 40% and aortic stenosis. He had a TAVR. He had a left atrial appendage occluder implanted in [facility] 07/03/2022. The patient was watching TV early on the morning of 07/07/2022 and awoke his complaining of chest discomfort and shortness of breath. Apparently the discomfort was somewhat worse with inspiration. This waxed and waned all 3 yesterday but has resolved. The patient does have some chronic edema. No coughing. No GI symptoms. The patient has a very poor memory with mild dementia and his and EMR provides much of the history. Review of Systems Constitutional: Constitutional: Denies fever(s) Eyes: Eyes: Reports no additional eye complaints ENT: Denies Normal hearing present (Has a cochlear implant ) and Denies epistaxis Cardiovascular: Cardiovascular: Reports chest pain, Reports pedal edema, Denies lightheadedness and Reports dyspnea Comments: Chronic edema Respiratory: Respiratory: Denies chest congestion and Reports dyspnea (On admission has shortness of breath) Gastrointestinal: Gastrointestinal: Denies abdominal pain and Denies hematochezia Genitourinary: Genitourinary: Reports no additional male genitourinary complaints Musculoskeletal: Musculoskeletal: Reports no additional musculoskeletal complaints Integumentary/Breasts: Skin/Breast: Reports system reviewed and no additional complaints, except as docu Neurologic: Reports system reviewed and no additional complai
--- NOTE | 2022-07-08 13:30 | PM.DS ---
DS: Admitting Diagnosis Discharge Date July 08, 2022 Admitting Diagnosis chest pain DS: Discharge Diagnosis Discharge Diagnosis (1) Chest pain: Code(s): R07.9 - Chest pain, unspecified Status: Acute (2) Elevated troponin: Code(s): R79.89 - Other specified abnormal findings of blood chemistry Status: Acute (3) Chronic kidney disease, stage 3: Qualifiers: Chronic kidney disease stage 3 subtype: unspecified whether 3a or 3b Qualified Code(s): N18.30 - Chronic kidney disease, stage 3 unspecified Code(s): N18.3 - Chronic kidney disease, stage 3 (moderate) Status: Acute (4) Chronic anemia: Code(s): D64.9 - Anemia, unspecified Status: Acute (5) Hypertension: Code(s): I10 - Essential (primary) hypertension Status: Acute (6) Paroxysmal atrial fibrillation: Code(s): I48.0 - Paroxysmal atrial fibrillation Status: Acute (7) Obstructive sleep apnea treated with BiPAP: Code(s): G47.33 - Obstructive sleep apnea (adult) (pediatric) Status: Acute DS: Summary Hospital Course Hospital Course: 86-year-old gentleman came in with chest pain. This was short lived at home. Workup was unrevealing he did have some mild elevation troponin but no rise and fall. He does have some chronic cardiac issues. Cardiology was consulted did not recommend any further ischemic workup per catheterization. They did recommend increasing his Lasix over the next week or so. they felt possibly he was a bit volume overloaded. Otherwise patient is not having any significant shortness of breath and no more chest pain he can be discharged home with slight change in Lasix over the next week. Time Spent with Patient Time attestation: Total time spent providing and/or coordinating discharge services: Exam Const: Other: Well-developed elderly male sitting in a chair at the side of the bed watching college football. Weight: 119.1 kilogram. BMI: 36.6. HENMT: Other: Normocephalic, atraumatic. Nares pain bilaterally. Oral mucosa moist. He is quite hard of hearing. Eyes: Other: Pupils are reactive. Extraocular motions intact. Sclerae anicteric. Neck: Other: Supple. No JVD or obvious carotid bruits. Chest: Other: No tenderness to palpation over the chest wall. Resp: Other: Respirations are nonlabored. Fine crackles at the bases otherwise clear to auscultation. Cardio: Other: Regular rate and rhythm. Murmur at the upper sternal border. GI: Other: Abdomen is soft, protuberant, nontender, nondistended with positive bowel sounds. Skin: Other: Warm and dry. Chronic hyperpigmentation changes of the lower legs with scattered bruising on the extremities. Neuro: Other: Alert. Cranial nerves 2-12 grossly intact. No gross focal deficits to casual conversation. Extrem: Other: No cyanosis or clubbing. He has pitting and nonpitting bilateral lower extremity edema. No palpable knots or cords. Negative Alicja sign bilaterally. Psych: Other: Pleasant and cooperative with appropriate mood and affect. Forgetful, suffers from short-term memory loss. DS: Data Data Completed and Pending Labs on day of discharge: Labs from last 24 hours 07/08/22 07/08/22 07/08/22 04:20 04:20 04:20 WBC 14.3 H RBC 3.61 L Hgb 11.7 L Hct 35.2 L MCV 97.5 MCH 32.4 MCHC 33.2 RDW 14.6 H Plt Count 168 MPV 10.1 Sodium 137 Potassium 4.2 Chloride 102 Carbon Dioxide 24 Anion Gap 11 BUN 30 H Creatinine 1.50 H Estim Creat Clear Calc 43 Estimated GFR 45 L Glucose 104 Calcium 9.0 Magnesium 2.2 Troponin I TSH (Reflex) 0.602 07/07/22 14:21 WBC RBC Hgb Hct MCV MCH MCHC RDW Plt Count MPV Sodium Potassium Chloride Carbon Dioxide Anion Gap BUN Creatinine Estim Creat Clear Calc Estimated GFR Glucose Calcium Magnesium Troponin I 0.072 H* TSH (R
--- NOTE | 2022-07-08 14:48 | PC.NURSE ---
Reviewed discharge paper work with patient and patient's . All questions were answered. Peripheral IV access removed. Patient and patient belongings transferred via wheelchair. Discharge disposition: home
== END 2022-07-08 14:35 | disposition home or self-care (01) ==
LOC: ANHED 11:47 → ANHIMU 13:54
PROVIDERS: Physician Assistant; Admitting Provider Internal Medicine; Emergency Provider Emergency Medicine; PCP Family Medicine; Visit Provider Chiropractor
DX: R07.9 Chest pain, unspecified (principal); R77.8 Other specified abnormalities of plasma proteins; I13.0 Hypertensive heart and chronic kidney disease with heart failure and stage 1 through stage 4 chronic kidney disease, or unspecified chronic kidney disease; N18.30 Chronic kidney disease, stage 3 unspecified; E11.22 Type 2 diabetes mellitus with diabetic chronic kidney disease; I50.9 Heart failure, unspecified; D63.1 Anemia in chronic kidney disease; I48.0 Paroxysmal atrial fibrillation; G47.33 Obstructive sleep apnea (adult) (pediatric); I71.40 Abdominal aortic aneurysm, without rupture, unspecified; N40.0 Benign prostatic hyperplasia without lower urinary tract symptoms; K21.9 Gastro-esophageal reflux disease without esophagitis; M15.9 Polyosteoarthritis, unspecified; R41.3 Other amnesia; M06.9 Rheumatoid arthritis, unspecified; D50.9 Iron deficiency anemia, unspecified; E78.5 Hyperlipidemia, unspecified; Z95.0 Presence of cardiac pacemaker; I25.10 Atherosclerotic heart disease of native coronary artery without angina pectoris; R91.8 Other nonspecific abnormal finding of lung field; Z95.5 Presence of coronary angioplasty implant and graft; Z96.21 Cochlear implant status; Z95.2 Presence of prosthetic heart valve; Z95.818 Presence of other cardiac implants and grafts; Z87.891 Personal history of nicotine dependence; Z79.82 Long term (current) use of aspirin; Z79.899 Other long term (current) drug therapy; Z82.49 Family history of ischemic heart disease and other diseases of the circulatory system
CPT/HCPCS: 36415; 71046; 80048; 80053; 83690; 83735; 84443; 84484; 85025; 85027; 85610; 85730; 87636; 93005; 93308; 93970; 99285; A9270; G0378

== ENCOUNTER 2022-08-21 07:30 | Outpatient (RCR) | payer MEDICARE, SELFPAY ==
[2022-08-07 10:27] VITALS: BMI 38.0
== END 2022-10-22 09:50 | disposition home or self-care (01) ==
LOC: ANHWOC 07:30
PROVIDERS: PCP Family Medicine; Visit Provider Specialist
DX: I87.2 Venous insufficiency (chronic) (peripheral) (principal)
CPT/HCPCS: 99212; 99213; G0463

== ENCOUNTER → 2023-03-22 09:15 | Outpatient (CLI) | payer MEDICARE, SELFPAY ==
--- NOTE | ~2023-03-22 | US_ITS ---
EXAMINATION: US aorta DATE: 03/22/2023 09:36 INDICATION: Abdominal aortic aneurysm TECHNIQUE: Grayscale, color Doppler, and pulsed Doppler images of the aorta and common iliac arteries were obtained. COMPARISON: None. FINDINGS: Visualization of the abdominal aorta is suboptimal due to patient body habitus. The proximal aorta me asures 2.9 cm. The mid aorta measures 2.6 cm. The distal aorta measures at least 3.6 cm and potential ly up to 4.7 cm in AP diameter. The right common iliac artery measures 1.6 cm. The left common iliac artery measures 1.3 cm. IMPRESSION: 1. Infrarenal abdominal aortic aneurysm measuring at least 3.6 cm but potentially up to 4.7 cm in max imal AP diameter. Assessment is limited by patient body habitus. Reviewed, dictated and finalized at location A. IMPRESSION: 1. Infrarenal abdominal aortic aneurysm measuring at least 3.6 cm but potential ly up to 4.7 cm in maximal AP diameter. Assessment is limited by patient body h abitus.
== END ==
PROVIDERS: PCP Nurse Practitioner; Visit Provider Nurse Practitioner
DX: I71.40 Abdominal aortic aneurysm, without rupture, unspecified (principal)
CPT/HCPCS: 76775

== ENCOUNTER 2023-04-23 10:48 | Outpatient (CLI) | payer MEDICARE, SELFPAY ==
[2023-04-23 11:02] LABS: Basophils Percent Auto 0.7 % (0.2-1.2); Eosinophils Absolute Auto 0.2 K/mm3 (0-0.3); Eosinophils Percent Auto 3.4 % (0-4.4); Hematocrit 33.6 % (42.0-52.0); Hemoglobin 11.2 g/dL (14.0-18.0); Immature Granulocyte Absolute 0.03 K/mm3 (0.00-0.031); Immature Granulocyte Percent A 0.5 % (0-0.5); Lymphocytes Percent Auto 10.3 % (18.3-44.2); Mean Corpuscular HGB Conc 33.3 g/dl (32-36); Mean Corpuscular Hemoglobin 33.7 pg (26-34); Mean Corpuscular Volume 101.2 fl (80-100); Mean Platelet Volume 9.3 fl (7.4-10.4); Monocytes Absolute Auto 0.6 K/mm3 (0.1-0.6); Monocytes Percent Auto 10.4 % (2.6-8.5); Neutrophils Absolute Auto 4.4 K/mm3 (1.3-6.7); Neutrophils Percent Auto 74.7 % (45.5-73.1); Platelet Count Result 114 k/mm3 (150-375); Red Blood Count 3.32 M/mm3 (4.6-6.20); Red Cell Distribution Width 13.8 % (11.5-14.5); White Blood Count 5.8 K/mm3 (4.5-10.0)
[2023-04-23 12:05] LABS: Anion Gap 11 mmol/L (8-16); Blood Urea Nitrogen 52 mg/dL (9-20); Calcium 8.9 mg/dL (8.4-10.2); Carbon Dioxide 25 mmol/L (22-30); Chloride 95 mmol/L (98-107); Estimated Glomerular Filt Rate 32; Glucose 111 mg/dL (65-110); Sodium 131 mmol/L (137-145)
[2023-04-23 12:41] LABS: Iron 75 ug/dL (49-181)
[2023-04-23 12:51] LABS: Percent Iron Saturation 21 % (20-50)
== END 2023-04-23 10:49 | disposition home or self-care (01) ==
LOC: ANHLAB 10:50
PROVIDERS: PCP Family Medicine; Visit Provider Internal Medicine Hematology & Oncology
DX: D64.9 Anemia, unspecified (principal)
CPT/HCPCS: 36415; 80048; 82728; 83540; 83550; 85025

== ENCOUNTER 2023-05-01 16:25 | Emergency (ER) | payer MEDICARE, SELFPAY ==
--- NOTE | 2023-05-01 16:36 | ED.EYEPROB ---
HPI - Eye Problem General Chief complaint: Eye Problems Stated complaint: Right Eye Irritation Time Seen by Provider: 05/01/23 16:40 Source: patient, family, RN notes reviewed and old records reviewed Mode of arrival: ambulatory Limitations: no limitations History of Present Illness HPI Narrative: 87 year old male presents to express care accompanied by with complaints of right eye watery, puffy with feeling of something in his eye. reports that patient is undergoing some radiation to tissue under right eye this being his 4th week for skin cancer. reports that he did have treatment today at 1300 and they use a protective shield over his eye when he has the treatments. reports that they called his manager utilization management who she stated told them he could have an eyelash in his eye or could be swelling from treatment and to go get it looked at. MD chief complaint: eye redness and other (watery, foreign body feeling in his right eye) Onset (ago): day(s) (today about hour after treatment) Eye Symptoms: redness, foreign body sensation and other (watering) Severity scale (1-10): 4 Treatments Prior to Arrival: none Related Data Home Medications Medication Instructions Recorded Confirmed multivitamin 1 tablet PO DAILY 07/03/19 05/01/23 cholecalciferol (vitamin D3) 25 1,000 unit PO DAILY 08/12/19 05/01/23 mcg (1,000 unit) capsule ascorbic acid (vitamin C) 500 mg 500 mg PO DAILY 07/12/20 05/01/23 tablet calcium carbonate 600 mg-vitamin 1 cap PO DAILY 10/26/20 05/01/23 D3 10 mcg (400 unit) capsule aspirin 81 mg tablet,delayed 81 mg PO DAILY 11/02/20 05/01/23 release (Adult Low Dose Aspirin) ferrous sulfate 142 mg (45 mg 45 mg PO BID 02/21/22 05/01/23 iron) tablet,extended release (Slow Fe) torsemide 20 mg tablet 20 mg PO BID 08/07/22 05/01/23 potassium chloride 20 mEq oral 20 meq PO DAILY 10/30/22 05/01/23 packet (Klor-Con) Allergies Allergy/AdvReac Type Severity Reaction Status Date / Time clopidogrel [From Plavix] Allergy Itching Verified 05/01/23 16:43 Review of Systems Review of Systems: CONSTITUTIONAL: Denies fever, chills, or sweats. EYES: Denies visual changes. Reports redness,, irritation,watering foreign body sensation to right eye ENT: Denies rhinorrhea, congestion, sore throat, or otalgia. CARDIOVASCULAR: Denies chest pain, palpitations, or edema. RESPIRATORY: Denies cough or dyspnea. SKIN: Denies rash or itching. NEUROLOGIC: Denies headache All systems reviewed & are unremarkable except as noted in HPI and below PMFSH Past Medical History Medical History Abdominal aortic aneurysm Arthritis Basal cell carcinoma (2010) Left ear 2010. Left ear and chin 2014. Right cheek 2018. Back and behind right ear 2019. Benign prostatic hyperplasia Chronic anemia Chronic kidney disease, stage 3 Baseline creatinine between 1.4 and 1.70. Congestive heart failure Coronary artery disease With history of stents in 2007. Negative Lexiscan stress in 06/2016. Elevated troponin Essential hypertension Gastroesophageal reflux disease Generalized osteoarthritis of multiple sites Hearing loss Status post cochlear implant. History of basal cell cancer Excised from right ear, chin, and left ear. Hyperlipidemia Hypertension Iron deficiency anemia Memory loss Mixed hyperlipidemia Obstructive sleep apnea treated with BiPAP Osteoarthritis Paroxysmal atrial fibrillation History of cardioversion and cardiac ablation. Status post Watchman 06/2022. Rheumatoid arthritis Seronegative arthropathy of multiple sites Skin cancer Spinal stenosis Subclinical hypothyroidism Subdural hematoma With evacuation after a fall years ago. Type 2 diabetes mellitus with kidney complication, without long-term current use of insulin Vitamin D deficiency Surgical History Surgical History History of a
[2023-05-01 16:38] VITALS: BP 155/68; PULSE 101; RESP 27; TEMP 36.7; O2SAT 100
== END 2023-05-01 17:02 | disposition home or self-care (01) ==
PROVIDERS: Emergency Provider Registered Nurse; PCP Family Medicine
DX: S05.01XA Injury of conjunctiva and corneal abrasion without foreign body, right eye, initial encounter (principal); X58.XXXA Exposure to other specified factors, initial encounter; C44.90 Unspecified malignant neoplasm of skin, unspecified; M19.90 Unspecified osteoarthritis, unspecified site; N40.0 Benign prostatic hyperplasia without lower urinary tract symptoms; I13.0 Hypertensive heart and chronic kidney disease with heart failure and stage 1 through stage 4 chronic kidney disease, or unspecified chronic kidney disease; E11.22 Type 2 diabetes mellitus with diabetic chronic kidney disease; N18.30 Chronic kidney disease, stage 3 unspecified; I50.9 Heart failure, unspecified; I25.10 Atherosclerotic heart disease of native coronary artery without angina pectoris; Z95.5 Presence of coronary angioplasty implant and graft; K21.9 Gastro-esophageal reflux disease without esophagitis; E78.2 Mixed hyperlipidemia; M06.9 Rheumatoid arthritis, unspecified; I48.0 Paroxysmal atrial fibrillation; G47.33 Obstructive sleep apnea (adult) (pediatric); E55.9 Vitamin D deficiency, unspecified; D50.9 Iron deficiency anemia, unspecified; Z85.828 Personal history of other malignant neoplasm of skin; Z95.0 Presence of cardiac pacemaker; Z79.82 Long term (current) use of aspirin
CPT/HCPCS: 99213; A9270; G0463

== ENCOUNTER 2023-10-04 10:32 | Emergency (ER) | payer MEDICARE, SELFPAY ==
[2023-10-04 10:42] VITALS: BP 98/55; PULSE 90; RESP 16; TEMP 36.2; O2SAT 99
--- NOTE | 2023-10-04 10:51 | ED.GENADULT ---
HPI - General Adult General Chief complaint: Extremity Problem,Nontraumatic Stated complaint: Left Leg Swelling Time Seen by Provider: 10/04/23 10:41 Source: patient, RN notes reviewed and old records reviewed Mode of arrival: ambulatory Limitations: no limitations History of Present Illness HPI narrative: Patient presents today complaining of swelling and mild redness to the left lateral calf that was noted this morning. Patient denies pain, numbness or tingling in the leg or foot. Patient does have trouble with chronic lower leg and foot edema at baseline. Review of his chart shows recent 3+ edema bilaterally in his lower legs and feet. Related Data Home Medications Medication Instructions Recorded Confirmed multivitamin 1 tablet PO DAILY 07/03/19 10/04/23 cholecalciferol (vitamin D3) 25 1,000 unit PO DAILY 08/12/19 10/04/23 mcg (1,000 unit) capsule ascorbic acid (vitamin C) 500 mg 500 mg PO DAILY 07/12/20 10/04/23 tablet calcium carbonate 600 mg-vitamin 1 cap PO DAILY 10/26/20 10/04/23 D3 10 mcg (400 unit) capsule aspirin 81 mg tablet,delayed 81 mg PO DAILY 11/02/20 10/04/23 release (Adult Low Dose Aspirin) ferrous sulfate 142 mg (45 mg 45 mg PO BID 02/21/22 10/04/23 iron) tablet,extended release (Slow Fe) torsemide 20 mg tablet 20 mg PO BID 08/07/22 10/04/23 potassium chloride 20 mEq oral 20 meq PO DAILY 10/30/22 10/04/23 packet (Klor-Con) Allergies Allergy/AdvReac Type Severity Reaction Status Date / Time clopidogrel [From Plavix] Allergy Itching Verified 10/04/23 10:39 Review of Systems Review of Systems: CONSTITUTIONAL: Denies body aches, fever, chills, or sweats. EYES: Denies visual changes, redness, or discharge. ENT: Denies rhinorrhea, congestion, sore throat, or otalgia. CARDIOVASCULAR: Denies chest pain, palpitations, or edema. RESPIRATORY: Denies cough or dyspnea. GASTROINTESTINAL: Denies abdominal pain, nausea, vomiting, or diarrhea. GENITOURINARY: Denies dysuria or hematuria. SKIN: Denies rash, itching, or wounds. MUSCULOSKELETAL: Denies back pain, joint pain, or myalgia.+ left lower leg swelling NEUROLOGIC: Denies headache, numbness, tingling, or weakness. PSYCH: Denies depression or anxiety. [facility] Past Medical History Medical History Abdominal aortic aneurysm Arthritis Basal cell carcinoma (2010) Left ear 2010. Left ear and chin 2014. Right cheek 2018. Back and behind right ear 2019. Benign prostatic hyperplasia Chronic anemia Chronic kidney disease, stage 3 Baseline creatinine between 1.4 and 1.70. Congestive heart failure Coronary artery disease With history of stents in 2007. Negative Lexiscan stress in 06/2016. Elevated troponin Essential hypertension Gastroesophageal reflux disease Generalized osteoarthritis of multiple sites Hearing loss Status post cochlear implant. History of basal cell cancer Excised from right ear, chin, and left ear. Hyperlipidemia Hypertension Iron deficiency anemia Memory loss Mixed hyperlipidemia Obstructive sleep apnea treated with BiPAP Osteoarthritis Paroxysmal atrial fibrillation History of cardioversion and cardiac ablation. Status post Watchman 06/2022. Rheumatoid arthritis Seronegative arthropathy of multiple sites Skin cancer Spinal stenosis Subclinical hypothyroidism Subdural hematoma With evacuation after a fall years ago. Type 2 diabetes mellitus with kidney complication, without long-term current use of insulin Vitamin D deficiency Surgical History Surgical History History of arthroplasty of left knee (2013) History of arthroplasty of right knee (2006) History of basal cell carcinoma excision History of cardiac radiofrequency ablation History of cardioversion History of cataract extraction Left eye 2010 Right eye 2016 History of cholecystectomy (2005) History of cochlear
== END 2023-10-04 11:02 | disposition home or self-care (01) ==
PROVIDERS: Emergency Provider Nurse Practitioner; PCP Family Medicine
DX: L03.116 Cellulitis of left lower limb (principal); I13.0 Hypertensive heart and chronic kidney disease with heart failure and stage 1 through stage 4 chronic kidney disease, or unspecified chronic kidney disease; I50.9 Heart failure, unspecified; E11.22 Type 2 diabetes mellitus with diabetic chronic kidney disease; N18.30 Chronic kidney disease, stage 3 unspecified; E78.2 Mixed hyperlipidemia; Z79.899 Other long term (current) drug therapy; Z85.828 Personal history of other malignant neoplasm of skin; Z87.891 Personal history of nicotine dependence
CPT/HCPCS: 99213; G0463

== ENCOUNTER 2023-11-01 13:43 | Outpatient (CLI) | payer MEDICARE, SELFPAY ==
[2023-11-01 14:01] LABS: Basophils Percent Auto 0.6 % (0.2-1.2); Eosinophils Absolute Auto 0.2 K/mm3 (0-0.3); Eosinophils Percent Auto 3.8 % (0-4.4); Hematocrit 34.4 % (42.0-52.0); Hemoglobin 11.4 g/dL (14.0-18.0); Immature Granulocyte Absolute 0.02 K/mm3 (0.00-0.031); Immature Granulocyte Percent A 0.3 % (0-0.5); Lymphocytes Absolute Auto 0.71 K/mm3 (0.9-3.2); Lymphocytes Percent Auto 11.2 % (18.3-44.2); Mean Corpuscular HGB Conc 33.1 g/dl (32-36); Mean Corpuscular Hemoglobin 34.2 pg (26-34); Mean Corpuscular Volume 103.3 fl (80-100); Mean Platelet Volume 9.7 fl (7.4-10.4); Monocytes Absolute Auto 0.6 K/mm3 (0.1-0.6); Monocytes Percent Auto 9.8 % (2.6-8.5); Neutrophils Absolute Auto 4.7 K/mm3 (1.3-6.7); Neutrophils Percent Auto 74.3 % (45.5-73.1); Platelet Count Result 120 k/mm3 (150-375); Red Blood Count 3.33 M/mm3 (4.6-6.20); Red Cell Distribution Width 13.7 % (11.5-14.5); White Blood Count 6.3 K/mm3 (4.5-10.0)
[2023-11-01 16:18] LABS: Iron 82 ug/dL (49-181)
[2023-11-01 16:20] LABS: Anion Gap 10 mmol/L (4-12); Blood Urea Nitrogen 59 mg/dL (9-20); Calcium 9.4 mg/dL (8.4-10.2); Carbon Dioxide 28 mmol/L (22-30); Chloride 100 mmol/L (98-107); Estimated Glomerular Filt Rate 29; Glucose 126 mg/dL (65-110); Potassium 4.1 mmol/L (3.4-5.0); Sodium 138 mmol/L (137-145)
[2023-11-01 16:28] LABS: Percent Iron Saturation 24 % (20-50)
[2023-11-01 17:26] LABS: Folic Acid 16.9 ng/mL (2.76->20)
== END 2023-11-01 13:44 | disposition home or self-care (01) ==
LOC: ANHLAB 13:45
PROVIDERS: PCP Family Medicine; Visit Provider Internal Medicine Hematology & Oncology
DX: D64.9 Anemia, unspecified (principal)
CPT/HCPCS: 36415; 80048; 82607; 82728; 82746; 83540; 83550; 85025

== ENCOUNTER → 2024-02-03 11:27 | Outpatient (REF) | payer MEDICARE, SELFPAY | LOC: ANHLAB 11:27 | PROVIDERS: PCP Family Medicine; Visit Provider Plastic Surgery | DX: D03.59 Melanoma in situ of other part of trunk (principal) | CPT/HCPCS: 88305 ==

== ENCOUNTER 2024-02-09 16:46 | Inpatient (IN) | payer MEDICARE, SELFPAY ==
[2024-02-09] VITALS (12 sets, daily range): BP systolic 88–114; BP diastolic 42–62; PULSE 74–106; RESP 14–21; TEMP 36.4–37; O2SAT 94–100
--- NOTE | ~2024-02-09 | XR_ITS ---
XR chest 1V portable Ordering provider: Jasmin Barry DO History: 88 years Male with . Orthopnea, lower extremity swelling . Comparison: None. FINDINGS: MEDIASTINUM: The cardiac silhouette is not enlarged. Aortic valve prosthesis is noted. Elevation of the left hemidiaphragm. Congestive wally. LUNGS: No effusion or pneumothorax. Minimal atelectatic changes in the lung bases. OTHER: Degenerative changes of the spine. No free air under the diaphragm. IMPRESSION: Bilateral basal atelectatic changes. Early pneumonia cannot be excluded. Clinical correlation advised . Reviewed, dictated and finalized at location A. IMPRESSION: Bilateral basal atelectatic changes. Early pneumonia cannot be excluded. Clinic al correlation advised.
--- NOTE | ~2024-02-09 | XR_ITS ---
EXAMINATION: XR chest 1V portable DATE: 02/13/2024 09:01 INDICATION: Concern for pneumonia TECHNIQUE: frontal view of the chest was obtained. COMPARISON: Chest radiograph dated 02/10/2024 and 07/07/2022 FINDINGS: Mild reticular opacities at the right lung base and likely compressive atelectasis along the elevated left hemidiaphragm, all unchanged since the prior radiographs. Calcified nodule at the medial right lung base consistent with old granulomatous disease. No new airspace opacities, pulmonary edema, pleu ral effusion or pneumothorax. The cardiomediastinal silhouette is within normal limits for AP techniq ue. Dense mitral annular calcification. Aortic valve repair. Left pectoral implantable cardiac monito r. IMPRESSION: 1. Chronic elevation the left hemidiaphragm and unchanged opacities along the bilateral lung bases an d favor atelectasis over pneumonia. Reviewed, dictated and finalized at location A. IMPRESSION: 1. Chronic elevation the left hemidiaphragm and unchanged opacities along the b ilateral lung bases and favor atelectasis over pneumonia.
--- NOTE | ~2024-02-09 | US_ITS ---
US renal BI 02/10/2024 11:19 Procedure: Realtime transabdominal ultrasound of the kidneys and bladder. Indication: Acute renal insufficiency Comparison: 11/17/2020 Findings: Renal echotexture is normal bilaterally without hydronephrosis, contour deforming mass or r enal calculus. The right kidney measures 12.7 cm and left kidney measures 11.7 cm. There is a left re nal cyst measuring 1.5 cm. Bladder within normal limits. Impression: 1: Left renal cyst measuring 1.5 cm. Reviewed, dictated and finalized at location B. Impression: 1: Left renal cyst measuring 1.5 cm.
--- NOTE | 2024-02-09 17:05 | ED.GENADULT ---
HPI - General Adult General Chief complaint: Recheck/Abnormal Lab/Rx Stated complaint: sent by PCP for dehydration Time Seen by Provider: 02/09/24 16:57 History of Present Illness HPI narrative: 88-year-old male presents emergency department for evaluation for worsening outpatient kidney function. Patient did have some medications that were changed outpatient by Cardiology and patient's embedded nurse noticed that the patient's kidney function was worsening. After further medication changes patient's kidney function continues to worsen. Patient is also had an episode diarrhea. Nephrology called and said they were referring the patient to the hospital for admission for further evaluation. Related Data Home Medications Medication Instructions Recorded Confirmed multivitamin 1 tablet PO DAILY 07/03/19 02/09/24 cholecalciferol (vitamin D3) 25 1,000 unit PO DAILY 08/12/19 02/09/24 mcg (1,000 unit) capsule ascorbic acid (vitamin C) 500 mg 500 mg PO DAILY 07/12/20 02/09/24 tablet calcium carbonate 600 mg-vitamin 1 cap PO DAILY 10/26/20 02/09/24 D3 10 mcg (400 unit) capsule aspirin 81 mg tablet,delayed 81 mg PO DAILY 11/02/20 02/09/24 release (Adult Low Dose Aspirin) ferrous sulfate 142 mg (45 mg 45 mg PO BID 02/21/22 02/09/24 iron) tablet,extended release (Slow Fe) potassium chloride 20 mEq oral 20 meq PO DAILY 10/30/22 02/09/24 packet (Klor-Con) tamsulosin 0.4 mg capsule 0.4 mg PO DAILY 11/14/23 02/09/24 torsemide 20 mg tablet 40 mg PO BID 11/14/23 02/09/24 atorvastatin 20 mg tablet 20 mg PO DAILY 02/09/24 02/09/24 esomeprazole magnesium 40 mg 40 mg PO DAILY 02/09/24 02/09/24 capsule,delayed release finasteride 5 mg tablet 5 mg PO DAILY 02/09/24 02/09/24 ramipril 10 mg capsule 10 mg PO DAILY 02/09/24 02/09/24 Allergies Allergy/AdvReac Type Severity Reaction Status Date / Time clopidogrel [From Plavix] Allergy Itching Verified 02/09/24 16:46 Review of Systems Review of Systems: All systems reviewed & are unremarkable except as noted in HPI and below PMFSH Past Medical History Medical History Abdominal aortic aneurysm Arthritis Basal cell carcinoma (2010) Left ear 2010. Left ear and chin 2014. Right cheek 2018. Back and behind right ear 2019. Benign prostatic hyperplasia Chronic anemia Chronic kidney disease, stage 3 Baseline creatinine between 1.4 and 1.70. Congestive heart failure Coronary artery disease With history of stents in 2007. Negative Lexiscan stress in 06/2016. Elevated troponin Essential hypertension Gastroesophageal reflux disease Generalized osteoarthritis of multiple sites Hearing loss Status post cochlear implant. History of basal cell cancer Excised from right ear, chin, and left ear. Hyperlipidemia Hypertension Iron deficiency anemia Memory loss Mixed hyperlipidemia Obstructive sleep apnea treated with BiPAP Osteoarthritis Paroxysmal atrial fibrillation History of cardioversion and cardiac ablation. Status post Watchman 06/2022. Rheumatoid arthritis Seronegative arthropathy of multiple sites Skin cancer Spinal stenosis Subclinical hypothyroidism Subdural hematoma With evacuation after a fall years ago. Type 2 diabetes mellitus with kidney complication, without long-term current use of insulin Vitamin D deficiency Surgical History Surgical History History of arthroplasty of left knee (2013) History of arthroplasty of right knee (2006) History of basal cell carcinoma excision History of cardiac radiofrequency ablation History of cardioversion History of cataract extraction Left eye 2010 Right eye 2016 History of cholecystectomy (2005) History of cochlear implant (2017) Re-implant 2020 History of hemorrhoidectomy (1981) History of inguinal hernia repair (1976) History of lumbosacral spine surgery (2013) Radiofrequency nerve ablation. Histor
[2024-02-09] MEDS: SODIUM CHLORIDE 0.9% IV 1,000 ML 999 ML IV CONT (17:25)
[2024-02-09 17:33] LABS: Basophils Percent Auto 0.2 % (0.2-1.2); Eosinophils Absolute Auto 0.1 K/mm3 (0-0.3); Eosinophils Percent Auto 1.9 % (0-4.4); Hematocrit 24.3 % (42.0-52.0); Hemoglobin 8.6 g/dL (14.0-18.0); Immature Granulocyte Absolute 0.04 K/mm3 (0.00-0.031); Immature Granulocyte Percent A 0.8 % (0-0.5); Lymphocytes Absolute Auto 0.39 K/mm3 (0.9-3.2); Lymphocytes Percent Auto 7.6 % (18.3-44.2); Mean Corpuscular HGB Conc 35.4 g/dl (32-36); Mean Corpuscular Hemoglobin 34.4 pg (26-34); Mean Corpuscular Volume 97.2 fl (80-100); Mean Platelet Volume 9.7 fl (7.4-10.4); Monocytes Absolute Auto 0.5 K/mm3 (0.1-0.6); Monocytes Percent Auto 9.4 % (2.6-8.5); Neutrophils Absolute Auto 4.1 K/mm3 (1.3-6.7); Neutrophils Percent Auto 80.1 % (45.5-73.1); Platelet Count Result 99 k/mm3 (150-375); Red Cell Distribution Width 13.9 % (11.5-14.5); White Blood Count 5.1 K/mm3 (4.5-10.0)
[2024-02-09 17:43] LABS: Alanine Aminotransferase 24 U/L (6-50); Albumin Level 3.9 g/dL (3.5-5.1); Alkaline Phosphatase 77 U/L (38-126); Anion Gap 17 mmol/L (4-12); Aspartate Amino Transferase 23 U/L (17-59); Bilirubin,Total 0.6 mg/dL (0.2-1.3); Calcium 8.3 mg/dL (8.4-10.2); Carbon Dioxide 14 mmol/L (22-30); Chloride 89 mmol/L (98-107); Estimated CRCL calculation 11 ml/min; Estimated Glomerular Filt Rate 10; Glucose 92 mg/dL (65-110); Potassium 4.9 mmol/L (3.4-5.0); Sodium 120 mmol/L (137-145)
[2024-02-09 17:51] LABS: Blood Urea Nitrogen 151 mg/dL (9-20)
[2024-02-09 18:50] LABS: Appearance Urine Clear (Clear); Bilirubin Urine Negative (Negative); Blood Urine Negative (Negative); Color Urine Yellow (Yellow); Glucose Urine UA Negative (Negative); Ketones Urine Negative (Negative); Leukocyte Esterase Ur Negative LEU/UL (Negative); Nitrate Urine Negative (Negative); Protein Urine Negative (Negative); Specific Grav Ur 1.009 (1.001-1.035); Urobilinogen Urine 0.2 mg/dL (<2.0)
[2024-02-09 18:53] LABS: Add Urine Microscopic? NO
--- NOTE | 2024-02-09 19:29 | ADMGEN ---
This patient, Rob Britt, was admitted to Medical Room 242-. Patient/family oriented to hospital policies and general routines including ID bracelet, bed and alarms, visiting hours, pain management, procedures, bathroom and other care routines, personal items, smoking policy, room service/diet, and visiting hours. Information on how to activate the Rapid Response Team has been discussed. Patient/Family are encouraged to report perceived risks to care and to ask questions if they do not understand what they are told or what they should do.
--- NOTE | 2024-02-09 21:02 | PM.IMHP ---
H&P: HPI History of Present Illness Date/Time: 02/09/24 21:02 Chief Complaint: Low kidney function on labs Narrative: 88-year-old with an extensive past medical history including but not limited to dementia, chronic kidney disease combined systolic and diastolic heart failure, pulmonary hypertension, TAVR, leadless pacemaker placement, BPH, iron deficiency anemia, rheumatoid arthritis and obstructive sleep apnea who presented to the ER after outpatient labs demonstrated acutely worsening renal function and acute on chronic anemia. The patient had outpatient labs ordered by Nephrology. Labs returned with acute hyponatremia, markedly elevated BUN and creatinine from baseline. The patient himself denies any symptoms but he is only alert oriented to person and place and is a poor historian. He states he does not know why he was brought to the ER. Per ER documentation patient has been having increasing lower extremity swelling and had some medications to his cardiac medications as outpatient. He had follow-up labs with worsening renal function. He had further medication adjustments and it was noted that his renal function was continuing to worsen. The patient was directed to come to the hospital for evaluation. Patient had evidently had some diarrhea as well it is unclear if this was continuous or just 1 episode. The patient again denies any other symptoms but any time staff tries to lower the head of the bed the patient becomes anxious. He denies shortness of breath with this position change or pain but clearly does developed some distress he has marked pitting edema of bilateral lower extremities with several areas of skin tear without active bleeding. Couple of the areas of skin tear do have some serous drainage. He denies any pain on palpation of his lower extremities. He denies difficulty with urination. Postvoid residual was obtained well as at bedside patient only had 100 mL of urine in his bladder he had voided 250 mL. According nursing staff the patient and family refused to use the hospitals BiPAP. They did not bring the patient's BiPAP in with them from home. They do not want to bring the patient's home BiPAP because they have been told by the ER that they will only be hospitalized for 1 day. Review of Systems Review of Systems: ROS unobtainable: Yes unobtainable due to medical condition (Dementia) [facility] Past Medical History Medical History (Updated 02/10/24 @ 02:11 by Jasmin Barry DO) Abdominal aortic aneurysm Anemia in CKD (chronic kidney disease) Benign prostatic hyperplasia Chronic anemia Chronic kidney disease, stage IV (severe) Baseline creatinine around 2.2 Congestive heart failure Combined systolic and diastolic heart failure with echo cardiograms from 2021 demonstrating a combination EF of 40% April 2022 and grade 3 diastolic dysfunction on TTE February 2022, [id number] mitral valve regurgitation, moderate tricuspid valve regurgitation, bioprosthetic aortic valve with good function, moderate pulmonary hypertension Coronary artery disease With history of stents in 2007. Negative Lexiscan stress in 06/2016. 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 History of basal cell cancer Excised from right ear, chin, and left ear. Hyperlipemia Hypertension Iliac aneurysm Iron deficiency anemia Mixed hyperlipidemia Moderate pulmonary hypertension Obesity (BMI 30-39.9) Obstructive sleep apnea treated with BiPAP With follow-up with pulmonology November 2023 continuing BiPAP Paroxysmal atrial fibrillation History of cardioversion and cardiac ablation. Status post Watchman 06/2022. 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
--- NOTE | 2024-02-09 21:32 | PCRCNOTE ---
Attempted to bring Bipap unit to pt room. Nurse informed me pt and pt refuses to wear a hospital machine, stating that he will use his home unit if he must wear one. to bring in. RN and RT aware.
[2024-02-09] MEDS: SODIUM CHLORIDE 0.9% IV 1,000 ML 75 ML IV CONT (22:44)
--- NOTE | 2024-02-10 | ECHO_ITS ---
Patient Info Name: Rob Britt Age: 88 years : 1935 Gender: Male Ht: 70 in Wt: 254 lbs BSA: 2.43 m2 HR: 106 bpm BP: 111 / 55 mmHg Technical Quality: Good Exam Date: 02/10/2024 11:38 AM Exam Location: Echo Lab Patient Status: Inpatient Admit Date: 02/10/2024 Staff Ordering Physician: Jasmin Barry DO [employer] Hand: Basim Celaya RDCS Attending Provider: Chayito Mendez APRN Referring Physician: Asha RODRIUGEZ; Exam Type: CA echo dop color flow w con Study Info Indications - CHF Complete two-dimensional, color flow and Doppler transthoracic echocardiogram is performed. Summary 1. Technically difficult study with limited views. 2. Left ventricular chamber dimension is normal. 3. Left ventricular systolic function is normal, estimated at >70%. 4. There is mildly increased left ventricular wall thickness. 5. Right ventricular systolic function is normal. 6. Left atrial chamber dimension is moderately enlarged. 7. Right atrial chamber dimension is moderately enlarged. 8. There is mild mitral valve regurgitation. 9. There is mild to moderate tricuspid valve regurgitation. Left Ventricle Left ventricular chamber dimension is normal. Left ventricular systolic function is normal, estimated at >70%. There is mildly increased left ventricular wall thickness. Right Ventricle Right ventricular chamber dimension is normal. Right ventricular systolic function is normal. Left Atria Left atrial chamber dimension is moderately enlarged. Right Atria Right atrial chamber dimension is moderately enlarged. Atrial Septum Intact interatrial septum visualized by color flow imaging. Aortic Valve The aortic valve is not well visualized. There is no aortic valve regurgitation. Pulmonic Valve The pulmonic valve is not well visualized. There is trace pulmonic regurgitation. Mitral Valve There is mild mitral valve regurgitation. The mitral valve annulus is severely calcified. Tricuspid Valve There is mild to moderate tricuspid valve regurgitation. Pericardium/Pleural The pericardium appears epicardial fat pad. There is no pericardial effusion. Inferior Vena Cava Normal inferior vena cava with <50% collapse upon inspiration consistent with elevated right atrial pressure, 8 mmHg. Aorta The aortic root size at the sinus of Valsalva is normal. Left Ventricular Outflow Tract Name Value Normal LVOT 2D LVOT Diameter 1.98 cm LVOT Doppler LVOT Peak Gradient 3 mmHg LVOT Mean Gradient 2 mmHg LVOT VTI 23.27 cm LVOT VTI/AV VTI Ratio 0.82 LVOT Stroke Volume 71.86 ml LVOT CO 5.14 l/min LVOT CI 2.11 L/min/m2 Pulmonic Valve Name Value Normal PV Doppler PV Peak Gradient 1 mmHg Mitral Valve
[2024-02-10 01:32] LABS: Creatinine Urine 38.2 mg/dL; Total Protein Urine Random 12 mg/dL; Ur Ttl Prot Creatinine Ratio 0.31 mg/mg (0-0.20); Urea Random Urine 368 MG/DL
[2024-02-10 01:35] LABS: Sodium Urine Random 58 meq/L
[2024-02-10 01:52] LABS: Eosinophil Urine None Seen % (None Seen); Urine Eos QC 2nd Tech Confirmed
--- NOTE | 2024-02-10 01:57 | ECG_ITS ---
Test Date: 2024-02-10 03:15:58 Measurements Intervals [place] Rate: 75 P: 0 NH: 0 QRS: 67 QRSD: 162 T: 87 QT: 421 QTc: 472 Interpretive Statements ELECTRONIC VENTRICULAR PACEMAKER FREQUENT VENTRICULAR PREMATURE COMPLEXES BASELINE ARTIFACT- I, II, III, AVR, AVL, AVF, V1-V6 NO FURTHER INTERPRETATION IS POSSIBLE ABNORMAL ECG No previous ECG available for comparison Electronically Signed On 02-10-2024 06:38:47 CDT by Leroy Lion D.O.
[2024-02-10 06:00] VITALS: BP 116/58; PULSE 95; RESP 15; TEMP 36.6; O2SAT 96
[2024-02-10 06:19] LABS: Hemoglobin 8.8 g/dL (14.0-18.0); Immature Platelet Fraction Pct 2.3 % (0.9-11.2); Mean Corpuscular HGB Conc 35.2 g/dl (32-36); Mean Corpuscular Hemoglobin 34.4 pg (26-34); Mean Corpuscular Volume 97.7 fl (80-100); Mean Platelet Volume 9.8 fl (7.4-10.4); Platelet Count Result 103 k/mm3 (150-375); Red Blood Count 2.56 M/mm3 (4.6-6.20); Red Cell Distribution Width 13.9 % (11.5-14.5); White Blood Count 7.3 K/mm3 (4.5-10.0)
[2024-02-10 06:51] LABS: Creatine Kinase 129 U/L (55-170)
[2024-02-10 07:04] LABS: Thyroid Stimulating Hormone Reflex 0.284 uIU/mL (0.465-4.68)
[2024-02-10 07:06] LABS: Anion Gap 18 mmol/L (4-12); Calcium 8.3 mg/dL (8.4-10.2); Carbon Dioxide 15 mmol/L (22-30); Chloride 92 mmol/L (98-107); Estimated CRCL calculation 12 ml/min; Estimated Glomerular Filt Rate 10; Glucose 107 mg/dL (65-110); Potassium 4.9 mmol/L (3.4-5.0); Sodium 125 mmol/L (137-145)
[2024-02-10 07:08] LABS: Blood Urea Nitrogen 144 mg/dL (9-20)
--- NOTE | 2024-02-10 07:32 | P.PNIM_ITS ---
Progress Note: A&P Assessment and Plan (1) Acute kidney injury superimposed on stage 4 chronic kidney disease: Code(s): N17.9 - Acute kidney failure, unspecified; N18.4 - Chronic kidney disease, stage 4 (severe) Status: Acute (2) Anemia in CKD (chronic kidney disease): Code(s): N18.9 - Chronic kidney disease, unspecified; D63.1 - Anemia in chronic kidney disease Status: Acute (3) Hypo-osmolality and hyponatremia: Code(s): E87.1 - Hypo-osmolality and hyponatremia Status: Acute (4) Obstructive sleep apnea treated with BiPAP: Code(s): G47.33 - Obstructive sleep apnea (adult) (pediatric) Status: Acute (5) Acute on chronic combined systolic and diastolic CHF (congestive heart failure): Code(s): I50.43 - Acute on chronic combined systolic (congestive) and diastolic (congestive) heart failure Status: Acute (6) Gastroesophageal reflux disease: Code(s): K21.9 - Gastro-esophageal reflux disease without esophagitis Status: Acute (7) Benign prostatic hyperplasia: Qualifiers: Lower urinary tract symptom presence: unspecified whether lower urinary tract symptoms present Qualified Code(s): N40.0 - Benign prostatic hyperplasia without lower urinary tract symptoms Code(s): N40.0 - Benign prostatic hyperplasia without lower urinary tract symptoms Status: Acute Plan Acute on chronic renal failure * Stage 4 * Gentle IV hydration * Metolazone discontinued * monitor for fluid overload * Baseline around 2.00 * Cr. 5.7 POA * nephrology consulted * Holding LUISA and diuretic * Avoid nephrotoxic drugs. * S urine Osmo studies pending * Monitor antihypertensive drug therapy. * Avoid NSAIDs. * Routine CMP monitoring GFR. * Monitor electrolytes especially potassium. Hypo-osmolality with hyponatremia * NA 120 POA->125 * Nephrology consulted * Holding diuretics Acute on chronic combined diastolic and systolic heart failure * History of TAVR/valvular disease * cardiology may be consulted for medication adjustment recently changed medications causing worsening renal function * Diuretics on hold * previous echocardiogram results 2021 * echocardiogram pending * EKG Paced * chest x-ray * 2+ BLE edema * Lipid panel, TSH, liver function test. * Daily weight. * fluid restriction HX MERCEDES: Resume BIpap at night HX BPH: Resume Proscar HX GERD: PPI HX HTN: Stable holding ramipril Code status: Full code per patient DVT prophylaxis: scd Stress ulcer prophylaxis: Protonix 40 daily PT/OT notes: PT/OT Pending Disposition: Patient with admitted for worsening kidney function with renal failure nephrology has been consulted for further evaluation and treatment. PT OT pending patient currently lives at home with family would like to discharge him to [facility]. Time Spent With Patient Time with patient: 15 - 25 minutes Subjective Date/time seen: 02/10/24 07:32 Interval history: Admission: 88-year-old with an extensive past medical history including but not limited to dementia, chronic kidney disease combined systolic and diastolic heart failure, pulmonary hypertension, TAVR, leadless pacemaker placement, BPH, iron deficiency anemia, rheumatoid arthritis and obstructive sleep apnea who presented to the ER after outpatient labs demonstrated acutely worsening renal function and acute on chronic anemia. The patient had outpatient labs ordered
--- NOTE | 2024-02-10 07:32 | PM.IMPN ---
Progress Note: A&P Assessment and Plan (1) Acute kidney injury superimposed on stage 4 chronic kidney disease: Code(s): N17.9 - Acute kidney failure, unspecified; N18.4 - Chronic kidney disease, stage 4 (severe) Status: Acute (2) Anemia in CKD (chronic kidney disease): Code(s): N18.9 - Chronic kidney disease, unspecified; D63.1 - Anemia in chronic kidney disease Status: Acute (3) Hypo-osmolality and hyponatremia: Code(s): E87.1 - Hypo-osmolality and hyponatremia Status: Acute (4) Obstructive sleep apnea treated with BiPAP: Code(s): G47.33 - Obstructive sleep apnea (adult) (pediatric) Status: Acute (5) Acute on chronic combined systolic and diastolic CHF (congestive heart failure): Code(s): I50.43 - Acute on chronic combined systolic (congestive) and diastolic (congestive) heart failure Status: Acute (6) Gastroesophageal reflux disease: Code(s): K21.9 - Gastro-esophageal reflux disease without esophagitis Status: Acute (7) Benign prostatic hyperplasia: Qualifiers: Lower urinary tract symptom presence: unspecified whether lower urinary tract symptoms present Qualified Code(s): N40.0 - Benign prostatic hyperplasia without lower urinary tract symptoms Code(s): N40.0 - Benign prostatic hyperplasia without lower urinary tract symptoms Status: Acute Plan Acute on chronic renal failure Stage 4 Gentle IV hydration Metolazone discontinued monitor for fluid overload Baseline around 2.00 Cr. 5.7 POA nephrology consulted Holding LUISA and diuretic Avoid nephrotoxic drugs. S urine Osmo studies pending Monitor antihypertensive drug therapy. Avoid NSAIDs. Routine CMP monitoring GFR. Monitor electrolytes especially potassium. Hypo-osmolality with hyponatremia NA 120 POA->125 Nephrology consulted Holding diuretics Acute on chronic combined diastolic and systolic heart failure History of TAVR/valvular disease cardiology may be consulted for medication adjustment recently changed medications causing worsening renal function Diuretics on hold previous echocardiogram results 2021 echocardiogram pending EKG Paced chest x-ray 2+ BLE edema Lipid panel, TSH, liver function test. Daily weight. fluid restriction HX MERCEDES: Resume BIpap at night HX BPH: Resume Proscar HX GERD: PPI HX HTN: Stable holding ramipril Code status: Full code per patient DVT prophylaxis: scd Stress ulcer prophylaxis: Protonix 40 daily PT/OT notes: PT/OT Pending Disposition: Patient with admitted for worsening kidney function with renal failure nephrology has been consulted for further evaluation and treatment. PT OT pending patient currently lives at home with family would like to discharge him to [facility]. Time Spent With Patient Time with patient: 15 - 25 minutes Subjective Date/time seen: 02/10/24 07:32 Interval history: Admission: 88-year-old with an extensive past medical history including but not limited to dementia, chronic kidney disease combined systolic and diastolic heart failure, pulmonary hypertension, TAVR, leadless pacemaker placement, BPH, iron deficiency anemia, rheumatoid arthritis and obstructive sleep apnea who presented to the ER after outpatient labs demonstrated acutely worsening renal function and acute on chronic anemia. The patient had outpatient labs ordered by Nephrology. Labs returned with acute hyponatremia, markedly elevated BUN and creatinine from baseline. The patient himself denies any symptoms but he is only alert oriented to person and place and is a poor historian. He states he does not know why he was brought to the ER. Per ER documentation patient has been having increasing lower extremity swelling and had some medications to his cardiac medications as outpatient. He had follow-up labs with worsening renal function. He had fu
[2024-02-10 08:07] LABS: Free T4 Free Thyroxine Reflex 1.57 ng/dL (0.78-2.19)
--- NOTE | 2024-02-10 08:20 | PM.CNNEP ---
Assessment and Plan Assessment and plan (1) ANDI (acute kidney injury): Code(s): N17.9 - Acute kidney failure, unspecified Status: Acute Assessment and Plan: the patient has acute kidney injury. His creatinine in November was 2.44 with a GFR of 25. In mid January his creatinine was up to 6.9 and then on admission yesterday is 5.7 today is 5.4. There are several things that could be contributing to this higher creatinine. He is on torsemide and has had some diarrhea so he could be dehydrated. He could have rhabdomyolysis because he is on atorvastatin. We can check a CK he is on ramipril which by itself should not cause acute renal failure but if he does get acute renal failure the ramipril can exacerbate the height of the creatinine. He could have obstruction. He could have glomerulonephritis or interstitial nephritis, but I think these 2 are less likely. He is not on any new medications that I can see. Will check a renal ultrasound, CPK, urine electrolytes. Chest x-ray does not look too bad and his lungs are clear so I think we can give him a little more IV fluids. (2) Paroxysmal atrial fibrillation: Code(s): I48.0 - Paroxysmal atrial fibrillation Status: Acute Assessment and Plan: Heart rate is running 70s to 90s his rhythm is paced. (3) Coronary artery disease: Code(s): I25.10 - Atherosclerotic heart disease of [place] coronary artery without angina pectoris Status: Acute Assessment and Plan: Not having any chest pain. (4) Essential hypertension: Code(s): I10 - Essential (primary) hypertension Status: Acute Assessment and Plan: Blood pressure is under good control (5) Anemia in CKD (chronic kidney disease): Code(s): N18.9 - Chronic kidney disease, unspecified; D63.1 - Anemia in chronic kidney disease Status: Acute Assessment and Plan: hemoglobin is 8.8. Up from 8.6. Will watch this. He may need EPO. (6) Obstructive sleep apnea treated with BiPAP: Code(s): G47.33 - Obstructive sleep apnea (adult) (pediatric) Status: Acute Assessment and Plan: He uses a BiPAP machine at home (7) Secondary renal hyperparathyroidism: Code(s): N25.81 - Secondary hyperparathyroidism of renal origin Status: Acute Assessment and Plan: will check a phosphorus in the morning (8) Acute hyponatremia: Code(s): E87.1 - Hypo-osmolality and hyponatremia Status: Acute Assessment and Plan: the sodium level is low. it has occasionally been low in the past. This is probably related to the congestive heart failure plus the torsemide. May drink a lot of water as well. Now he does have some dehydration and so this could contribute as well. Other things that do this are medications. He is on esomeprazole. We can switch this to Pepcid. 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 Consider CT of the brain if it does not get better soon cancer can do this but he has no active cancer disease. He says he recently had a colonoscopy. Hormonal issues can do this. Will check a TSH and a cortisol. Pulmonary disease can do this. Chest x-ray does not show any space-occupying lesions. At this point we will get serum and urine osmolality, protein electrophoresis, TSH and cortisol. Will give isotonic saline to treat his dehydration and watch the sodium closely. History of Present Illness Reason for Consult Consult date: 02/10/24 Chief Complaint Chief complaint: ANDI on CKD, Hyponatremia History of Present Illness Narrative: Rob is a very pleasant 88-year-old gentleman who has multiple medical problems including left-sided and right-sided heart failure, pulmonary hypertension, aortic stenosis status post TAVR, BPH, anemia, rheumatoid arthritis, sleep apnea, chronic kidney disease, and dementia. The patient had burt
[2024-02-10 08:47] VITALS: PULSE 73; RESP 20; O2SAT 98
[2024-02-10 08:56] LABS: IFOB Positive Control Positive; Immunochemical Fecal Occult Bl Positive (N)
[2024-02-10] MEDS: FERROUS SULFATE DRIED 142 MG TABCR PO ×2 (09:30→18:16)
[2024-02-10] MEDS: ASCORBIC ACID 500 MG TABLET PO (09:30)
[2024-02-10] MEDS: CALCIUM/VITAMIN D 500 MG/5 MCG (200 I.U.) TABLET PO (09:30)
[2024-02-10] MEDS: MULTIVITAMINS THERAPEUTIC TAB (*BKC) 1 TABLET PO (09:30)
[2024-02-10] MEDS: ASPIRIN 81 MG ENTERIC TABLET PO (09:30)
[2024-02-10] MEDS: CHOLECALCIFEROL 1,000 UNITS TABLET 1000 UNITS PO (09:30)
[2024-02-10] MEDS: FINASTERIDE 5 MG TABLET PO (09:31)
[2024-02-10] MEDS: TAMSULOSIN HCL 0.4 MG CAPSULE PO (09:31)
[2024-02-10] MEDS: PANTOPRAZOLE 40 MG TABLET PO (09:31)
[2024-02-10] MEDS: SODIUM CHLORIDE 0.9% IV 1,000 ML 75 ML IV CONT ×2 (09:41→18:17)
[2024-02-10] MEDS: PERFLUTREN LIPID MICROSPHERES 1.5 ML VIAL DILUTED TO 10 ML TOTAL VOLUME IV PUSH (11:55)
--- NOTE | 2024-02-10 12:16 | IVDEFINITY ---
Prior to administration of IV Definity the patient was educated on the risks and benefits of the imaging enhancing agent including potential adverse side effects. The patient verbalized understanding. Allergies were verified. No exclusion criteria were identified and at least one of the following inclusion criteria were met: 1) physician request, 2) patient technically difficult to image (per the [place] [employer] guidelines of two or more segments not discernable within the apical view), or 3) questionable left ventricular function. ?
[2024-02-10 13:34] LABS: Sodium 124 mmol/L (137-145)
[2024-02-10 14:00] VITALS: BP 124/51; PULSE 82; RESP 18; TEMP 36.5; O2SAT 100
[2024-02-10 18:06] LABS: Total Triiodothyronine (T3) 0.74 NG/ML (0.97-1.69)
[2024-02-10 19:20] LABS: Sodium 125 mmol/L (137-145)
[2024-02-10 19:49] VITALS: BP 97/48; PULSE 81; RESP 20; TEMP 36.5; O2SAT 97
[2024-02-10] MEDS: ATORVASTATIN 20 MG TABLET PO (20:55)
[2024-02-10] MEDS: SODIUM BICARBONATE 8.4% 150 MEQ in WATER, STERILE FOR INJECTION 950 ML 75 MEQ IV CONT (21:38)
[2024-02-10] MEDS: MELATONIN 3 MG TABLET PO (21:38)
[2024-02-11 04:28] VITALS: BP 113/64; PULSE 91; RESP 20; TEMP 36.5; O2SAT 98
[2024-02-11 05:37] LABS: Hematocrit 24.7 % (42.0-52.0); Hemoglobin 8.4 g/dL (14.0-18.0); Mean Corpuscular Hemoglobin 33.5 pg (26-34); Mean Corpuscular Volume 98.4 fl (80-100); Mean Platelet Volume 10.1 fl (7.4-10.4); Platelet Count Result 94 k/mm3 (150-375); Red Blood Count 2.51 M/mm3 (4.6-6.20); Red Cell Distribution Width 13.9 % (11.5-14.5); White Blood Count 6.6 K/mm3 (4.5-10.0)
[2024-02-11 05:52] LABS: Alanine Aminotransferase 33 U/L (6-50); Albumin Level 3.7 g/dL (3.5-5.1); Alkaline Phosphatase 80 U/L (38-126); Anion Gap 17 mmol/L (4-12); Aspartate Amino Transferase 30 U/L (17-59); Bilirubin,Total 0.7 mg/dL (0.2-1.3); Calcium 8.5 mg/dL (8.4-10.2); Carbon Dioxide 16 mmol/L (22-30); Chloride 94 mmol/L (98-107); Estimated CRCL calculation 13 ml/min; Estimated Glomerular Filt Rate 11; Glucose 114 mg/dL (65-110); Potassium 4.2 mmol/L (3.4-5.0); Sodium 127 mmol/L (137-145)
[2024-02-11 05:57] LABS: Blood Urea Nitrogen 137 mg/dL (9-20)
--- NOTE | 2024-02-11 07:44 | P.PNIM_ITS ---
Progress Note: A&P Assessment and Plan (1) Acute kidney injury superimposed on stage 4 chronic kidney disease: Code(s): N17.9 - Acute kidney failure, unspecified; N18.4 - Chronic kidney disease, stage 4 (severe) Status: Acute (2) Anemia in CKD (chronic kidney disease): Code(s): N18.9 - Chronic kidney disease, unspecified; D63.1 - Anemia in chronic kidney disease Status: Acute (3) Hypo-osmolality and hyponatremia: Code(s): E87.1 - Hypo-osmolality and hyponatremia Status: Acute (4) Obstructive sleep apnea treated with BiPAP: Code(s): G47.33 - Obstructive sleep apnea (adult) (pediatric) Status: Acute (5) Acute on chronic combined systolic and diastolic CHF (congestive heart failure): Code(s): I50.43 - Acute on chronic combined systolic (congestive) and diastolic (congestive) heart failure Status: Acute (6) Gastroesophageal reflux disease: Code(s): K21.9 - Gastro-esophageal reflux disease without esophagitis Status: Acute (7) Benign prostatic hyperplasia: Qualifiers: Lower urinary tract symptom presence: unspecified whether lower urinary tract symptoms present Qualified Code(s): N40.0 - Benign prostatic hyperplasia without lower urinary tract symptoms Code(s): N40.0 - Benign prostatic hyperplasia without lower urinary tract symptoms Status: Acute Plan Acute on chronic renal failure * Stage 4 * Gentle IV hydration * Metolazone discontinued * monitor for fluid overload * Baseline around 2.00 * Cr. 5.7 POA * nephrology consulted * Holding LUISA and diuretic * Avoid nephrotoxic drugs. * S urine Osmo studies pending * Monitor antihypertensive drug therapy. * Avoid NSAIDs. * Routine CMP monitoring GFR. * Monitor electrolytes especially potassium. 02/11/2024: * Renal function improving Cr 4.9 today * continue with gentle hydration * Fluid restriction Hypo-osmolality with hyponatremia * NA 120 POA->125 * Nephrology consulted * Holding diuretics 02/11/2024: * NA127 * Continue with current treatment plan monitor for fluid overload Acute on chronic combined diastolic and systolic heart failure * History of TAVR/valvular disease * cardiology may be consulted for medication adjustment recently changed medications causing worsening renal function * Diuretics on hold * previous echocardiogram results 2021 * echocardiogram pending * EKG Paced * chest x-ray * 2+ BLE edema * Lipid panel, TSH, liver function test. * Daily weight. * fluid restriction HX MERCEDES: Resume BIpap at night HX BPH: Resume Proscar HX GERD: PPI HX HTN: Stable holding ramipril probably will need to discontinued at discharge Code status: Full code per patient DVT prophylaxis: scd Stress ulcer prophylaxis: Protonix 40 daily PT/OT notes: PT/OT Pending Disposition: Patient with admitted for worsening kidney function with renal failure nephrology has been consulted for further evaluation and treatment. PT OT pending patient currently lives at home with family would like to discharge him to [facility]. CC consulted to assist. Time Spent With Patient Time with patient: 15 - 25 minutes Subjective Date/time seen: 02/11/24 07:44 Interval history: Admission: 88-year-old with an extensive past medical history including but not limited to dementia, chronic kidney disease combined systolic and diastolic heart failure,
--- NOTE | 2024-02-11 07:44 | PM.IMPN ---
Progress Note: A&P Assessment and Plan (1) Acute kidney injury superimposed on stage 4 chronic kidney disease: Code(s): N17.9 - Acute kidney failure, unspecified; N18.4 - Chronic kidney disease, stage 4 (severe) Status: Acute (2) Anemia in CKD (chronic kidney disease): Code(s): N18.9 - Chronic kidney disease, unspecified; D63.1 - Anemia in chronic kidney disease Status: Acute (3) Hypo-osmolality and hyponatremia: Code(s): E87.1 - Hypo-osmolality and hyponatremia Status: Acute (4) Obstructive sleep apnea treated with BiPAP: Code(s): G47.33 - Obstructive sleep apnea (adult) (pediatric) Status: Acute (5) Acute on chronic combined systolic and diastolic CHF (congestive heart failure): Code(s): I50.43 - Acute on chronic combined systolic (congestive) and diastolic (congestive) heart failure Status: Acute (6) Gastroesophageal reflux disease: Code(s): K21.9 - Gastro-esophageal reflux disease without esophagitis Status: Acute (7) Benign prostatic hyperplasia: Qualifiers: Lower urinary tract symptom presence: unspecified whether lower urinary tract symptoms present Qualified Code(s): N40.0 - Benign prostatic hyperplasia without lower urinary tract symptoms Code(s): N40.0 - Benign prostatic hyperplasia without lower urinary tract symptoms Status: Acute Plan Acute on chronic renal failure Stage 4 Gentle IV hydration Metolazone discontinued monitor for fluid overload Baseline around 2.00 Cr. 5.7 POA nephrology consulted Holding LUISA and diuretic Avoid nephrotoxic drugs. S urine Osmo studies pending Monitor antihypertensive drug therapy. Avoid NSAIDs. Routine CMP monitoring GFR. Monitor electrolytes especially potassium. 02/11/2024: Renal function improving Cr 4.9 today continue with gentle hydration Fluid restriction Hypo-osmolality with hyponatremia NA 120 POA->125 Nephrology consulted Holding diuretics 02/11/2024: NA127 Continue with current treatment plan monitor for fluid overload Acute on chronic combined diastolic and systolic heart failure History of TAVR/valvular disease cardiology may be consulted for medication adjustment recently changed medications causing worsening renal function Diuretics on hold previous echocardiogram results 2021 echocardiogram pending EKG Paced chest x-ray 2+ BLE edema Lipid panel, TSH, liver function test. Daily weight. fluid restriction HX MERCEDES: Resume BIpap at night HX BPH: Resume Proscar HX GERD: PPI HX HTN: Stable holding ramipril probably will need to discontinued at discharge Code status: Full code per patient DVT prophylaxis: scd Stress ulcer prophylaxis: Protonix 40 daily PT/OT notes: PT/OT Pending Disposition: Patient with admitted for worsening kidney function with renal failure nephrology has been consulted for further evaluation and treatment. PT OT pending patient currently lives at home with family would like to discharge him to [facility]. CC consulted to assist. Time Spent With Patient Time with patient: 15 - 25 minutes Subjective Date/time seen: 02/11/24 07:44 Interval history: Admission: 88-year-old with an extensive past medical history including but not limited to dementia, chronic kidney disease combined systolic and diastolic heart failure, pulmonary hypertension, TAVR, leadless pacemaker placement, BPH, iron deficiency anemia, rheumatoid arthritis and obstructive sleep apnea who presented to the ER after outpatient labs demonstrated acutely worsening renal function and acute on chronic anemia. The patient had outpatient labs ordered by Nephrology. Labs returned with acute hyponatremia, markedly elevated BUN and creatinine from baseline. The patient himself denies any symptoms but he is only alert oriented to person and place and is a poor historian. He
--- NOTE | 2024-02-11 08:43 | PM.PNNEP ---
Progress Note: A&P Assessment and Plan (1) ANDI (acute kidney injury): Code(s): N17.9 - Acute kidney failure, unspecified Status: Acute Assessment and Plan: the patient has acute kidney injury. His creatinine in November was 2.44 with a GFR of 25. In mid January his creatinine was up to 6.9 and then on admission was 5.7 then 5.4 and now 4.9 Renal sono one cyst Urine 'lytes and FeUrea are nonprerenal. CK normal UA is bland this may be prerenal azotemia. continue gentle hydration as his numbers are improving. (2) Paroxysmal atrial fibrillation: Code(s): I48.0 - Paroxysmal atrial fibrillation Status: Acute Assessment and Plan: Heart rate is running 70s to 90s his rhythm is paced. (3) Coronary artery disease: Code(s): I25.10 - Atherosclerotic heart disease of [place] coronary artery without angina pectoris Status: Acute Assessment and Plan: Not having any chest pain. (4) Essential hypertension: Code(s): I10 - Essential (primary) hypertension Status: Acute Assessment and Plan: Blood pressure is under good control (5) Anemia in CKD (chronic kidney disease): Code(s): N18.9 - Chronic kidney disease, unspecified; D63.1 - Anemia in chronic kidney disease Status: Acute Assessment and Plan: hemoglobin is 8.4. n o need for epo yet (6) Obstructive sleep apnea treated with BiPAP: Code(s): G47.33 - Obstructive sleep apnea (adult) (pediatric) Status: Acute Assessment and Plan: He uses a BiPAP machine at home (7) Secondary renal hyperparathyroidism: Code(s): N25.81 - Secondary hyperparathyroidism of renal origin Status: Acute Assessment and Plan: P 6. will add calcium (8) Acute hyponatremia: Code(s): E87.1 - Hypo-osmolality and hyponatremia Status: Acute Assessment and Plan: the sodium level is low. it has occasionally been low in the past. This is probably related to the congestive heart failure plus the torsemide. May drink a lot of water as well. diarrhea, PPI may have contributed as well. 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 Consider CT of the brain if it does not get better soon cancer can do this but he has no active cancer disease. He says he recently had a colonoscopy. Hormonal issues can do this. cortisol is okay. TSH is low, Ft3 is low as well. Ft4 is normal. etiology? Pulmonary disease can do this. Chest x-ray does not show any space-occupying lesions. sodium is better with isotonic fluid and fluid restriction. Subjective Date/time seen: 02/11/24 08:43 Interval history: in the room. pt is up in a chair. eager for discharge. he has no sob. eating okay Review of Systems Cardiovascular: Cardiovascular: Reports no additional cardiovascular complaints Respiratory: Respiratory: Reports no additional respiratory complaints Gastrointestinal: Gastrointestinal: Reports no additional gastrointestinal complaints Genitourinary: Genitourinary: Reports no additional male genitourinary complaints Exam Narrative: WDWN in NAD skin no rash head ncat lungs clear cor reg no rub abd BS+ nontender and soft ext 2+ bilateral edema. Objective Data Vital Signs Vital Signs: Vital Signs - 24 hr 02/10/24 08:47 02/10/24 09:30 02/10/24 14:00 Temperature 97.7 F Pulse Rate 73 82 Respiratory Rate 20 18 Blood Pressure 124/51 L Pulse Oximetry 98 100 Oxygen Delivery Room Air Room Air Fraction of Inspired Oxygen 02/10/24 19:49 02/11/24 04:28 Temperature 97.7 F 97.7 F Pulse Rate 81 91 Respiratory Rate 20 20 Blood Pressure 97/48 L 113/64 Pulse Oximetry 97 98 Oxygen Delivery Fraction of Inspired Oxygen Intake/Output Intake/Output: Intake & Output 02/08/24 02/09/24 02/10/24 02/11/24 23:59 23:59 23:59 23:59 Intake Total 1000 2317 290 O
[2024-02-11] MEDS: CHOLECALCIFEROL 1,000 UNITS TABLET 1000 UNITS PO (09:01)
[2024-02-11] MEDS: ASCORBIC ACID 500 MG TABLET PO (09:01)
[2024-02-11] MEDS: ASPIRIN 81 MG ENTERIC TABLET PO (09:01)
[2024-02-11] MEDS: CALCIUM/VITAMIN D 500 MG/5 MCG (200 I.U.) TABLET PO (09:01)
[2024-02-11] MEDS: FINASTERIDE 5 MG TABLET PO (09:02)
[2024-02-11] MEDS: MULTIVITAMINS THERAPEUTIC TAB (*BKC) 1 TABLET PO (09:02)
[2024-02-11] MEDS: TAMSULOSIN HCL 0.4 MG CAPSULE PO (09:02)
[2024-02-11] MEDS: FERROUS SULFATE DRIED 142 MG TABCR PO ×2 (09:02→17:02)
[2024-02-11] MEDS: FAMOTIDINE 20 MG TABLET PO ×2 (09:06→20:03)
[2024-02-11] MEDS: CALCIUM ACETATE 667 MG TABLET PO ×3 (09:08→17:02)
[2024-02-11] MEDS: SODIUM BICARBONATE 8.4% 150 MEQ in WATER, STERILE FOR INJECTION 950 ML 75 MEQ IV CONT (11:57)
--- NOTE | 2024-02-11 12:05 | PCPTNOTE ---
On 02/11/24, the student, [Cheryl Priest], provided care and completed [facility] documentation on this patient. I have reviewed the student's documentation and agree with the findings.
[2024-02-11 14:00] VITALS: BP 101/54; PULSE 71; RESP 17; TEMP 36.6; O2SAT 100
[2024-02-11 20:00] VITALS: PULSE 67; RESP 20; O2SAT 100
[2024-02-11] MEDS: MELATONIN 3 MG TABLET PO (20:03)
[2024-02-11] MEDS: ATORVASTATIN 20 MG TABLET PO (20:03)
[2024-02-11 20:07] VITALS: BP 102/56; PULSE 67; RESP 20; TEMP 36.6; O2SAT 100
[2024-02-12 04:00] VITALS: BP 105/78; PULSE 79; RESP 20; TEMP 36.6; O2SAT 100
[2024-02-12 04:08] LABS: Protein, Total 6.3 g/dL (6.1-8.1)
[2024-02-12 05:38] LABS: Hematocrit 26.2 % (42.0-52.0); Hemoglobin 8.8 g/dL (14.0-18.0); Mean Corpuscular HGB Conc 33.6 g/dl (32-36); Mean Corpuscular Hemoglobin 33.1 pg (26-34); Mean Corpuscular Volume 98.5 fl (80-100); Mean Platelet Volume 10.1 fl (7.4-10.4); Platelet Count Result 112 k/mm3 (150-375); Red Blood Count 2.66 M/mm3 (4.6-6.20); Red Cell Distribution Width 14.1 % (11.5-14.5); White Blood Count 8.2 K/mm3 (4.5-10.0)
[2024-02-12 06:04] LABS: Alanine Aminotransferase 33 U/L (6-50); Albumin Level 3.9 g/dL (3.5-5.1); Alkaline Phosphatase 96 U/L (38-126); Anion Gap 16 mmol/L (4-12); Aspartate Amino Transferase 30 U/L (17-59); Bilirubin,Total 0.8 mg/dL (0.2-1.3); Calcium 8.9 mg/dL (8.4-10.2); Carbon Dioxide 22 mmol/L (22-30); Chloride 91 mmol/L (98-107); Estimated CRCL calculation 14 ml/min; Estimated Glomerular Filt Rate 12; Glucose 124 mg/dL (65-110); Potassium 3.8 mmol/L (3.4-5.0); Sodium 129 mmol/L (137-145)
[2024-02-12 06:11] LABS: Blood Urea Nitrogen 137 mg/dL (9-20)
[2024-02-12] MEDS: ASCORBIC ACID 500 MG TABLET PO (08:22)
[2024-02-12] MEDS: ASPIRIN 81 MG ENTERIC TABLET PO (08:22)
[2024-02-12] MEDS: FAMOTIDINE 20 MG TABLET PO ×2 (08:23→20:38)
[2024-02-12] MEDS: CHOLECALCIFEROL 1,000 UNITS TABLET 1000 UNITS PO (08:23)
[2024-02-12] MEDS: CALCIUM/VITAMIN D 500 MG/5 MCG (200 I.U.) TABLET PO (08:23)
[2024-02-12] MEDS: CALCIUM ACETATE 667 MG TABLET PO ×3 (08:23→16:39)
[2024-02-12] MEDS: TAMSULOSIN HCL 0.4 MG CAPSULE PO (08:24)
[2024-02-12] MEDS: FINASTERIDE 5 MG TABLET PO (08:30)
[2024-02-12] MEDS: MULTIVITAMINS THERAPEUTIC TAB (*BKC) 1 TABLET PO (08:30)
[2024-02-12] MEDS: FERROUS SULFATE DRIED 142 MG TABCR PO ×2 (08:30→16:39)
[2024-02-12] MEDS: SODIUM BICARBONATE 8.4% 150 MEQ in WATER, STERILE FOR INJECTION 950 ML 75 MEQ IV CONT (08:32)
--- NOTE | 2024-02-12 11:27 | PM.PNNEP ---
Progress Note: A&P Assessment and Plan (1) ANDI (acute kidney injury): Code(s): N17.9 - Acute kidney failure, unspecified Status: Acute Assessment and Plan: the patient has acute kidney injury on top of chronic kidney disease.. His creatinine in November was 2.44 with a GFR of 25. In mid January his creatinine was up to 6.9 and then on admission was 5.7 then 5.4 and now 4.9. It seems to have stabilized at this level. Renal sono one cyst, no hydro, and normal size kidneys. Urine 'lytes and FeUrea are nonprerenal. CK normal UA is bland The patient has been getting IV fluids and his numbers improved from 6.9-4.9 but has stabilized there. It is unclear why it is not getting any better. He does have a lot of fluid in his legs chest x-ray is fairly clear. The echocardiogram shows good LV EF but some dilated chambers. With a bland urinalysis it is likely he does not have something inflammatory going, but I am going to get serology to see if there is any other reason for it not to get better. I will also order renal scan to assess for blood flow and possible ATN. If he does not get better in the next couple of days then this just may be a new baseline. If so he is very close to dialysis. He does not need it now but would eventually need it. I talked about this with the patient's and daughter. With his dementia and his debilitated state he would not want this done. continue gentle hydration since he is not eating. (2) Paroxysmal atrial fibrillation: Code(s): I48.0 - Paroxysmal atrial fibrillation Status: Acute Assessment and Plan: Heart rate is running 70s to 90s his rhythm is paced. (3) Coronary artery disease: Code(s): I25.10 - Atherosclerotic heart disease of [place] coronary artery without angina pectoris Status: Acute Assessment and Plan: Not having any chest pain. (4) Essential hypertension: Code(s): I10 - Essential (primary) hypertension Status: Acute Assessment and Plan: Blood pressure is under good control (5) Anemia in CKD (chronic kidney disease): Code(s): N18.9 - Chronic kidney disease, unspecified; D63.1 - Anemia in chronic kidney disease Status: Acute Assessment and Plan: hemoglobin is 8.8. no need for epo yet (6) Obstructive sleep apnea treated with BiPAP: Code(s): G47.33 - Obstructive sleep apnea (adult) (pediatric) Status: Acute Assessment and Plan: He uses a BiPAP machine at home (7) Secondary renal hyperparathyroidism: Code(s): N25.81 - Secondary hyperparathyroidism of renal origin Status: Acute Assessment and Plan: P 6. will add calcium (8) Acute hyponatremia: Code(s): E87.1 - Hypo-osmolality and hyponatremia Status: Acute Assessment and Plan: the sodium level is low. it has occasionally been low in the past. This is probably related to the congestive heart failure plus the torsemide. May drink a lot of water as well. diarrhea, PPI may have contributed as well. ONLINE ADVERTISING MANAGER disease does this as well but he has no symptoms of that right now other than his dementia. Consider CT of the brain if it does not get better soon cancer can do this but he has no active cancer disease. He says he recently had a colonoscopy. Hormonal issues can do this. cortisol is okay. TSH is low, Ft3 is low as well. Ft4 is normal. etiology? Pulmonary disease can do this. Chest x-ray does not show any space-occupying lesions. sodium is better with isotonic fluid and fluid restriction. Subjective Date/time seen: 02/12/24 11:27 Interval history: Patient is sitting up in a chair. and daughter are in the room. The patient feels okay. His says that he does sleep often during the day. He has been eating fair but not great. Exam Narrative: WDWN male in NAD skin no rash head ncat lungs clear bilaterally cor reg no rub or gallop a
[2024-02-12 12:13] LABS: Albumin 3.4 g/dL (3.8-4.8); Alpha 1 Globulin 0.4 g/dL (0.2-0.3); Alpha 2 Globulin 0.8 g/dL (0.5-0.9); Beta 1 Globulin 0.4 g/dL (0.4-0.6); Gamma Globulin 1.1 g/dL (0.8-1.7)
[2024-02-12 12:37] LABS: Complement C3 89 mg/dL (88-165)
[2024-02-12 14:00] VITALS: BP 100/55; PULSE 108; RESP 18; TEMP 36.9; O2SAT 97
--- NOTE | 2024-02-12 14:20 | P.PNIM_ITS ---
Progress Note: A&P Assessment and Plan (1) Acute kidney injury superimposed on stage 4 chronic kidney disease: Code(s): N17.9 - Acute kidney failure, unspecified; N18.4 - Chronic kidney disease, stage 4 (severe) Status: Acute (2) Anemia in CKD (chronic kidney disease): Code(s): N18.9 - Chronic kidney disease, unspecified; D63.1 - Anemia in chronic kidney disease Status: Acute (3) Hypo-osmolality and hyponatremia: Code(s): E87.1 - Hypo-osmolality and hyponatremia Status: Acute (4) Obstructive sleep apnea treated with BiPAP: Code(s): G47.33 - Obstructive sleep apnea (adult) (pediatric) Status: Acute (5) Acute on chronic combined systolic and diastolic CHF (congestive heart failure): Code(s): I50.43 - Acute on chronic combined systolic (congestive) and diastolic (congestive) heart failure Status: Acute (6) Gastroesophageal reflux disease: Code(s): K21.9 - Gastro-esophageal reflux disease without esophagitis Status: Acute (7) Benign prostatic hyperplasia: Qualifiers: Lower urinary tract symptom presence: unspecified whether lower urinary tract symptoms present Qualified Code(s): N40.0 - Benign prostatic hyperplasia without lower urinary tract symptoms Code(s): N40.0 - Benign prostatic hyperplasia without lower urinary tract symptoms Status: Acute Plan Acute on chronic renal failure * Stage 4 * Gentle IV hydration * Metolazone discontinued * monitor for fluid overload * Baseline around 2.00 * Cr. 5.7 POA * nephrology consulted * Holding LUISA and diuretic * Avoid nephrotoxic drugs. * S urine Osmo studies pending * Monitor antihypertensive drug therapy. * Avoid NSAIDs. * Routine CMP monitoring GFR. * Monitor electrolytes especially potassium. 02/11/2024: * Renal function improving Cr 4.9 today * continue with gentle hydration * Fluid restriction. 02/12/2024 * Created today currently 4.8. * Continue current IV fluids. * Labs in morning Hypo-osmolality with hyponatremia * NA 120 POA->125 POA-> 129 * Nephrology consulted * Holding diuretics 02/11/2024: * NA127 * Continue with current treatment plan monitor for fluid overload Acute on chronic combined diastolic and systolic heart failure * History of TAVR/valvular disease * cardiology may be consulted for medication adjustment recently changed medications causing worsening renal function * Diuretics on hold * previous echocardiogram results 2021 * echocardiogram EF of 70% * EKG Paced * chest x-ray Bilateral basal atelectatic changes. Early pneumonia cannot be excluded. Clinical correlation advised. * 2+ BLE edema * Lipid panel, TSH, liver function test. * Daily weight. * fluid restriction HX MERCEDES: Resume BIpap at night HX BPH: Resume Proscar HX GERD: PPI HX HTN: Stable holding ramipril probably will need to discontinued at discharge Code status: Full code per patient DVT prophylaxis: scd Stress ulcer prophylaxis: Protonix 40 daily PT/OT notes: PT/OT Pending Disposition: Patient with admitted for worsening kidney function with renal failure nephrology has been consulted for further evaluation and treatment. PT OT pending patient currently lives at home with family would like to discharge him to [facility]. CC consulted to assist. Time Spent With Patient Time: 48 mintues Time with patient: Greater than 35 minutes Subjective
--- NOTE | 2024-02-12 14:20 | PM.IMPN ---
Progress Note: A&P Assessment and Plan (1) Acute kidney injury superimposed on stage 4 chronic kidney disease: Code(s): N17.9 - Acute kidney failure, unspecified; N18.4 - Chronic kidney disease, stage 4 (severe) Status: Acute (2) Anemia in CKD (chronic kidney disease): Code(s): N18.9 - Chronic kidney disease, unspecified; D63.1 - Anemia in chronic kidney disease Status: Acute (3) Hypo-osmolality and hyponatremia: Code(s): E87.1 - Hypo-osmolality and hyponatremia Status: Acute (4) Obstructive sleep apnea treated with BiPAP: Code(s): G47.33 - Obstructive sleep apnea (adult) (pediatric) Status: Acute (5) Acute on chronic combined systolic and diastolic CHF (congestive heart failure): Code(s): I50.43 - Acute on chronic combined systolic (congestive) and diastolic (congestive) heart failure Status: Acute (6) Gastroesophageal reflux disease: Code(s): K21.9 - Gastro-esophageal reflux disease without esophagitis Status: Acute (7) Benign prostatic hyperplasia: Qualifiers: Lower urinary tract symptom presence: unspecified whether lower urinary tract symptoms present Qualified Code(s): N40.0 - Benign prostatic hyperplasia without lower urinary tract symptoms Code(s): N40.0 - Benign prostatic hyperplasia without lower urinary tract symptoms Status: Acute Plan Acute on chronic renal failure Stage 4 Gentle IV hydration Metolazone discontinued monitor for fluid overload Baseline around 2.00 Cr. 5.7 POA nephrology consulted Holding LUISA and diuretic Avoid nephrotoxic drugs. S urine Osmo studies pending Monitor antihypertensive drug therapy. Avoid NSAIDs. Routine CMP monitoring GFR. Monitor electrolytes especially potassium. 02/11/2024: Renal function improving Cr 4.9 today continue with gentle hydration Fluid restriction. 02/12/2024 Created today currently 4.8. Continue current IV fluids. Labs in morning Hypo-osmolality with hyponatremia NA 120 POA->125 POA-> 129 Nephrology consulted Holding diuretics 02/11/2024: NA127 Continue with current treatment plan monitor for fluid overload Acute on chronic combined diastolic and systolic heart failure History of TAVR/valvular disease cardiology may be consulted for medication adjustment recently changed medications causing worsening renal function Diuretics on hold previous echocardiogram results 2021 echocardiogram EF of 70% EKG Paced chest x-ray Bilateral basal atelectatic changes. Early pneumonia cannot be excluded. Clinical correlation advised. 2+ BLE edema Lipid panel, TSH, liver function test. Daily weight. fluid restriction HX MERCEDES: Resume BIpap at night HX BPH: Resume Proscar HX GERD: PPI HX HTN: Stable holding ramipril probably will need to discontinued at discharge Code status: Full code per patient DVT prophylaxis: scd Stress ulcer prophylaxis: Protonix 40 daily PT/OT notes: PT/OT Pending Disposition: Patient with admitted for worsening kidney function with renal failure nephrology has been consulted for further evaluation and treatment. PT OT pending patient currently lives at home with family would like to discharge him to [facility]. CC consulted to assist. Time Spent With Patient Time: 48 mintues Time with patient: Greater than 35 minutes Subjective Date/time seen: 02/12/24 14:20 Interval history: Admission: 88-year-old with an extensive past medical history including but not limited to dementia, chronic kidney disease combined systolic and diastolic heart failure, pulmonary hypertension, TAVR, leadless pacemaker placement, BPH, iron deficiency anemia, rheumatoid arthritis and obstructive sleep apnea who presented to the ER after outpatient labs demonstrated acutely worsening renal function and acute on chronic anemia. The patient had outpatient labs or
[2024-02-12 15:42] LABS: Erythrocyte Sedimentation Rate 117 mm/hr (0-20)
[2024-02-12] MEDS: ACETAMINOPHEN 325 MG TABLET 650 MG PO ×2 (19:05→20:38)
[2024-02-12 19:33] VITALS: BP 107/49; PULSE 78; RESP 20; TEMP 36.6; O2SAT 99
[2024-02-12 20:00] VITALS: O2SAT 99
[2024-02-12] MEDS: MELATONIN 3 MG TABLET PO (20:38)
[2024-02-12] MEDS: ATORVASTATIN 20 MG TABLET PO (20:38)
[2024-02-13 05:36] VITALS: BP 90/40; PULSE 68; RESP 18; TEMP 36.4; O2SAT 100
[2024-02-13 05:52] LABS: Hematocrit 23.8 % (42.0-52.0); Hemoglobin 8.2 g/dL (14.0-18.0); Mean Corpuscular HGB Conc 34.5 g/dl (32-36); Mean Corpuscular Hemoglobin 34.3 pg (26-34); Mean Corpuscular Volume 99.6 fl (80-100); Mean Platelet Volume 9.9 fl (7.4-10.4); Platelet Count Result 110 k/mm3 (150-375); Red Blood Count 2.39 M/mm3 (4.6-6.20); Red Cell Distribution Width 14.3 % (11.5-14.5); White Blood Count 7.7 K/mm3 (4.5-10.0)
[2024-02-13 06:09] LABS: Albumin Level 3.7 g/dL (3.5-5.1); Anion Gap 17 mmol/L (4-12); Calcium 9.1 mg/dL (8.4-10.2); Carbon Dioxide 26 mmol/L (22-30); Chloride 88 mmol/L (98-107); Estimated CRCL calculation 13 ml/min; Estimated Glomerular Filt Rate 11; Glucose 115 mg/dL (65-110); Phosphorus 5.1 mg/dL (2.5-4.5); Potassium 3.6 mmol/L (3.4-5.0); Sodium 131 mmol/L (137-145)
[2024-02-13 06:13] LABS: Alanine Aminotransferase 30 U/L (6-50); Albumin Level 3.7 g/dL (3.5-5.1); Alkaline Phosphatase 84 U/L (38-126); Anion Gap 15 mmol/L (4-12); Aspartate Amino Transferase 28 U/L (17-59); Bilirubin,Total 0.7 mg/dL (0.2-1.3); Carbon Dioxide 26 mmol/L (22-30); Chloride 89 mmol/L (98-107); Estimated CRCL calculation 13 ml/min; Estimated Glomerular Filt Rate 11; Glucose 115 mg/dL (65-110); Potassium 3.6 mmol/L (3.4-5.0); Sodium 130 mmol/L (137-145)
[2024-02-13 06:21] LABS: Blood Urea Nitrogen 140 mg/dL (9-20)
[2024-02-13 07:52] VITALS: O2SAT 97
[2024-02-13 08:33] LABS: Osmolality, Urine 292 mOsm/kg (50-1200)
[2024-02-13] MEDS: CHOLECALCIFEROL 1,000 UNITS TABLET 1000 UNITS PO (08:38)
[2024-02-13] MEDS: TAMSULOSIN HCL 0.4 MG CAPSULE PO (08:39)
[2024-02-13] MEDS: ASPIRIN 81 MG ENTERIC TABLET PO (08:39)
[2024-02-13] MEDS: CALCIUM/VITAMIN D 500 MG/5 MCG (200 I.U.) TABLET PO (08:39)
[2024-02-13] MEDS: FINASTERIDE 5 MG TABLET PO (08:39)
[2024-02-13] MEDS: ASCORBIC ACID 500 MG TABLET PO (08:39)
[2024-02-13] MEDS: CALCIUM ACETATE 667 MG TABLET PO ×3 (08:39→17:21)
[2024-02-13] MEDS: FERROUS SULFATE DRIED 142 MG TABCR PO ×2 (08:39→17:21)
[2024-02-13] MEDS: SODIUM BICARBONATE 8.4% 150 MEQ in WATER, STERILE FOR INJECTION 950 ML 75 MEQ IV CONT (08:40)
[2024-02-13] MEDS: FAMOTIDINE 20 MG TABLET PO ×2 (08:40→20:16)
[2024-02-13] MEDS: MULTIVITAMINS THERAPEUTIC TAB (*BKC) 1 TABLET PO (08:40)
--- NOTE | 2024-02-13 11:04 | PM.PNNEP ---
Progress Note: A&P Assessment and Plan (1) ANDI (acute kidney injury): Code(s): N17.9 - Acute kidney failure, unspecified Status: Acute Assessment and Plan: the patient has acute kidney injury on top of chronic kidney disease.. His creatinine in November was 2.44 with a GFR of 25. In mid January his creatinine was up to 6.9 and then on admission was 5.7 then 5.4 and now 4.9. It is the same today. GFR is only 11. No major uremic symptoms. Has multiple issues and symptoms but has multiple problems that could be associated with these. Family does not want dialysis. Renal sono one cyst, no hydro, and normal size kidneys. Urine 'lytes and FeUrea are nonprerenal. CK normal UA is bland The patient has been getting IV fluids and his numbers improved from 6.9-4.9 but has stabilized there. It is unclear why it is not getting any better. He does have a lot of fluid in his legs chest x-ray is fairly clear. The echocardiogram shows good LV EF but some dilated chambers. With a bland urinalysis it is likely he does not have something inflammatory going on. Just in case I ordered serology. Sed rate is 117. Complements are normal. Renal scan is ordered. Somebody canceled because No IV access . However I talked w ith and he could not sit still on a flat table to get the study done. I decided to cancel the study after all. If we do the scan it shows ATN then it would be reassuring to know that he might get better over the next few weeks but it would not change any of our management. He is going to be discharged tomorrow apparently. I will stop IV fluids since the creatinine has stopped getting better anyway. (2) Paroxysmal atrial fibrillation: Code(s): I48.0 - Paroxysmal atrial fibrillation Status: Acute Assessment and Plan: Heart rate is running 70s to 90s his rhythm is paced. (3) Coronary artery disease: Code(s): I25.10 - Atherosclerotic heart disease of [place] coronary artery without angina pectoris Status: Acute Assessment and Plan: Not having any chest pain. (4) Essential hypertension: Code(s): I10 - Essential (primary) hypertension Status: Acute Assessment and Plan: Blood pressure is under good control (5) Anemia in CKD (chronic kidney disease): Code(s): N18.9 - Chronic kidney disease, unspecified; D63.1 - Anemia in chronic kidney disease Status: Acute Assessment and Plan: hemoglobin is 8.2. no need for epo yet (6) Obstructive sleep apnea treated with BiPAP: Code(s): G47.33 - Obstructive sleep apnea (adult) (pediatric) Status: Acute Assessment and Plan: He uses a BiPAP machine at home (7) Secondary renal hyperparathyroidism: Code(s): N25.81 - Secondary hyperparathyroidism of renal origin Status: Acute Assessment and Plan: P 6. will add calcium (8) Acute hyponatremia: Code(s): E87.1 - Hypo-osmolality and hyponatremia Status: Acute Assessment and Plan: the sodium level is low. it has occasionally been low in the past. This is probably related to the congestive heart failure plus the torsemide. May drink a lot of water as well. diarrhea, PPI may have contributed as well. ACOUSTICAL TILE PATTERNMAKER disease does this as well but he has no symptoms of that right now other than his dementia. Consider CT of the brain if it does not get better soon cancer can do this but he has no active cancer disease. He says he recently had a colonoscopy. Hormonal issues can do this. cortisol is okay. TSH is low, Ft3 is low as well. Ft4 is normal. etiology? Pulmonary disease can do this. Chest x-ray does not show any space-occupying lesions. sodium is better with isotonic fluid and fluid restriction. Subjective Date/time seen: 02/13/24 11:04 Interval history: Stand is feeling okay. Still has some swelling. Exam Narrative: WDWN male in NAD skin no ra
[2024-02-13] MEDS: SODIUM CHLORIDE 0.9% IV 1,000 ML 50 ML IV CONT (12:00)
--- NOTE | 2024-02-13 12:46 | P.PNIM_ITS ---
Progress Note: A&P Assessment and Plan (1) Acute kidney injury superimposed on stage 4 chronic kidney disease: Code(s): N17.9 - Acute kidney failure, unspecified; N18.4 - Chronic kidney disease, stage 4 (severe) Status: Acute (2) Anemia in CKD (chronic kidney disease): Code(s): N18.9 - Chronic kidney disease, unspecified; D63.1 - Anemia in chronic kidney disease Status: Acute (3) Hypo-osmolality and hyponatremia: Code(s): E87.1 - Hypo-osmolality and hyponatremia Status: Acute (4) Obstructive sleep apnea treated with BiPAP: Code(s): G47.33 - Obstructive sleep apnea (adult) (pediatric) Status: Acute (5) Acute on chronic combined systolic and diastolic CHF (congestive heart failure): Code(s): I50.43 - Acute on chronic combined systolic (congestive) and diastolic (congestive) heart failure Status: Acute (6) Gastroesophageal reflux disease: Code(s): K21.9 - Gastro-esophageal reflux disease without esophagitis Status: Acute (7) Benign prostatic hyperplasia: Qualifiers: Lower urinary tract symptom presence: unspecified whether lower urinary tract symptoms present Qualified Code(s): N40.0 - Benign prostatic hyperplasia without lower urinary tract symptoms Code(s): N40.0 - Benign prostatic hyperplasia without lower urinary tract symptoms Status: Acute Plan Acute on chronic renal failure * Stage 4 * Gentle IV hydration * Metolazone discontinued * monitor for fluid overload * Baseline around 2.00 * Cr. 5.7 POA * nephrology consulted * Holding LUISA and diuretic * Avoid nephrotoxic drugs. * S urine Osmo studies pending * Monitor antihypertensive drug therapy. * Avoid NSAIDs. * Routine CMP monitoring GFR. * Monitor electrolytes especially potassium. 02/11/2024: * Renal function improving Cr 4.9 today * continue with gentle hydration * Fluid restriction. 02/12/2024 * Created today currently 4.8. * Continue current IV fluids. * Labs in morning 02/13/2024 * Creatinine today is 4.90 * Nephrology thinks this might be his new baseline * Continue to trend labs * Can most likely discharge if creatinine remains stable. Hypo-osmolality with hyponatremia * NA 120 POA->125 POA-> 129 * Nephrology consulted * Holding diuretics 02/11/2024: * NA127 * Continue with current treatment plan monitor for fluid overload 02/13/2024 * Na today is better 131 * Trend labs * Continue current therapy Acute on chronic combined diastolic and systolic heart failure * History of TAVR/valvular disease * cardiology may be consulted for medication adjustment recently changed medications causing worsening renal function * Diuretics on hold * previous echocardiogram results 2021 * echocardiogram EF of 70% * EKG Paced * chest x-ray Bilateral basal atelectatic changes. Early pneumonia cannot be excluded. Clinical correlation advised. * 2+ BLE edema * Lipid panel, TSH, liver function test. * Daily weight. * fluid restriction HX MERCEDES: Resume BIpap at night HX BPH: Resume Proscar HX GERD: PPI HX HTN: Stable holding ramipril probably will need to discontinued at discharge Code status: Full code per patient DVT prophylaxis: scd Stress ulcer prophylaxis: Protonix 40 daily PT/OT notes: PT/OT Pending Disposition: Patient with admitted for worsening kidney function with renal failure nephrology has been consulted for further evaluation and treatment. PT OT pending
--- NOTE | 2024-02-13 12:46 | PM.IMPN ---
Progress Note: A&P Assessment and Plan (1) Acute kidney injury superimposed on stage 4 chronic kidney disease: Code(s): N17.9 - Acute kidney failure, unspecified; N18.4 - Chronic kidney disease, stage 4 (severe) Status: Acute (2) Anemia in CKD (chronic kidney disease): Code(s): N18.9 - Chronic kidney disease, unspecified; D63.1 - Anemia in chronic kidney disease Status: Acute (3) Hypo-osmolality and hyponatremia: Code(s): E87.1 - Hypo-osmolality and hyponatremia Status: Acute (4) Obstructive sleep apnea treated with BiPAP: Code(s): G47.33 - Obstructive sleep apnea (adult) (pediatric) Status: Acute (5) Acute on chronic combined systolic and diastolic CHF (congestive heart failure): Code(s): I50.43 - Acute on chronic combined systolic (congestive) and diastolic (congestive) heart failure Status: Acute (6) Gastroesophageal reflux disease: Code(s): K21.9 - Gastro-esophageal reflux disease without esophagitis Status: Acute (7) Benign prostatic hyperplasia: Qualifiers: Lower urinary tract symptom presence: unspecified whether lower urinary tract symptoms present Qualified Code(s): N40.0 - Benign prostatic hyperplasia without lower urinary tract symptoms Code(s): N40.0 - Benign prostatic hyperplasia without lower urinary tract symptoms Status: Acute Plan Acute on chronic renal failure Stage 4 Gentle IV hydration Metolazone discontinued monitor for fluid overload Baseline around 2.00 Cr. 5.7 POA nephrology consulted Holding LUISA and diuretic Avoid nephrotoxic drugs. S urine Osmo studies pending Monitor antihypertensive drug therapy. Avoid NSAIDs. Routine CMP monitoring GFR. Monitor electrolytes especially potassium. 02/11/2024: Renal function improving Cr 4.9 today continue with gentle hydration Fluid restriction. 02/12/2024 Created today currently 4.8. Continue current IV fluids. Labs in morning 02/13/2024 Creatinine today is 4.90 Nephrology thinks this might be his new baseline Continue to trend labs Can most likely discharge if creatinine remains stable. Hypo-osmolality with hyponatremia NA 120 POA->125 POA-> 129 Nephrology consulted Holding diuretics 02/11/2024: NA127 Continue with current treatment plan monitor for fluid overload 02/13/2024 Na today is better 131 Trend labs Continue current therapy Acute on chronic combined diastolic and systolic heart failure History of TAVR/valvular disease cardiology may be consulted for medication adjustment recently changed medications causing worsening renal function Diuretics on hold previous echocardiogram results 2021 echocardiogram EF of 70% EKG Paced chest x-ray Bilateral basal atelectatic changes. Early pneumonia cannot be excluded. Clinical correlation advised. 2+ BLE edema Lipid panel, TSH, liver function test. Daily weight. fluid restriction HX MERCEDES: Resume BIpap at night HX BPH: Resume Proscar HX GERD: PPI HX HTN: Stable holding ramipril probably will need to discontinued at discharge Code status: Full code per patient DVT prophylaxis: scd Stress ulcer prophylaxis: Protonix 40 daily PT/OT notes: PT/OT Pending Disposition: Patient with admitted for worsening kidney function with renal failure nephrology has been consulted for further evaluation and treatment. PT OT pending patient currently lives at home with family would like to discharge him to [facility]. CC consulted to assist. Time Spent With Patient Time: 59 minutes Time with patient: Greater than 35 minutes Subjective Date/time seen: 02/13/24 5331 Interval history: Admission: 88-year-old with an extensive past medical history including but not limited to dementia, chronic kidney disease combined systolic and diastolic heart failure, pulmonary hypertension, TAVR, leadless pacema
[2024-02-13 14:07] VITALS: BP 116/99; PULSE 88; RESP 16; TEMP 36.5; O2SAT 99
[2024-02-13 15:45] LABS: Kappa\\Lambda Light Chains 1.42 (0.26-1.65); Lambda Light Chain 54.7 mg/L (5.7-26.3)
[2024-02-13 19:41] VITALS: BP 103/50; PULSE 70; RESP 18; TEMP 36.3; O2SAT 90
[2024-02-13] MEDS: MELATONIN 3 MG TABLET PO (20:16)
[2024-02-13] MEDS: ATORVASTATIN 20 MG TABLET PO (20:16)
[2024-02-13 23:22] VITALS: O2SAT 96
[2024-02-14 05:35] LABS: Hematocrit 22.9 % (42.0-52.0); Hemoglobin 7.4 g/dL (14.0-18.0); Mean Corpuscular HGB Conc 32.3 g/dl (32-36); Mean Corpuscular Hemoglobin 33.5 pg (26-34); Mean Corpuscular Volume 103.6 fl (80-100); Mean Platelet Volume 10.5 fl (7.4-10.4); Platelet Count Result 129 k/mm3 (150-375); Red Blood Count 2.21 M/mm3 (4.6-6.20); Red Cell Distribution Width 14.6 % (11.5-14.5); White Blood Count 7.9 K/mm3 (4.5-10.0)
[2024-02-14 06:00] VITALS: BP 122/64; PULSE 100; RESP 20; TEMP 36.3; O2SAT 98
[2024-02-14 06:01] LABS: Alanine Aminotransferase 28 U/L (6-50); Albumin Level 3.7 g/dL (3.5-5.1); Alkaline Phosphatase 76 U/L (38-126); Anion Gap 16 mmol/L (4-12); Aspartate Amino Transferase 26 U/L (17-59); Bilirubin,Total 0.7 mg/dL (0.2-1.3); Calcium 8.7 mg/dL (8.4-10.2); Carbon Dioxide 24 mmol/L (22-30); Chloride 89 mmol/L (98-107); Estimated CRCL calculation 13 ml/min; Estimated Glomerular Filt Rate 11; Glucose 107 mg/dL (65-110); Phosphorus 5.3 mg/dL (2.5-4.5); Potassium 2.9 mmol/L (3.4-5.0); Sodium 129 mmol/L (137-145)
[2024-02-14 06:10] LABS: Blood Urea Nitrogen 154 mg/dL (9-20)
--- NOTE | 2024-02-14 08:46 | P.PNIM_ITS ---
Progress Note: A&P Assessment and Plan (1) Acute kidney injury superimposed on stage 4 chronic kidney disease: Code(s): N17.9 - Acute kidney failure, unspecified; N18.4 - Chronic kidney disease, stage 4 (severe) Status: Acute (2) Anemia in CKD (chronic kidney disease): Code(s): N18.9 - Chronic kidney disease, unspecified; D63.1 - Anemia in chronic kidney disease Status: Acute (3) Hypo-osmolality and hyponatremia: Code(s): E87.1 - Hypo-osmolality and hyponatremia Status: Acute (4) Obstructive sleep apnea treated with BiPAP: Code(s): G47.33 - Obstructive sleep apnea (adult) (pediatric) Status: Acute (5) Acute on chronic combined systolic and diastolic CHF (congestive heart failure): Code(s): I50.43 - Acute on chronic combined systolic (congestive) and diastolic (congestive) heart failure Status: Acute (6) Gastroesophageal reflux disease: Code(s): K21.9 - Gastro-esophageal reflux disease without esophagitis Status: Acute (7) Benign prostatic hyperplasia: Qualifiers: Lower urinary tract symptom presence: unspecified whether lower urinary tract symptoms present Qualified Code(s): N40.0 - Benign prostatic hyperplasia without lower urinary tract symptoms Code(s): N40.0 - Benign prostatic hyperplasia without lower urinary tract symptoms Status: Acute Plan Acute on chronic renal failure * Stage 4 * Gentle IV hydration * Metolazone discontinued * monitor for fluid overload * Baseline around 2.00 * Cr. 5.7 POA * nephrology consulted * Holding LUISA and diuretic * Avoid nephrotoxic drugs. * S urine Osmo studies pending * Monitor antihypertensive drug therapy. * Avoid NSAIDs. * Routine CMP monitoring GFR. * Monitor electrolytes especially potassium. Appreciate branch chief consultation, stop IV fluid, kidney function is not improving, but creatinine stable Hypo-osmolality with hyponatremia * NA 120 POA->125 POA-> 129 * Nephrology consulted * Holding diuretics Sodium level is on the baseline, possible SIADH and usage of diuretic medication Acute on chronic combined diastolic and systolic heart failure * History of TAVR/valvular disease * cardiology may be consulted for medication adjustment recently changed medications causing worsening renal function * Diuretics on hold * previous echocardiogram results 2021 * echocardiogram EF of 70% * EKG Paced * chest x-ray Bilateral basal atelectatic changes. Early pneumonia cannot be excluded. Clinical correlation advised. * 2+ BLE edema * Lipid panel, TSH, liver function test. * Daily weight. * fluid restriction Chronic anemia Hemoglobin is trending down No obvious bleeding Repeat CBC Hypokalemia Repeated with potassium chloride 40 mEq p.o. x1 and 20 mg IV x1 Repeat BMP HX MERCEDES: Resume BIpap at night HX BPH: Resume Proscar HX GERD: PPI HX HTN: Stable holding ramipril probably will need to discontinued at discharge Code status: Full code per patient DVT prophylaxis: scd Stress ulcer prophylaxis: Protonix 40 daily PT/OT notes: PT/OT Pending Disposition: Patient with admitted for worsening kidney function with renal failure nephrology has been consulted for further evaluation and treatment. PT OT pending patient currently lives at home with family would like to discharge him to [facility]. CC consulted to assist. Subjective Date/time seen: 02/14/24 08:46
--- NOTE | 2024-02-14 08:46 | PM.IMPN ---
Progress Note: A&P Assessment and Plan (1) Acute kidney injury superimposed on stage 4 chronic kidney disease: Code(s): N17.9 - Acute kidney failure, unspecified; N18.4 - Chronic kidney disease, stage 4 (severe) Status: Acute (2) Anemia in CKD (chronic kidney disease): Code(s): N18.9 - Chronic kidney disease, unspecified; D63.1 - Anemia in chronic kidney disease Status: Acute (3) Hypo-osmolality and hyponatremia: Code(s): E87.1 - Hypo-osmolality and hyponatremia Status: Acute (4) Obstructive sleep apnea treated with BiPAP: Code(s): G47.33 - Obstructive sleep apnea (adult) (pediatric) Status: Acute (5) Acute on chronic combined systolic and diastolic CHF (congestive heart failure): Code(s): I50.43 - Acute on chronic combined systolic (congestive) and diastolic (congestive) heart failure Status: Acute (6) Gastroesophageal reflux disease: Code(s): K21.9 - Gastro-esophageal reflux disease without esophagitis Status: Acute (7) Benign prostatic hyperplasia: Qualifiers: Lower urinary tract symptom presence: unspecified whether lower urinary tract symptoms present Qualified Code(s): N40.0 - Benign prostatic hyperplasia without lower urinary tract symptoms Code(s): N40.0 - Benign prostatic hyperplasia without lower urinary tract symptoms Status: Acute Plan Acute on chronic renal failure Stage 4 Gentle IV hydration Metolazone discontinued monitor for fluid overload Baseline around 2.00 Cr. 5.7 POA nephrology consulted Holding LUISA and diuretic Avoid nephrotoxic drugs. S urine Osmo studies pending Monitor antihypertensive drug therapy. Avoid NSAIDs. Routine CMP monitoring GFR. Monitor electrolytes especially potassium. Appreciate clinical staff educator consultation, stop IV fluid, kidney function is not improving, but creatinine stable Hypo-osmolality with hyponatremia NA 120 POA->125 POA-> 129 Nephrology consulted Holding diuretics Sodium level is on the baseline, possible SIADH and usage of diuretic medication Acute on chronic combined diastolic and systolic heart failure History of TAVR/valvular disease cardiology may be consulted for medication adjustment recently changed medications causing worsening renal function Diuretics on hold previous echocardiogram results 2021 echocardiogram EF of 70% EKG Paced chest x-ray Bilateral basal atelectatic changes. Early pneumonia cannot be excluded. Clinical correlation advised. 2+ BLE edema Lipid panel, TSH, liver function test. Daily weight. fluid restriction Chronic anemia Hemoglobin is trending down No obvious bleeding Repeat CBC Hypokalemia Repeated with potassium chloride 40 mEq p.o. x1 and 20 mg IV x1 Repeat BMP HX MERCEDES: Resume BIpap at night HX BPH: Resume Proscar HX GERD: PPI HX HTN: Stable holding ramipril probably will need to discontinued at discharge Code status: Full code per patient DVT prophylaxis: scd Stress ulcer prophylaxis: Protonix 40 daily PT/OT notes: PT/OT Pending Disposition: Patient with admitted for worsening kidney function with renal failure nephrology has been consulted for further evaluation and treatment. PT OT pending patient currently lives at home with family would like to discharge him to [facility]. CC consulted to assist. Subjective Date/time seen: 02/14/24 08:46 Interval history: I saw examined patient today in presents the patient 5, patient denies shortness breath, dysuria, nausea vomiting black stools. Labs reviewed, hemoglobin trending down, potassium 2.9 Exam Narrative: Physical Exam: GENERAL: Alert and oriented x 2. No acute distress. EYES: EOMI. No scleral icterus. PERRLA. HEENT: Moist mucous membranes. LUNGS: Diminished bilaterally lower lobes. Slight muscle accessory use CARDIOVASCULAR: Regular rate and rhythm. No murm
[2024-02-14] MEDS: ASPIRIN 81 MG ENTERIC TABLET PO (09:27)
[2024-02-14] MEDS: CHOLECALCIFEROL 1,000 UNITS TABLET 1000 UNITS PO (09:27)
[2024-02-14] MEDS: FAMOTIDINE 20 MG TABLET PO ×2 (09:28→19:59)
[2024-02-14] MEDS: CALCIUM/VITAMIN D 500 MG/5 MCG (200 I.U.) TABLET PO (09:28)
[2024-02-14] MEDS: FINASTERIDE 5 MG TABLET PO (09:28)
[2024-02-14] MEDS: CALCIUM ACETATE 667 MG TABLET PO ×3 (09:28→17:33)
[2024-02-14] MEDS: FERROUS SULFATE DRIED 142 MG TABCR PO ×2 (09:29→17:33)
[2024-02-14] MEDS: MULTIVITAMINS THERAPEUTIC TAB (*BKC) 1 TABLET PO (09:29)
[2024-02-14] MEDS: ASCORBIC ACID 500 MG TABLET PO (09:29)
[2024-02-14] MEDS: TAMSULOSIN HCL 0.4 MG CAPSULE PO (09:29)
--- NOTE | 2024-02-14 10:04 | PM.PNNEP ---
Progress Note: A&P Assessment and Plan (1) ANDI (acute kidney injury): Code(s): N17.9 - Acute kidney failure, unspecified Status: Acute Assessment and Plan: the patient has acute kidney injury on top of chronic kidney disease.. His creatinine in November was 2.44 with a GFR of 25. In mid January his creatinine was up to 6.9 and then on admission was 5.7 then 5.4 and now 4.9. It is the same today. GFR is only 11. No major uremic symptoms. Has multiple issues and symptoms but has multiple problems that could be associated with these. Family does not want dialysis. Renal sono one cyst, no hydro, and normal size kidneys. Urine 'lytes and FeUrea are nonprerenal. CK normal UA is bland The patient is off the IV fluids. He is eating some. Potassium is down. He is going to get 40 mEq of potassium chloride. Creatinine is stable at 5 Okay for discharge from the kidney standpoint if okay from anemia standpoint. Discussed at length with Dr. Wesley. (2) Paroxysmal atrial fibrillation: Code(s): I48.0 - Paroxysmal atrial fibrillation Status: Acute Assessment and Plan: Heart rate is running 68-100 his rhythm is paced. (3) Coronary artery disease: Code(s): I25.10 - Atherosclerotic heart disease of [place] coronary artery without angina pectoris Status: Acute Assessment and Plan: Not having any chest pain. (4) Essential hypertension: Code(s): I10 - Essential (primary) hypertension Status: Acute Assessment and Plan: Blood pressure is under good control (5) Anemia in CKD (chronic kidney disease): Code(s): N18.9 - Chronic kidney disease, unspecified; D63.1 - Anemia in chronic kidney disease Status: Acute Assessment and Plan: hemoglobin is 7.4. This is a bit down. No black or bloody stools. He is on oral iron. Will give a shot of EPO. He might need an outpatient consult with Dr. Ruelas (6) Obstructive sleep apnea treated with BiPAP: Code(s): G47.33 - Obstructive sleep apnea (adult) (pediatric) Status: Acute Assessment and Plan: He uses a BiPAP machine at home (7) Secondary renal hyperparathyroidism: Code(s): N25.81 - Secondary hyperparathyroidism of renal origin Status: Acute Assessment and Plan: P 6. will add calcium binders (8) Acute hyponatremia: Code(s): E87.1 - Hypo-osmolality and hyponatremia Status: Acute Assessment and Plan: the sodium level is low. it has occasionally been low in the past. This is probably related to the congestive heart failure plus the torsemide. May drink a lot of water as well. diarrhea, PPI may have contributed as well. 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 Consider CT of the brain if it does not get better soon cancer can do this but he has no active cancer disease. He says he recently had a colonoscopy. Hormonal issues can do this. cortisol is okay. TSH is low, Ft3 is low as well. Ft4 is normal. etiology? Pulmonary disease can do this. Chest x-ray does not show any space-occupying lesions. Sodium is stable on fluid restriction alone. Subjective Date/time seen: 02/14/24 10:04 Interval history: Stand feels okay today. He sitting up in a chair. is sitting next to him. They are eager for discharge Exam Narrative: WDWN male in NAD skin no rash or subQ nodules head ncat lungs clear cor reg no rub or gallop abd BS+ nontender and soft ext 2+ unchanged bilateral edema. Objective Data Vital Signs Vital Signs: Vital Signs - 24 hr 02/13/24 14:07 02/13/24 19:41 02/13/24 20:00 Temperature 97.7 F 97.3 F L Pulse Rate 88 70 Respiratory Rate 16 18 Blood Pressure 116/99 H 103/50 L Pulse Oximetry 99 90 Oxygen Delivery Room Air 02/13/24 23:22 02/14/24 06:00 Temperature 97.4 F L Pulse Rate 100 Respiratory Rate 2
[2024-02-14] MEDS: POTASSIUM CHLORIDE 20 MEQ ER TABLET 40 MEQ PO (10:20)
[2024-02-14] MEDS: KCL 20 MEQ/SW 100 ML 100 ML 50 MEQ IVPB (10:21)
[2024-02-14] MEDS: EPOETIN ALFA-EPBX 10,000 UNITS/ML VIAL 10000 UNITS SUB-Q (12:25)
[2024-02-14 14:00] VITALS: BP 114/50; PULSE 75; RESP 20; TEMP 36.6; O2SAT 95
[2024-02-14 14:33] LABS: Complement Total CH50 31 U/mL (31-60)
--- NOTE | 2024-02-14 14:43 | PM.DS ---
DS: Summary Time Spent with Patient Time attestation: Total time spent providing and/or coordinating discharge services: DS: Data Data Completed and Pending Labs on day of discharge: Labs from last 24 hours 02/14/24 02/14/24 02/12/24 14:23 04:57 05:01 WBC 7.9 RBC 2.21 L Hgb 7.4 L Hct 22.9 L MCV 103.6 H MCH 33.5 MCHC 32.3 RDW 14.6 H Plt Count 129 L MPV 10.5 H Sodium Pending 129 L Potassium Pending 2.9 L Chloride Pending 89 L Carbon Dioxide Pending 24 Anion Gap Pending 16 H BUN Pending 154 H D Creatinine Pending 5.00 H Estim Creat Clear Calc Pending 13 Estimated GFR Pending 11 L Glucose Pending 107 Calcium Pending 8.7 Phosphorus 5.3 H Total Bilirubin 0.7 AST 26 ALT 28 Alkaline Phosphatase 76 Total Protein 7.0 Albumin 3.7 MARYANNE Screen Negative Tot Complement (CH50) 31 [place]/Lambda Ratio 1.42 Free [place] Light Chains 77.6 H Free [place] Light Chain 54.7 H Discharge Plan Discharge Attending physician on discharge: Joanie Henry Consulting providers: Dom Jacobsen Discharging Clinician: Joanie Henry Anticipated Discharge Date/Time: 02/14/24 15:17 Patient Disposition: NH Shelter/Asst Living Activity: as tolerated Diet: renal Discharge Instructions: Per Care Coordination: Patient would benefit from OP PT/OT eval and treat 2-3 times per week. Please evaluate and provide PT/OT for endurance and increased mobility after this hospitalization. Patient Instructions: Antibiotic Form, Heart Failure (DC) Stand Alone Forms: General Discharge Information Follow-up/Referrals: Dom Jacobsen MD [Physician] - (Patient needs to see photo optics technician at scheduled appointment) Lorraine Almodovar DO [Primary Care Provider] - (Patient needs to see primary care doctor in 1 week) Discharge Medications: New calcium acetate(phosphat bind) 667 mg Tablet 667 mg PO TID Qty: 90 0RF famotidine 20 mg Tablet 20 mg PO Q12HR Qty: 60 0RF Continued cholecalciferol (vitamin D3) 25 mcg (1,000 unit) capsule 1,000 unit PO DAILY Slow Fe 142 mg (45 mg iron) tablet extended release 45 mg PO BID aspirin [Adult Low Dose Aspirin] 81 mg tablet,delayed release (DR/EC) 81 mg PO DAILY potassium chloride [Klor-Con] 20 mEq packet 20 meq PO DAILY tamsulosin 0.4 mg capsule 0.4 mg PO DAILY Dose Instruction: TAKE ONE CAPSULE BY MOUTH ONCE DAILY Rx Instructions: TAKE ONE CAPSULE BY MOUTH ONCE DAILY ascorbic acid (vitamin C) 500 mg Tablet 500 mg PO DAILY atorvastatin 20 mg tablet 20 mg PO DAILY Rx Instructions: TAKE 1 TABLET BY MOUTH EVERY DAY AT BEDTIME finasteride 5 mg tablet 5 mg PO DAILY Rx Instructions: TAKE ONE TABLET BY MOUTH ONCE DAILY multivitamin Tablet 1 tablet PO DAILY Discontinued calcium carbonate-vitamin D3 600 mg(1,500mg) -400 unit capsule 1 cap PO DAILY torsemide 20 mg tablet 40 mg PO BID esomeprazole magnesium 40 mg capsule,delayed release(DR/EC) 40 mg PO DAILY Rx Instructions: TAKE 1 CAPSULE BY MOUTH EVERY DAY ramipril 10 mg capsule 10 mg PO DAILY Rx Instructions: TAKE 1 CAPSULE BY MOUTH EVERY DAY Date of admission: 02/10/24 07:37 Primary Care Provider: Lorraine Almodovar Admitting Provider: Sugey Chiang Attending physician on admission: Chayito Mendez Condition: Serious
[2024-02-14 15:13] LABS: Anion Gap 16 mmol/L (4-12); Carbon Dioxide 24 mmol/L (22-30); Chloride 90 mmol/L (98-107); Estimated CRCL calculation 13 ml/min; Estimated Glomerular Filt Rate 10; Glucose 108 mg/dL (65-110); Potassium 3.7 mmol/L (3.4-5.0); Sodium 130 mmol/L (137-145)
[2024-02-14 15:31] LABS: Blood Urea Nitrogen 155 mg/dL (9-20)
[2024-02-14 15:40] LABS: Basophils Percent Auto 0.2 % (0.2-1.2); Eosinophils Absolute Auto 0.1 K/mm3 (0-0.3); Eosinophils Percent Auto 0.9 % (0-4.4); Hematocrit 23.7 % (42.0-52.0); Immature Granulocyte Absolute 0.07 K/mm3 (0.00-0.031); Immature Granulocyte Percent A 0.8 % (0-0.5); Lymphocytes Percent Auto 3.4 % (18.3-44.2); Mean Corpuscular HGB Conc 33.8 g/dl (32-36); Mean Corpuscular Hemoglobin 34.5 pg (26-34); Mean Corpuscular Volume 102.2 fl (80-100); Mean Platelet Volume 10.5 fl (7.4-10.4); Monocytes Absolute Auto 0.7 K/mm3 (0.1-0.6); Monocytes Percent Auto 8.4 % (2.6-8.5); Neutrophils Absolute Auto 7.6 K/mm3 (1.3-6.7); Neutrophils Percent Auto 86.3 % (45.5-73.1); Nucleated Red Blood Cells Perc 0.2 % (0.0-0.2); Platelet Count Result 127 k/mm3 (150-375); Red Blood Count 2.32 M/mm3 (4.6-6.20); Red Cell Distribution Width 14.6 % (11.5-14.5); White Blood Count 8.8 K/mm3 (4.5-10.0)
[2024-02-14] MEDS: ATORVASTATIN 20 MG TABLET PO (19:59)
[2024-02-14] MEDS: MELATONIN 3 MG TABLET PO (19:59)
[2024-02-14 20:09] VITALS: BP 138/99; PULSE 41; RESP 18; TEMP 36.8; O2SAT 96
[2024-02-14 22:35] VITALS: PULSE 47; O2SAT 96
[2024-02-15 02:45] VITALS: PULSE 59; O2SAT 95
[2024-02-15 05:12] VITALS: BP 115/49; PULSE 66; RESP 18; TEMP 36.8; O2SAT 92
[2024-02-15 05:57] LABS: Hematocrit 23.6 % (42.0-52.0); Hemoglobin 7.9 g/dL (14.0-18.0); Mean Corpuscular HGB Conc 33.5 g/dl (32-36); Mean Corpuscular Hemoglobin 34.3 pg (26-34); Mean Corpuscular Volume 102.6 fl (80-100); Mean Platelet Volume 10.3 fl (7.4-10.4); Platelet Count Result 130 k/mm3 (150-375); Red Cell Distribution Width 14.8 % (11.5-14.5); White Blood Count 7.7 K/mm3 (4.5-10.0)
[2024-02-15 06:25] LABS: Alanine Aminotransferase 27 U/L (6-50); Albumin Level 3.7 g/dL (3.5-5.1); Alkaline Phosphatase 86 U/L (38-126); Anion Gap 19 mmol/L (4-12); Aspartate Amino Transferase 27 U/L (17-59); Bilirubin,Total 0.6 mg/dL (0.2-1.3); Calcium 8.9 mg/dL (8.4-10.2); Carbon Dioxide 22 mmol/L (22-30); Chloride 89 mmol/L (98-107); Estimated CRCL calculation 13 ml/min; Estimated Glomerular Filt Rate 10; Glucose 108 mg/dL (65-110); Potassium 3.1 mmol/L (3.4-5.0); Sodium 130 mmol/L (137-145)
[2024-02-15 06:38] LABS: Blood Urea Nitrogen 159 mg/dL (9-20)
--- NOTE | 2024-02-15 08:21 | P.PNIM_ITS ---
Progress Note: A&P Assessment and Plan (1) Acute kidney injury superimposed on stage 4 chronic kidney disease: Code(s): N17.9 - Acute kidney failure, unspecified; N18.4 - Chronic kidney disease, stage 4 (severe) Status: Acute (2) Anemia in CKD (chronic kidney disease): Code(s): N18.9 - Chronic kidney disease, unspecified; D63.1 - Anemia in chronic kidney disease Status: Acute (3) Hypo-osmolality and hyponatremia: Code(s): E87.1 - Hypo-osmolality and hyponatremia Status: Acute (4) Obstructive sleep apnea treated with BiPAP: Code(s): G47.33 - Obstructive sleep apnea (adult) (pediatric) Status: Acute (5) Acute on chronic combined systolic and diastolic CHF (congestive heart failure): Code(s): I50.43 - Acute on chronic combined systolic (congestive) and diastolic (congestive) heart failure Status: Acute (6) Gastroesophageal reflux disease: Code(s): K21.9 - Gastro-esophageal reflux disease without esophagitis Status: Acute (7) Benign prostatic hyperplasia: Qualifiers: Lower urinary tract symptom presence: unspecified whether lower urinary tract symptoms present Qualified Code(s): N40.0 - Benign prostatic hyperplasia without lower urinary tract symptoms Code(s): N40.0 - Benign prostatic hyperplasia without lower urinary tract symptoms Status: Acute Plan Acute on chronic renal failure * Stage 4 * Gentle IV hydration * Metolazone discontinued * monitor for fluid overload * Baseline around 2.00 * Cr. 5.7 POA * nephrology consulted * Holding LUISA and diuretic * Avoid nephrotoxic drugs. * S urine Osmo studies pending * Monitor antihypertensive drug therapy. * Avoid NSAIDs. * Routine CMP monitoring GFR. * Monitor electrolytes especially potassium. Appreciate client insights consultant consultation, stop IV fluid, kidney function is not improving, but creatinine stable Hypo-osmolality with hyponatremia * NA 120 POA->125 POA-> 129 * Nephrology consulted * Holding diuretics Sodium level is on the baseline, possible SIADH and usage of diuretic medication Acute on chronic combined diastolic and systolic heart failure * History of TAVR/valvular disease * cardiology may be consulted for medication adjustment recently changed medications causing worsening renal function * Diuretics on hold * previous echocardiogram results 2021 * echocardiogram EF of 70% * EKG Paced * chest x-ray Bilateral basal atelectatic changes. Early pneumonia cannot be excluded. Clinical correlation advised. * 2+ BLE edema * Lipid panel, TSH, liver function test. * Daily weight. * fluid restriction Chronic anemia Hemoglobin is trending down No obvious bleeding Repeat CBC Hypokalemia Repeated with potassium chloride 40 mEq p.o. x1 and 20 mg IV x1 Repeat BMP HX MERCEDES: Resume BIpap at night HX BPH: Resume Proscar HX GERD: PPI HX HTN: Stable holding ramipril probably will need to discontinued at discharge Code status: Full code per patient DVT prophylaxis: scd Stress ulcer prophylaxis: Protonix 40 daily PT/OT notes: PT/OT Pending [facility] CC consulted to assist. Waiting for placement Subjective Date/time seen: 02/15/24 08:21 Interval history: I saw examined patient today, no new issue even over the night, patient denies shortness breath, dysuria, nausea vomiting black stools. Labs reviewed, hemoglobin is stable,
--- NOTE | 2024-02-15 08:21 | PM.IMPN ---
Progress Note: A&P Assessment and Plan (1) Acute kidney injury superimposed on stage 4 chronic kidney disease: Code(s): N17.9 - Acute kidney failure, unspecified; N18.4 - Chronic kidney disease, stage 4 (severe) Status: Acute (2) Anemia in CKD (chronic kidney disease): Code(s): N18.9 - Chronic kidney disease, unspecified; D63.1 - Anemia in chronic kidney disease Status: Acute (3) Hypo-osmolality and hyponatremia: Code(s): E87.1 - Hypo-osmolality and hyponatremia Status: Acute (4) Obstructive sleep apnea treated with BiPAP: Code(s): G47.33 - Obstructive sleep apnea (adult) (pediatric) Status: Acute (5) Acute on chronic combined systolic and diastolic CHF (congestive heart failure): Code(s): I50.43 - Acute on chronic combined systolic (congestive) and diastolic (congestive) heart failure Status: Acute (6) Gastroesophageal reflux disease: Code(s): K21.9 - Gastro-esophageal reflux disease without esophagitis Status: Acute (7) Benign prostatic hyperplasia: Qualifiers: Lower urinary tract symptom presence: unspecified whether lower urinary tract symptoms present Qualified Code(s): N40.0 - Benign prostatic hyperplasia without lower urinary tract symptoms Code(s): N40.0 - Benign prostatic hyperplasia without lower urinary tract symptoms Status: Acute Plan Acute on chronic renal failure Stage 4 Gentle IV hydration Metolazone discontinued monitor for fluid overload Baseline around 2.00 Cr. 5.7 POA nephrology consulted Holding LUISA and diuretic Avoid nephrotoxic drugs. S urine Osmo studies pending Monitor antihypertensive drug therapy. Avoid NSAIDs. Routine CMP monitoring GFR. Monitor electrolytes especially potassium. Appreciate vocational rehabilitation counselor consultation, stop IV fluid, kidney function is not improving, but creatinine stable Hypo-osmolality with hyponatremia NA 120 POA->125 POA-> 129 Nephrology consulted Holding diuretics Sodium level is on the baseline, possible SIADH and usage of diuretic medication Acute on chronic combined diastolic and systolic heart failure History of TAVR/valvular disease cardiology may be consulted for medication adjustment recently changed medications causing worsening renal function Diuretics on hold previous echocardiogram results 2021 echocardiogram EF of 70% EKG Paced chest x-ray Bilateral basal atelectatic changes. Early pneumonia cannot be excluded. Clinical correlation advised. 2+ BLE edema Lipid panel, TSH, liver function test. Daily weight. fluid restriction Chronic anemia Hemoglobin is trending down No obvious bleeding Repeat CBC Hypokalemia Repeated with potassium chloride 40 mEq p.o. x1 and 20 mg IV x1 Repeat BMP HX MERCEDES: Resume BIpap at night HX BPH: Resume Proscar HX GERD: PPI HX HTN: Stable holding ramipril probably will need to discontinued at discharge Code status: Full code per patient DVT prophylaxis: scd Stress ulcer prophylaxis: Protonix 40 daily PT/OT notes: PT/OT Pending Plan to discharge him to [facility]. CC consulted to assist. Waiting for placement Subjective Date/time seen: 02/15/24 08:21 Interval history: I saw examined patient today, no new issue even over the night, patient denies shortness breath, dysuria, nausea vomiting black stools. Labs reviewed, hemoglobin is stable, hypokalemia partially corrected Exam Narrative: Physical Exam: GENERAL: Alert and oriented x 2. No acute distress. EYES: EOMI. No scleral icterus. PERRLA. HEENT: Moist mucous membranes. LUNGS: Diminished bilaterally lower lobes. Slight muscle accessory use CARDIOVASCULAR: Regular rate and rhythm. No murmur. No JVD. S1-S2 ABDOMEN: Soft, non tenderness and non-distended. No palpable masses. EXTREMITIES: 2+ BLE edema. Non-tender SKIN: No rashes or lesions. Skin warm, dry. SUNNI
[2024-02-15] MEDS: ASCORBIC ACID 500 MG TABLET PO (08:59)
[2024-02-15] MEDS: CHOLECALCIFEROL 1,000 UNITS TABLET 1000 UNITS PO (08:59)
[2024-02-15] MEDS: ASPIRIN 81 MG ENTERIC TABLET PO (08:59)
[2024-02-15] MEDS: CALCIUM ACETATE 667 MG TABLET PO ×3 (08:59→17:12)
[2024-02-15] MEDS: FAMOTIDINE 20 MG TABLET PO ×2 (08:59→19:52)
[2024-02-15] MEDS: CALCIUM/VITAMIN D 500 MG/5 MCG (200 I.U.) TABLET PO (08:59)
[2024-02-15] MEDS: TAMSULOSIN HCL 0.4 MG CAPSULE PO (09:00)
[2024-02-15] MEDS: FERROUS SULFATE DRIED 142 MG TABCR PO ×2 (09:00→17:12)
[2024-02-15] MEDS: SODIUM CHLORIDE 500 MG TABLET 1000 MG PO ×3 (09:00→17:12)
[2024-02-15] MEDS: FINASTERIDE 5 MG TABLET PO (09:00)
[2024-02-15] MEDS: MULTIVITAMINS THERAPEUTIC TAB (*BKC) 1 TABLET PO (09:00)
[2024-02-15] MEDS: POTASSIUM CHLORIDE 20 MEQ PACKET (FOR LIQUID) 40 MEQ PO ×2 (09:01→17:13)
--- NOTE | 2024-02-15 09:29 | PM.PNNEP ---
Progress Note: A&P Assessment and Plan (1) ANDI (acute kidney injury): Code(s): N17.9 - Acute kidney failure, unspecified Status: Acute Assessment and Plan: the patient has acute kidney injury on top of chronic kidney disease.. His creatinine in November was 2.44 with a GFR of 25. In mid January his creatinine was up to 6.9 and then on admission was 5.7 then 5.4 and now 4.9. It is the same today. GFR is only 11. No major uremic symptoms. Has multiple issues and symptoms but has multiple problems that could be associated with these. Family does not want dialysis. Renal sono one cyst, no hydro, and normal size kidneys. Urine 'lytes and FeUrea are nonprerenal. CK normal UA is bland The patient is off the IV fluids. Swelling is about the same. The creatinine is a little higher. It cristo from 5-5.3. He is not on any medications that would do this. He is eating and drinking okay. More fluids which is making more swollen +/- short of breath. Will continue the same therapy Generally the creatinine can bounce around a little bit. Will check again tomorrow for trending. (2) Paroxysmal atrial fibrillation: Code(s): I48.0 - Paroxysmal atrial fibrillation Status: Acute Assessment and Plan: Heart rate is running 68-100 (3) Coronary artery disease: Code(s): I25.10 - Atherosclerotic heart disease of [place] coronary artery without angina pectoris Status: Acute Assessment and Plan: Not having any chest pain. (4) Essential hypertension: Code(s): I10 - Essential (primary) hypertension Status: Acute Assessment and Plan: Blood pressure is under good control (5) Anemia in CKD (chronic kidney disease): Code(s): N18.9 - Chronic kidney disease, unspecified; D63.1 - Anemia in chronic kidney disease Status: Acute Assessment and Plan: hemoglobin is 7.4. This is a bit down. No black or bloody stools. He is on oral iron. He had some EPO yesterday and Will give a shot of EPO tomorrow as well He might need an outpatient consult with Dr. Ruelas (6) Obstructive sleep apnea treated with BiPAP: Code(s): G47.33 - Obstructive sleep apnea (adult) (pediatric) Status: Acute Assessment and Plan: He uses a BiPAP machine at home (7) Secondary renal hyperparathyroidism: Code(s): N25.81 - Secondary hyperparathyroidism of renal origin Status: Acute Assessment and Plan: P down to 5.3 On calcium binders (8) Acute hyponatremia: Code(s): E87.1 - Hypo-osmolality and hyponatremia Status: Acute Assessment and Plan: the sodium level is low. it has occasionally been low in the past. This is probably related to the congestive heart failure plus the torsemide. May drink a lot of water as well. diarrhea, PPI may have contributed as well. DOOR PANELER disease does this as well but he has no symptoms of that right now other than his dementia. Consider CT of the brain if it does not get better soon cancer can do this but he has no active cancer disease. He says he recently had a colonoscopy. Hormonal issues can do this. cortisol is okay. TSH is low, Ft3 is low as well. Ft4 is normal. etiology? Pulmonary disease can do this. Chest x-ray does not show any space-occupying lesions. Sodium is stable on fluid restriction alone. Subjective Date/time seen: 02/15/24 09:29 Interval history: in the room. Patient sitting up in a chair comfortably. He has some swelling. He denies shortness of breath. He is not on any oxygen. Eating fair Exam Narrative: WDWN male in NAD skin no rash or subQ nodules head ncat lungs clear cor reg no rub or gallop abd BS+ nontender and soft ext 2+ unchanged bilateral edema. Objective Data Vital Signs Vital Signs: Vital Signs - 24 hr 02/14/24 14:00 02/14/24 20:09 02/14/24 20:00 Temperature 97.9 F 98.3 F Pulse Rate 75 41
[2024-02-15 14:00] VITALS: BP 122/58; PULSE 68; RESP 19; TEMP 36.6; O2SAT 96
[2024-02-15] MEDS: MELATONIN 3 MG TABLET PO (19:52)
[2024-02-15] MEDS: ATORVASTATIN 20 MG TABLET PO (19:52)
[2024-02-15 20:07] VITALS: BP 111/63; PULSE 71; RESP 18; TEMP 36.7; O2SAT 98
[2024-02-15 21:23] VITALS: O2SAT 98
[2024-02-15 22:11] LABS: IFOB Positive Control Positive; Immunochemical Fecal Occult Bl Positive (N)
[2024-02-15 22:45] VITALS: PULSE 71; O2SAT 97
[2024-02-16 05:15] VITALS: BP 107/50; PULSE 73; RESP 18; TEMP 37; O2SAT 100
[2024-02-16 05:32] LABS: Hematocrit 24.1 % (42.0-52.0); Mean Corpuscular HGB Conc 33.2 g/dl (32-36); Mean Corpuscular Hemoglobin 33.9 pg (26-34); Mean Corpuscular Volume 102.1 fl (80-100); Mean Platelet Volume 9.5 fl (7.4-10.4); Platelet Count Result 140 k/mm3 (150-375); Red Blood Count 2.36 M/mm3 (4.6-6.20); Red Cell Distribution Width 14.7 % (11.5-14.5); White Blood Count 7.2 K/mm3 (4.5-10.0)
[2024-02-16 05:44] LABS: Anion Gap 15 mmol/L (4-12); Bilirubin,Total 0.7 mg/dL (0.2-1.3); Calcium 9.3 mg/dL (8.4-10.2); Carbon Dioxide 23 mmol/L (22-30); Chloride 93 mmol/L (98-107); Estimated CRCL calculation 12 ml/min; Estimated Glomerular Filt Rate 10; Glucose 105 mg/dL (65-110); Phosphorus 4.4 mg/dL (2.5-4.5); Potassium 3.6 mmol/L (3.4-5.0); Sodium 131 mmol/L (137-145)
[2024-02-16 05:45] LABS: Alanine Aminotransferase 30 U/L (6-50); Albumin Level 3.7 g/dL (3.5-5.1); Alkaline Phosphatase 94 U/L (38-126); Aspartate Amino Transferase 27 U/L (17-59)
[2024-02-16 05:56] LABS: Blood Urea Nitrogen 159 mg/dL (9-20)
--- NOTE | 2024-02-16 08:03 | P.PNIM_ITS ---
Progress Note: A&P Assessment and Plan (1) Acute kidney injury superimposed on stage 4 chronic kidney disease: Code(s): N17.9 - Acute kidney failure, unspecified; N18.4 - Chronic kidney disease, stage 4 (severe) Status: Acute (2) Anemia in CKD (chronic kidney disease): Code(s): N18.9 - Chronic kidney disease, unspecified; D63.1 - Anemia in chronic kidney disease Status: Acute (3) Hypo-osmolality and hyponatremia: Code(s): E87.1 - Hypo-osmolality and hyponatremia Status: Acute (4) Obstructive sleep apnea treated with BiPAP: Code(s): G47.33 - Obstructive sleep apnea (adult) (pediatric) Status: Acute (5) Acute on chronic combined systolic and diastolic CHF (congestive heart failure): Code(s): I50.43 - Acute on chronic combined systolic (congestive) and diastolic (congestive) heart failure Status: Acute (6) Gastroesophageal reflux disease: Code(s): K21.9 - Gastro-esophageal reflux disease without esophagitis Status: Acute (7) Benign prostatic hyperplasia: Qualifiers: Lower urinary tract symptom presence: unspecified whether lower urinary tract symptoms present Qualified Code(s): N40.0 - Benign prostatic hyperplasia without lower urinary tract symptoms Code(s): N40.0 - Benign prostatic hyperplasia without lower urinary tract symptoms Status: Acute Plan Acute on chronic renal failure * Stage 4 * Gentle IV hydration * Metolazone discontinued * monitor for fluid overload * Baseline around 2.00 * Cr. 5.7 POA * nephrology consulted * Holding LUISA and diuretic * Avoid nephrotoxic drugs. * S urine Osmo studies pending * Monitor antihypertensive drug therapy. * Avoid NSAIDs. * Routine CMP monitoring GFR. * Monitor electrolytes especially potassium. Appreciate coordinating producer consultation, stop IV fluid, kidney function is not improving, but creatinine stable Hypo-osmolality with hyponatremia * NA 120 POA->125 POA-> 129 * Nephrology consulted * Holding diuretics Sodium level is on the baseline, possible SIADH and usage of diuretic medication Acute on chronic combined diastolic and systolic heart failure * History of TAVR/valvular disease * cardiology may be consulted for medication adjustment recently changed medications causing worsening renal function * Diuretics on hold * previous echocardiogram results 2021 * echocardiogram EF of 70% * EKG Paced * chest x-ray Bilateral basal atelectatic changes. Early pneumonia cannot be excluded. Clinical correlation advised. * 2+ BLE edema * Lipid panel, TSH, liver function test. * Daily weight. * fluid restriction Chronic anemia Hemoglobin is trending down No obvious bleeding Repeat CBC Hypokalemia Repeated with potassium chloride 40 mEq p.o. x1 and 20 mg IV x1 Repeat BMP HX MERCEDES: Resume BIpap at night HX BPH: Resume Proscar HX GERD: PPI HX HTN: Stable holding ramipril probably will need to discontinued at discharge Code status: Full code per patient DVT prophylaxis: scd Stress ulcer prophylaxis: Protonix 40 daily PT/OT notes: PT/OT Pending Plan to discharge him to [facility]. CC consulted to assist. Waiting for placement pt considers hospice care placement Subjective Date/time seen: 02/16/24 08:03 Interval history: I saw examined patient today, no new issue even over the night, patient denies shortness breath, dysuria, nausea vomiting thiago
--- NOTE | 2024-02-16 08:03 | PM.IMPN ---
Progress Note: A&P Assessment and Plan (1) Acute kidney injury superimposed on stage 4 chronic kidney disease: Code(s): N17.9 - Acute kidney failure, unspecified; N18.4 - Chronic kidney disease, stage 4 (severe) Status: Acute (2) Anemia in CKD (chronic kidney disease): Code(s): N18.9 - Chronic kidney disease, unspecified; D63.1 - Anemia in chronic kidney disease Status: Acute (3) Hypo-osmolality and hyponatremia: Code(s): E87.1 - Hypo-osmolality and hyponatremia Status: Acute (4) Obstructive sleep apnea treated with BiPAP: Code(s): G47.33 - Obstructive sleep apnea (adult) (pediatric) Status: Acute (5) Acute on chronic combined systolic and diastolic CHF (congestive heart failure): Code(s): I50.43 - Acute on chronic combined systolic (congestive) and diastolic (congestive) heart failure Status: Acute (6) Gastroesophageal reflux disease: Code(s): K21.9 - Gastro-esophageal reflux disease without esophagitis Status: Acute (7) Benign prostatic hyperplasia: Qualifiers: Lower urinary tract symptom presence: unspecified whether lower urinary tract symptoms present Qualified Code(s): N40.0 - Benign prostatic hyperplasia without lower urinary tract symptoms Code(s): N40.0 - Benign prostatic hyperplasia without lower urinary tract symptoms Status: Acute Plan Acute on chronic renal failure Stage 4 Gentle IV hydration Metolazone discontinued monitor for fluid overload Baseline around 2.00 Cr. 5.7 POA nephrology consulted Holding LUISA and diuretic Avoid nephrotoxic drugs. S urine Osmo studies pending Monitor antihypertensive drug therapy. Avoid NSAIDs. Routine CMP monitoring GFR. Monitor electrolytes especially potassium. Appreciate entry level accounting clerk consultation, stop IV fluid, kidney function is not improving, but creatinine stable Hypo-osmolality with hyponatremia NA 120 POA->125 POA-> 129 Nephrology consulted Holding diuretics Sodium level is on the baseline, possible SIADH and usage of diuretic medication Acute on chronic combined diastolic and systolic heart failure History of TAVR/valvular disease cardiology may be consulted for medication adjustment recently changed medications causing worsening renal function Diuretics on hold previous echocardiogram results 2021 echocardiogram EF of 70% EKG Paced chest x-ray Bilateral basal atelectatic changes. Early pneumonia cannot be excluded. Clinical correlation advised. 2+ BLE edema Lipid panel, TSH, liver function test. Daily weight. fluid restriction Chronic anemia Hemoglobin is trending down No obvious bleeding Repeat CBC Hypokalemia Repeated with potassium chloride 40 mEq p.o. x1 and 20 mg IV x1 Repeat BMP HX MERCEDES: Resume BIpap at night HX BPH: Resume Proscar HX GERD: PPI HX HTN: Stable holding ramipril probably will need to discontinued at discharge Code status: Full code per patient DVT prophylaxis: scd Stress ulcer prophylaxis: Protonix 40 daily PT/OT notes: PT/OT Pending Plan to discharge him to [facility]. CC consulted to assist. Waiting for placement pt considers hospice care placement Subjective Date/time seen: 02/16/24 08:03 Interval history: I saw examined patient today, no new issue even over the night, patient denies shortness breath, dysuria, nausea vomiting black stools. Labs reviewed, hemoglobin is stable, hypokalemia corrected Exam Narrative: Physical Exam: GENERAL: Alert and oriented x 2. No acute distress. EYES: EOMI. No scleral icterus. PERRLA. HEENT: Moist mucous membranes. LUNGS: Diminished bilaterally lower lobes. Slight muscle accessory use CARDIOVASCULAR: Regular rate and rhythm. No murmur. No JVD. S1-S2 ABDOMEN: Soft, non tenderness and non-distended. No palpable masses. EXTREMITIES: 2+ BLE edema. Non-tender SKIN: No rash
[2024-02-16] MEDS: FERROUS SULFATE DRIED 142 MG TABCR PO ×2 (09:01→17:39)
[2024-02-16] MEDS: ASCORBIC ACID 500 MG TABLET PO (09:02)
[2024-02-16] MEDS: MULTIVITAMINS THERAPEUTIC TAB (*BKC) 1 TABLET PO (09:02)
[2024-02-16] MEDS: ASPIRIN 81 MG ENTERIC TABLET PO (09:02)
[2024-02-16] MEDS: TAMSULOSIN HCL 0.4 MG CAPSULE PO (09:02)
[2024-02-16] MEDS: FAMOTIDINE 20 MG TABLET PO ×2 (09:02→21:01)
[2024-02-16] MEDS: POTASSIUM CHLORIDE 20 MEQ PACKET (FOR LIQUID) 40 MEQ PO ×2 (09:03→17:39)
[2024-02-16] MEDS: SODIUM CHLORIDE 500 MG TABLET 1000 MG PO ×3 (09:03→17:39)
[2024-02-16] MEDS: CALCIUM ACETATE 667 MG TABLET PO (09:03)
[2024-02-16] MEDS: CHOLECALCIFEROL 1,000 UNITS TABLET 1000 UNITS PO (09:03)
[2024-02-16] MEDS: FINASTERIDE 5 MG TABLET PO (09:03)
[2024-02-16] MEDS: CALCIUM/VITAMIN D 500 MG/5 MCG (200 I.U.) TABLET PO (09:03)
[2024-02-16] MEDS: EPOETIN ALFA 20,000 UNITS/ML VIAL 10000 UNITS SUB-Q (09:04)
--- NOTE | 2024-02-16 09:33 | PM.PNNEP ---
Progress Note: A&P Assessment and Plan (1) ANDI (acute kidney injury): Code(s): N17.9 - Acute kidney failure, unspecified Status: Acute Assessment and Plan: the patient has acute kidney injury on top of chronic kidney disease.. His creatinine in November was 2.44 with a GFR of 25. In mid January his creatinine was up to 6.9 and then on admission was 5.7 then 5.4 and now 4.9. It is the same today. GFR is only 11. No major uremic symptoms. Has multiple issues and symptoms but has multiple problems that could be associated with these. Family does not want dialysis. Renal sono one cyst, no hydro, and normal size kidneys. Urine 'lytes and FeUrea are nonprerenal. CK normal UA is bland The patient is off the IV fluids. Swelling is slightly worse. He has some crackles. The creatinine is a little higher at 5.4. He is eating and drinking okay. Will continue the same approach. Mrs. Britt and I discussed at length. Do not think he is going to get better and in fact he may become progressively worse especially since he is becoming more fluid overloaded in spite of the higher creatinine. We are not going to do dialysis as tired by family and patient. So it might be reasonable to consider hospice at this point. I talked with the floor nurse who is going to consult hospice and notify case management. Mrs. Britt says that she has talked to the facility to which place the patient is going tomorrow and they have the capability of handling him at this activity level. I told her that the Case Management people will come in and help her with all of this. (2) Paroxysmal atrial fibrillation: Code(s): I48.0 - Paroxysmal atrial fibrillation Status: Acute Assessment and Plan: Heart rate is running 68-100 (3) Coronary artery disease: Code(s): I25.10 - Atherosclerotic heart disease of [place] coronary artery without angina pectoris Status: Acute Assessment and Plan: Not having any chest pain. (4) Essential hypertension: Code(s): I10 - Essential (primary) hypertension Status: Acute Assessment and Plan: Blood pressure is under good control (5) Anemia in CKD (chronic kidney disease): Code(s): N18.9 - Chronic kidney disease, unspecified; D63.1 - Anemia in chronic kidney disease Status: Acute Assessment and Plan: hemoglobin is 8. he received EPO today. Will not give this long-term because he would have to go to a foot doctor office and he is going to be on hospice. (6) Obstructive sleep apnea treated with BiPAP: Code(s): G47.33 - Obstructive sleep apnea (adult) (pediatric) Status: Acute Assessment and Plan: He uses a BiPAP machine at home (7) Secondary renal hyperparathyroidism: Code(s): N25.81 - Secondary hyperparathyroidism of renal origin Status: Acute Assessment and Plan: P down to 4.4 On calcium binders. will stop these. (8) Acute hyponatremia: Code(s): E87.1 - Hypo-osmolality and hyponatremia Status: Acute Assessment and Plan: the sodium level is low. it has occasionally been low in the past. This is probably related to the congestive heart failure plus the torsemide. May drink a lot of water as well. diarrhea, PPI may have contributed as well. BI SOLUTIONS ARCHITECT disease does this as well but he has no symptoms of that right now other than his dementia. Consider CT of the brain if it does not get better soon cancer can do this but he has no active cancer disease. He says he recently had a colonoscopy. Hormonal issues can do this. cortisol is okay. TSH is low, Ft3 is low as well. Ft4 is normal. etiology? Pulmonary disease can do this. Chest x-ray does not show any space-occupying lesions. Sodium is stable on fluid restriction alone. Subjective Date/time seen: 02/16/24 09:33 Interval history: Patient feels okay. He has a cough No shortness of breath
[2024-02-16 14:00] VITALS: BP 112/64; PULSE 68; RESP 17; TEMP 36.6; O2SAT 97
[2024-02-16] MEDS: MELATONIN 3 MG TABLET PO (21:01)
[2024-02-16] MEDS: ATORVASTATIN 20 MG TABLET PO (21:02)
[2024-02-16 21:12] VITALS: BP 116/53; PULSE 68; RESP 20; TEMP 36.4; O2SAT 99
[2024-02-16 22:44] VITALS: PULSE 77; O2SAT 99
[2024-02-17 04:45] VITALS: BP 101/54; PULSE 74; RESP 20; TEMP 36.3; O2SAT 99
[2024-02-17 04:46] VITALS: BP 101/54; PULSE 74; RESP 20; TEMP 36.5; O2SAT 99
[2024-02-17 04:53] LABS: Hematocrit 25.1 % (42.0-52.0); Hemoglobin 8.2 g/dL (14.0-18.0); Mean Corpuscular HGB Conc 32.7 g/dl (32-36); Mean Corpuscular Hemoglobin 33.9 pg (26-34); Mean Corpuscular Volume 103.7 fl (80-100); Mean Platelet Volume 9.4 fl (7.4-10.4); Platelet Count Result 135 k/mm3 (150-375); Red Blood Count 2.42 M/mm3 (4.6-6.20); Red Cell Distribution Width 14.9 % (11.5-14.5); White Blood Count 7.1 K/mm3 (4.5-10.0)
[2024-02-17 05:08] LABS: Alanine Aminotransferase 32 U/L (6-50); Albumin Level 3.7 g/dL (3.5-5.1); Alkaline Phosphatase 97 U/L (38-126); Anion Gap 14 mmol/L (4-12); Aspartate Amino Transferase 27 U/L (17-59); Bilirubin,Total 0.8 mg/dL (0.2-1.3); Carbon Dioxide 22 mmol/L (22-30); Chloride 97 mmol/L (98-107); Estimated CRCL calculation 13 ml/min; Estimated Glomerular Filt Rate 11; Glucose 110 mg/dL (65-110); Potassium 4.2 mmol/L (3.4-5.0); Sodium 133 mmol/L (137-145)
[2024-02-17 05:53] LABS: Blood Urea Nitrogen 161 mg/dL (9-20)
--- NOTE | 2024-02-17 08:09 | PM.IMPN ---
Progress Note: A&P Assessment and Plan (1) Acute kidney injury superimposed on stage 4 chronic kidney disease: Code(s): N17.9 - Acute kidney failure, unspecified; N18.4 - Chronic kidney disease, stage 4 (severe) Status: Acute (2) Anemia in CKD (chronic kidney disease): Code(s): N18.9 - Chronic kidney disease, unspecified; D63.1 - Anemia in chronic kidney disease Status: Acute (3) Hypo-osmolality and hyponatremia: Code(s): E87.1 - Hypo-osmolality and hyponatremia Status: Acute (4) Obstructive sleep apnea treated with BiPAP: Code(s): G47.33 - Obstructive sleep apnea (adult) (pediatric) Status: Acute (5) Acute on chronic combined systolic and diastolic CHF (congestive heart failure): Code(s): I50.43 - Acute on chronic combined systolic (congestive) and diastolic (congestive) heart failure Status: Acute (6) Gastroesophageal reflux disease: Code(s): K21.9 - Gastro-esophageal reflux disease without esophagitis Status: Acute (7) Benign prostatic hyperplasia: Qualifiers: Lower urinary tract symptom presence: unspecified whether lower urinary tract symptoms present Qualified Code(s): N40.0 - Benign prostatic hyperplasia without lower urinary tract symptoms Code(s): N40.0 - Benign prostatic hyperplasia without lower urinary tract symptoms Status: Acute Plan Acute on chronic renal failure Patient has a history of CKD stage 4, and creatinine getting worse progressively Now patient is on end-stage renal disease. Was suspect due to dehydration, diuretic medication was stopped, patient received normal saline IV Patient kidney is not improving. Radiology Equipment Servicer consulted. Appreciate nutritionists consultation, nutritionists recommended to stop IV fluid to avoid fluid overload. Kidney function is not improving, but creatinine stable. Patient and family declined dialysis Hypo-osmolality with hyponatremia Holding diuretics Sodium level is on the baseline, possible SIADH and usage of diuretic medication Sodium level is trending up chronic combined diastolic and systolic heart failure Compensated. Chronic anemia Hemoglobin is trending down No obvious bleeding Hypokalemia Repeated with potassium chloride 40 mEq p.o. x1 and 20 mg IV x1 Repeat BMP Corrected HX MERCEDES: Resume BIpap at night HX BPH: Resume Proscar HX GERD: PPI HX HTN: Stable holding ramipril probably will need to discontinued at discharge Code status: Full code per patient DVT prophylaxis: scd Stress ulcer prophylaxis: Protonix 40 daily PT/OT notes: PT/OT Pending discharge him to [facility]. CC consulted to assist. pt requests hospice care placement. We consulted hospice care, hospice care will be arranged to assisted living facility Subjective Date/time seen: 02/17/24 08:09 Interval history: I saw examined patient today, no new issue even over the night, patient denies shortness breath, dysuria, nausea vomiting black stools. Labs reviewed, hemoglobin is stable, hypokalemia corrected Exam Narrative: Physical Exam: GENERAL: Alert and oriented x 2. No acute distress. EYES: EOMI. No scleral icterus. PERRLA. HEENT: Moist mucous membranes. LUNGS: Diminished bilaterally lower lobes. Slight muscle accessory use CARDIOVASCULAR: Regular rate and rhythm. No murmur. No JVD. S1-S2 ABDOMEN: Soft, non tenderness and non-distended. No palpable masses. EXTREMITIES: 2+ BLE edema. Non-tender SKIN: No rashes or lesions. Skin warm, dry. NEUROLOGIC: No focal neurological deficits. CN II-XII grossly intact PSYCHIATRIC: Appropriate mood and affect. Good judgement and insight. No visual or auditory hallucinations. No suicidal or homicidal ideation. Objective Data Vital Signs Vital Signs: Vital Signs - 24 hr 02/16/24 09:00 02/16/24 14:00 02/16/24 20:00 Temperature 97.8 F Pulse Rate 68 Respirator
--- NOTE | 2024-02-17 08:10 | PM.DS ---
DS: Admitting Diagnosis Discharge Date 02/17/24 Admitting Diagnosis (1) Acute kidney injury superimposed on stage 4 chronic kidney disease: Code(s): N17.9 - Acute kidney failure, unspecified; N18.4 - Chronic kidney disease, stage 4 (severe) Status: Acute (2) Anemia in CKD (chronic kidney disease): Code(s): N18.9 - Chronic kidney disease, unspecified; D63.1 - Anemia in chronic kidney disease Status: Acute (3) Hypo-osmolality and hyponatremia: Code(s): E87.1 - Hypo-osmolality and hyponatremia Status: Acute (4) Obstructive sleep apnea treated with BiPAP: Code(s): G47.33 - Obstructive sleep apnea (adult) (pediatric) Status: Acute (5) Acute on chronic combined systolic and diastolic CHF (congestive heart failure): Code(s): I50.43 - Acute on chronic combined systolic (congestive) and diastolic (congestive) heart failure Status: Acute (6) Gastroesophageal reflux disease: Code(s): K21.9 - Gastro-esophageal reflux disease without esophagitis Status: Acute (7) Benign prostatic hyperplasia: Qualifiers: Lower urinary tract symptom presence: unspecified whether lower urinary tract symptoms present Qualified Code(s): N40.0 - Benign prostatic hyperplasia without lower urinary tract symptoms Code(s): N40.0 - Benign prostatic hyperplasia without lower urinary tract symptoms Status: Acute DS: Discharge Diagnosis Discharge Diagnosis (1) Acute kidney injury superimposed on stage 4 chronic kidney disease: Code(s): N17.9 - Acute kidney failure, unspecified; N18.4 - Chronic kidney disease, stage 4 (severe) Status: Acute (2) Anemia in CKD (chronic kidney disease): Code(s): N18.9 - Chronic kidney disease, unspecified; D63.1 - Anemia in chronic kidney disease Status: Acute (3) Hypo-osmolality and hyponatremia: Code(s): E87.1 - Hypo-osmolality and hyponatremia Status: Acute (4) Obstructive sleep apnea treated with BiPAP: Code(s): G47.33 - Obstructive sleep apnea (adult) (pediatric) Status: Acute (5) Acute on chronic combined systolic and diastolic CHF (congestive heart failure): Code(s): I50.43 - Acute on chronic combined systolic (congestive) and diastolic (congestive) heart failure Status: Acute (6) Gastroesophageal reflux disease: Code(s): K21.9 - Gastro-esophageal reflux disease without esophagitis Status: Acute (7) Benign prostatic hyperplasia: Qualifiers: Lower urinary tract symptom presence: unspecified whether lower urinary tract symptoms present Qualified Code(s): N40.0 - Benign prostatic hyperplasia without lower urinary tract symptoms Code(s): N40.0 - Benign prostatic hyperplasia without lower urinary tract symptoms Status: Acute DS: Summary Hospital Course Hospital Course: 88-year-old with an extensive past medical history including but not limited to dementia, chronic kidney disease combined systolic and diastolic heart failure, pulmonary hypertension, TAVR, leadless pacemaker placement, BPH, iron deficiency anemia, rheumatoid arthritis and obstructive sleep apnea who presented to the ER after outpatient labs demonstrated acutely worsening renal function and acute on chronic anemia. The patient had outpatient labs ordered by Nephrology. Labs returned with acute hyponatremia, markedly elevated BUN and creatinine from baseline. The patient himself denies any symptoms but he is only alert oriented to person and place and is a poor historian. He states he does not know why he was brought to the ER. Per ER documentation patient has been having increasing lower extremity swelling and had some medications to his cardiac medications as outpatient. He had follow-up labs with worsening renal function. He had further medication adjustments and it was noted that his renal function was continuing to worsen. The patient was directed to come to the hosp
[2024-02-17 08:18] VITALS: BP 108/50; PULSE 75; O2SAT 97
[2024-02-17] MEDS: FINASTERIDE 5 MG TABLET PO (08:20)
[2024-02-17] MEDS: FAMOTIDINE 20 MG TABLET PO (08:20)
[2024-02-17] MEDS: CALCIUM/VITAMIN D 500 MG/5 MCG (200 I.U.) TABLET PO (08:20)
[2024-02-17] MEDS: ASPIRIN 81 MG ENTERIC TABLET PO (08:20)
[2024-02-17] MEDS: TAMSULOSIN HCL 0.4 MG CAPSULE PO (08:20)
[2024-02-17] MEDS: MULTIVITAMINS THERAPEUTIC TAB (*BKC) 1 TABLET PO (08:20)
[2024-02-17] MEDS: FERROUS SULFATE DRIED 142 MG TABCR PO (08:20)
[2024-02-17] MEDS: CHOLECALCIFEROL 1,000 UNITS TABLET 1000 UNITS PO (08:20)
[2024-02-17] MEDS: SODIUM CHLORIDE 500 MG TABLET 1000 MG PO ×2 (08:21→13:50)
[2024-02-17] MEDS: POTASSIUM CHLORIDE 20 MEQ PACKET (FOR LIQUID) 40 MEQ PO (08:21)
[2024-02-17] MEDS: ASCORBIC ACID 500 MG TABLET PO (08:21)
[2024-02-17] MEDS: BUMETANIDE 1 MG TABLET 2 MG PO (08:21)
--- NOTE | 2024-02-17 11:01 | PM.PNNEP ---
Progress Note: A&P Assessment and Plan (1) ANDI (acute kidney injury): Code(s): N17.9 - Acute kidney failure, unspecified Status: Acute Assessment and Plan: the patient has acute kidney injury on top of chronic kidney disease.. His creatinine in November was 2.44 with a GFR of 25. In mid January his creatinine was up to 6.9 and then on admission was 5.7 then 5.4 and now 4.9. It is the same today. GFR is only 11. No major uremic symptoms. Has multiple issues and symptoms but has multiple problems that could be associated with these. Family does not want dialysis. Renal sono one cyst, no hydro, and normal size kidneys. Urine 'lytes and FeUrea are nonprerenal. CK normal UA is bland creat inine improved to 5.1 will continue to observe while here. pt is soon to be discharged and will go on hospice at the facility. (2) Paroxysmal atrial fibrillation: Code(s): I48.0 - Paroxysmal atrial fibrillation Status: Acute Assessment and Plan: Heart rate is running 68-100 (3) Coronary artery disease: Code(s): I25.10 - Atherosclerotic heart disease of [place] coronary artery without angina pectoris Status: Acute Assessment and Plan: Not having any chest pain. (4) Essential hypertension: Code(s): I10 - Essential (primary) hypertension Status: Acute Assessment and Plan: Blood pressure is under good control (5) Anemia in CKD (chronic kidney disease): Code(s): N18.9 - Chronic kidney disease, unspecified; D63.1 - Anemia in chronic kidney disease Status: Acute Assessment and Plan: hemoglobin is 8.2 he received EPO saturday. (6) Obstructive sleep apnea treated with BiPAP: Code(s): G47.33 - Obstructive sleep apnea (adult) (pediatric) Status: Acute Assessment and Plan: He uses a BiPAP machine at home (7) Secondary renal hyperparathyroidism: Code(s): N25.81 - Secondary hyperparathyroidism of renal origin Status: Acute Assessment and Plan: P down to 4.4 On calcium binders. will stop these. (8) Acute hyponatremia: Code(s): E87.1 - Hypo-osmolality and hyponatremia Status: Acute Assessment and Plan: the sodium level is low. it has occasionally been low in the past. This is probably related to the congestive heart failure plus the torsemide. May drink a lot of water as well. diarrhea, PPI may have contributed as well. 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 Consider CT of the brain if it does not get better soon cancer can do this but he has no active cancer disease. He says he recently had a colonoscopy. Hormonal issues can do this. cortisol is okay. TSH is low, Ft3 is low as well. Ft4 is normal. etiology? Pulmonary disease can do this. Chest x-ray does not show any space-occupying lesions. Sodium is stable and very mildly low at 133 on fluid restriction alone. Subjective Date/time seen: 02/17/24 11:01 Interval history: patient is feeling the same. cough better. still has some edema. eager for discharge. Exam Narrative: WDWN male in NAD skin no rash or subQ nodules head ncat lungs clearer today cor reg no rub or gallop abd BS+ nontender and soft ext 2+ unchanged bilateral edema. Objective Data Vital Signs Vital Signs: Vital Signs - 24 hr 02/16/24 14:00 02/16/24 20:00 02/16/24 21:12 Temperature 97.8 F 97.6 F Pulse Rate 68 68 Respiratory Rate 17 20 Blood Pressure 112/64 116/53 L Pulse Oximetry 97 99 Oxygen Delivery Room Air 02/16/24 22:44 02/17/24 04:46 02/17/24 04:45 Temperature 97.7 F 97.4 F L Pulse Rate 77 74 74 Respiratory Rate 20 20 Blood Pressure 101/54 L 101/54 L Pulse Oximetry 99 99 99 Oxygen Delivery CPAP 02/17/24 08:18 02/17/24 08:20 Temperature Pulse Rate 75 Respiratory Rate Blood Pressure 108/50 L Pulse Oximetry 97 Oxyge
[2024-02-17 14:00] VITALS: BP 108/52; PULSE 71; RESP 18; TEMP 36.7; O2SAT 100
[2024-02-17 18:23] LABS: Immunofixation, Serum Normal pattern.
== END 2024-02-17 17:10 | disposition hospice, home (50) | DRG 683 ==
LOC: ANHED 18:21 → ANH2MED 18:42
PROVIDERS: Internal Medicine; Internal Medicine Nephrology; Nurse Practitioner Family; Admitting Provider General Practice; Emergency Provider Emergency Medicine; PCP Family Medicine; Visit Provider Hospitalist
DX: N17.9 Acute kidney failure, unspecified (principal); E87.1 Hypo-osmolality and hyponatremia; I50.42 Chronic combined systolic (congestive) and diastolic (congestive) heart failure; N18.6 End stage renal disease; D63.1 Anemia in chronic kidney disease; G47.33 Obstructive sleep apnea (adult) (pediatric); K21.9 Gastro-esophageal reflux disease without esophagitis; N40.0 Benign prostatic hyperplasia without lower urinary tract symptoms; E87.6 Hypokalemia; E11.22 Type 2 diabetes mellitus with diabetic chronic kidney disease; I25.10 Atherosclerotic heart disease of native coronary artery without angina pectoris; E78.2 Mixed hyperlipidemia; F03.90 Unspecified dementia, unspecified severity, without behavioral disturbance, psychotic disturbance, mood disturbance, and anxiety; M06.9 Rheumatoid arthritis, unspecified; M19.90 Unspecified osteoarthritis, unspecified site; I48.0 Paroxysmal atrial fibrillation; Z96.653 Presence of artificial knee joint, bilateral; N25.81 Secondary hyperparathyroidism of renal origin; E86.0 Dehydration; Z96.643 Presence of artificial hip joint, bilateral; Z85.828 Personal history of other malignant neoplasm of skin; Z90.49 Acquired absence of other specified parts of digestive tract; Z87.891 Personal history of nicotine dependence
CPT/HCPCS: 36415; 71045; 76775; 80048; 80053; 80069; 81003; 81050; 82274; 82533; 82550; 82570; 83883; 83930; 83935; 84100; 84155; 84156; 84165; 84295; 84300; 84439; 84443; 84480; 84540; 85025; 85027; 85055; 85652; 85999; 86038; 86039; 86160; 86162; 86334; 93005; 96360; 96361; 97110; 97116; 97161; 97165; 97530; 97535; 99285; A9270; C8929; G0378; J3480; J7030; Q4081; Q5105; Q9957

== ENCOUNTER 2024-02-27 09:11 | Emergency (ER) | payer MEDICARE, SELFPAY ==
[2024-02-27 09:13] VITALS: BP 159/98; PULSE 90; RESP 16; TEMP 36.6; O2SAT 96
[2024-02-27 09:19] VITALS: PULSE 88; RESP 15
--- NOTE | 2024-02-27 09:40 | PC.NURSE ---
RECEIVED CALL FROM [facility] NURSE FOR MR LAMA. SHE STATES THAT [facility] IS UNABLE TO CARE FOR HIM ANY LONGER DUE TO HIS ACUITY INCREASING AND INCREASINGLY AGITATED BEHAVIOR. SHE STATES THAT THE CUSTOMER CARE AGENT IS ATTEMPTING TO FIND A DIFFERENT FACILITY TO SEND PT. DR BHAKTA AWARE AND ASKED ME TO CALL MERLY OUR CUSTOMER CARE AGENT TO BECOME INVOLVED IN THE PROCESS. MERLY NOTIFIED AND WILL CALL [place] [facility] TO OBTAIN ADDITIONAL INFORMATION.
--- NOTE | 2024-02-27 09:45 | ED.FALL ---
HPI - Fall General Chief Complaint: Fall Stated Complaint: b/l LE swelling Time Seen by Provider: 02/27/24 09:23 History of Present Illness HPI Narrative: 88-year-old male presents the emergency department for evaluation after having a fall from his wheelchair. Patient reported he slipped from the wheelchair. Care facility was also concerned about his chronic leg swelling. Since his last visit in emergency department patient is now on hospice. Family states they want comfort care at this time and they do not want any aggressive treatment. I discussed doing the head CT and they states that they would not want surgery and they were comfortable with not doing a head CT since they would not act on the findings. [place] feels that they are not able to take care of him and that he needs a usp facility rather than a memory care unit. Hospice and care coordination are working on this as outpatient. Related Data Home Medications Medication Instructions Recorded Confirmed multivitamin 1 tablet PO DAILY 07/03/19 02/09/24 cholecalciferol (vitamin D3) 25 1,000 unit PO DAILY 08/12/19 02/09/24 mcg (1,000 unit) capsule ascorbic acid (vitamin C) 500 mg 500 mg PO DAILY 07/12/20 02/09/24 tablet aspirin 81 mg tablet,delayed 81 mg PO DAILY 11/02/20 02/09/24 release (Adult Low Dose Aspirin) ferrous sulfate 142 mg (45 mg 45 mg PO BID 02/21/22 02/09/24 iron) tablet,extended release (Slow Fe) potassium chloride 20 mEq oral 20 meq PO DAILY 10/30/22 02/09/24 packet (Klor-Con) tamsulosin 0.4 mg capsule 0.4 mg PO DAILY 11/14/23 02/09/24 atorvastatin 20 mg tablet 20 mg PO DAILY 02/09/24 02/09/24 finasteride 5 mg tablet 5 mg PO DAILY 02/09/24 02/09/24 Allergies Allergy/AdvReac Type Severity Reaction Status Date / Time clopidogrel [From Plavix] Allergy Itching Verified 02/09/24 16:46 Review of Systems Review of Systems: ROS unobtainable: Yes unobtainable due to medical condition PMFSH Past Medical History Medical History (Updated 02/27/24 @ 18:43 by Waqar Qureshi MD) Abdominal aortic aneurysm Anemia in CKD (chronic kidney disease) Benign prostatic hyperplasia Chronic anemia Chronic kidney disease, stage IV (severe) Baseline creatinine around 2.2 Congestive heart failure Combined systolic and diastolic heart failure with echo cardiograms from 2021 demonstrating a combination EF of 40% April 2022 and grade 3 diastolic dysfunction on TTE February 2022, [id number] mitral valve regurgitation, moderate tricuspid valve regurgitation, bioprosthetic aortic valve with good function, moderate pulmonary hypertension Coronary artery disease With history of stents in 2007. Negative Lexiscan stress in 06/2016. 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 History of basal cell cancer Excised from right ear, chin, and left ear. Hyperlipemia Hypertension Iliac aneurysm Iron deficiency anemia Mixed hyperlipidemia Moderate pulmonary hypertension Obesity (BMI 30-39.9) Obstructive sleep apnea treated with BiPAP With follow-up with pulmonology November 2023 continuing BiPAP Paroxysmal atrial fibrillation History of cardioversion and cardiac ablation. Status post Watchman 06/2022. 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 Type 2 diabetes mellitus with kidney complication, without long-term current use of insulin Vitamin D deficiency Surgical History Surgical History History of arthroplasty of left knee (2013) History of arthroplasty of right knee (2006) History of basal cell carcinoma excision MOHS History of cardiac radiofr
[2024-02-27 10:21] VITALS: BP 148/110; PULSE 83; RESP 18; O2SAT 98
[2024-02-27] MEDS: HYDROcodone/acetaminophen (*CRX) 10-325 MG TABLET 1 TAB PO (10:38)
[2024-02-27] MEDS: LORazepam INJ (*CRX) 2 MG/ML VIAL 0.5 MG IV PUSH ×2 (11:18→12:38)
[2024-02-27] MEDS: MORPHINE SULFATE (*CRX) 2 MG/ML INJ IV PUSH ×2 (11:18→12:36)
[2024-02-27 12:42] VITALS: BP 88/77; PULSE 86; RESP 15
--- NOTE | 2024-02-27 16:44 | PCCCNOTE ---
1000: CC got called to the ED to help assist this pt with placement. Pt currently lived at [facility] assisted living on hospice, but has gotten to be more than assisted living could handle physically. Pt needs more nursing care. I spoke with Tati from [facility], who is currently trying to find a bed for him in a SNF. I also spoke with Angy and Juanita from [facility], with whom he is currently with. Together we were trying to find the best placement for the pt. I went to speak with the patients (Matt)and her sister at bedside. Pt was yelling in pain and very anxious. I spoke with the MD regarding IV pain medication to help with this. Pt responded better to this and was able to relax more. I spoke with Angy from Hospice and she came to evaluate him for GIP admission. After pt received several doses of IV Morphine and Ativan, pt was accepted as GIP admission and moved to the floor.
== END 2024-02-27 17:55 | disposition hospice, inpatient (51) ==
PROVIDERS: Emergency Provider Emergency Medicine; PCP Family Medicine
DX: R22.43 Localized swelling, mass and lump, lower limb, bilateral (principal); Z51.5 Encounter for palliative care; F03.90 Unspecified dementia, unspecified severity, without behavioral disturbance, psychotic disturbance, mood disturbance, and anxiety; I13.0 Hypertensive heart and chronic kidney disease with heart failure and stage 1 through stage 4 chronic kidney disease, or unspecified chronic kidney disease; E11.22 Type 2 diabetes mellitus with diabetic chronic kidney disease; N18.4 Chronic kidney disease, stage 4 (severe); I50.40 Unspecified combined systolic (congestive) and diastolic (congestive) heart failure; D63.1 Anemia in chronic kidney disease; I25.10 Atherosclerotic heart disease of native coronary artery without angina pectoris; I48.0 Paroxysmal atrial fibrillation; I27.20 Pulmonary hypertension, unspecified; E78.2 Mixed hyperlipidemia; E55.9 Vitamin D deficiency, unspecified; E03.8 Other specified hypothyroidism; N25.81 Secondary hyperparathyroidism of renal origin; N40.0 Benign prostatic hyperplasia without lower urinary tract symptoms; G47.33 Obstructive sleep apnea (adult) (pediatric); M06.09 Rheumatoid arthritis without rheumatoid factor, multiple sites; K21.9 Gastro-esophageal reflux disease without esophagitis; Z96.653 Presence of artificial knee joint, bilateral; Z95.0 Presence of cardiac pacemaker; Z96.643 Presence of artificial hip joint, bilateral; Z95.2 Presence of prosthetic heart valve; Z95.5 Presence of coronary angioplasty implant and graft; Z85.828 Personal history of other malignant neoplasm of skin; Z87.891 Personal history of nicotine dependence; Z98.42 Cataract extraction status, left eye; Z98.41 Cataract extraction status, right eye; Z90.49 Acquired absence of other specified parts of digestive tract; Z79.82 Long term (current) use of aspirin; Z79.899 Other long term (current) drug therapy; W05.0XXA Fall from non-moving wheelchair, initial encounter
CPT/HCPCS: 96374; 96375; 96376; 99285; A9270; J2060; J2270

== ENCOUNTER 2024-02-27 14:33 | HOS | payer OTHER, MEDICARE, SELFPAY ==
[2024-02-27 14:45] VITALS: BP 87/43; PULSE 71; RESP 18; TEMP 36; O2SAT 96
[2024-02-27] MEDS: MORPHINE SULFATE INJ (*CRX) 50 MG in SODIUM CHLORIDE 0.9% IV 95 ML IV CONT (16:17)
--- NOTE | 2024-02-27 18:10 | PM.IMHP ---
H&P: HPI History of Present Illness Date/Time: 02/27/24 18:10 Chief Complaint: Agitation Narrative: 88yo male with CKD, CHF dementia, DM and HTN who presents the ED for evaluation after having a fall from his wheelchair. Patient was recently hospitalized from 02/08-02/16 for acutely worsening renal function, hyponatremia and acute on chronic anemia. It was felt patient now has end-stage renal disease. Patient and family declined dialysis. Patient's requested hospice care placement. Hospice care was arranged at the memory care assisted living facility. Patient reported he slipped from the wheelchair. Care facility was also concerned about his chronic leg swelling. Per ED, the family states they want comfort care at this time and they do not want any aggressive treatment. Vital signs wee stable. [place] feels that they are not able to take care of him and that he needed a fpc facility rather than a memory care unit. Hospice and care coordination were consulted. Family declined any additional workup. Discussed personally with ED provider. Patient became agitated and he was treated with lorazepam and morphine and was admitted under hospice care. Spoke with family at bedside. They are relieved that the patine is now more comfortable. Review of Systems Review of Systems: ROS unobtainable: Yes unobtainable due to mental status PMFSH Past Medical History Medical History (Updated 02/27/24 @ 18:25 by Gino Daniels MD) Abdominal aortic aneurysm Anemia in CKD (chronic kidney disease) Benign prostatic hyperplasia Chronic anemia Chronic kidney disease, stage IV (severe) Baseline creatinine around 2.2 Congestive heart failure Combined systolic and diastolic heart failure with echo cardiograms from 2021 demonstrating a combination EF of 40% April 2022 and grade 3 diastolic dysfunction on TTE February 2022, [id number] mitral valve regurgitation, moderate tricuspid valve regurgitation, bioprosthetic aortic valve with good function, moderate pulmonary hypertension Coronary artery disease With history of stents in 2007. Negative Lexiscan stress in 06/2016. 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 History of basal cell cancer Excised from right ear, chin, and left ear. Hyperlipemia Hypertension Iliac aneurysm Iron deficiency anemia Mixed hyperlipidemia Moderate pulmonary hypertension Obesity (BMI 30-39.9) Obstructive sleep apnea treated with BiPAP With follow-up with pulmonology November 2023 continuing BiPAP Paroxysmal atrial fibrillation History of cardioversion and cardiac ablation. Status post Watchman 06/2022. 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 Type 2 diabetes mellitus with kidney complication, without long-term current use of insulin Vitamin D deficiency Surgical History Surgical History History of arthroplasty of left knee (2013) History of arthroplasty of right knee (2006) History of basal cell carcinoma excision MOHS History of cardiac radiofrequency ablation (~2015) History of cardioversion History of cataract extraction Left eye 2010 Right eye 2016 History of cholecystectomy (2005) History of cochlear implant (2017) Re-implant 2020 due to recall of original device History of hemorrhoidectomy (1981) History of inguinal hernia repair (1976) History of lumbosacral spine surgery (2013) Radiofrequency nerve ablation. History of permanent cardiac pacemaker placement (2018) leadless History of repair of anterior cruciate ligament of right knee (1957) History of right hip replacement (2009) W
[2024-02-27 20:00] VITALS: O2SAT 98
[2024-02-27 21:01] VITALS: BMI 36.1
[2024-02-27 21:03] VITALS: BP 121/45; PULSE 69; RESP 10; TEMP 36.5; O2SAT 96
[2024-02-28] MEDS: LORazepam INJ (*CRX) 2 MG/ML VIAL 1 MG IV PUSH (02:06)
[2024-02-28] MEDS: ATROPINE SULFATE 1% OPHTH SOLN 5 ML BOTTLE 2 DROP SUBLINGUAL (02:07)
[2024-02-28 04:28] VITALS: BP 115/53; PULSE 70; RESP 12; TEMP 36.6; O2SAT 92
--- NOTE | 2024-02-28 06:43 | PC.NURSE ---
0637 PT WITHOUT PULSE OR RESPIRATIONS, KWAME Nur CHARGE NURSE NOTIFIED
--- NOTE | 2024-02-28 06:44 | PC.NURSE ---
ALICIA NOTIFIED, HOSPICE NOTIFIED
--- NOTE | 2024-02-28 09:17 | PC.NURSE ---
Rosario From [facility] called, patient is not a candidate for donation. Patient may be released to the Home.
--- NOTE | 2024-02-28 10:31 | PC.NURSE ---
Nigel Trinh was called at 0940, they came and transferred the patient from the floor. Security present with home distribution sales representative on the floor.
--- NOTE | 2024-03-04 06:57 | P.DN_ITS ---
Discharge Summary Date and Time Date of : 02/28/24 Time of : 06:37 Provider Pronounced By: 2 RNs Name of First RN That Pronounced: KWAME NGO RN Name of Second RN That Pronounced: ENIO BOOKER RN Probable Cause of Probable Cause of : End-Stage Renal disease Summary Hospital Course: Patient with ESRD and family declined dialysis. Patient's requested hospice care placement. Hospice care was arranged at the [facility] care assisted living facility. Patient slipped from the wheelchair. Care facility was also concerned about his chronic leg swelling. Per ED, the family states they want comfort care at this time and they did not want any aggressive treatment. Vital signs were stable. Patient became agitated and he was treated with lorazepam and morphine and was admitted under hospice care for comfort measures and pain control. The patient was started on a Morphine drip. Comfort measures started. He was made comfortable. He on 02/28/24. Additional Data Confirmation of as documented by pronouncing clinician: Pupillary Reflex, Palpable Pulses, Response to Stimuli, Heart Tones and Breath Sounds Name of Provider Notified: dr. mireles Time Provider Notified: 07:05 Provider Requests Autopsy: No Family Requests Autopsy: No Customer Support Consultant Notified: Yes Date [facility] Notified of : 02/28/24 Time [facility] Notified of : 06:54
== END 2024-02-28 06:37 | disposition expired | DRG 951 ==
PROVIDERS: Admitting Provider Internal Medicine; PCP Family Medicine; Visit Provider Internal Medicine
DX: Z51.5 Encounter for palliative care (principal); N18.6 End stage renal disease; I13.2 Hypertensive heart and chronic kidney disease with heart failure and with stage 5 chronic kidney disease, or end stage renal disease; I50.42 Chronic combined systolic (congestive) and diastolic (congestive) heart failure; E11.22 Type 2 diabetes mellitus with diabetic chronic kidney disease; W05.0XXA Fall from non-moving wheelchair, initial encounter; I25.10 Atherosclerotic heart disease of native coronary artery without angina pectoris; I71.40 Abdominal aortic aneurysm, without rupture, unspecified; F01.50 Vascular dementia, unspecified severity, without behavioral disturbance, psychotic disturbance, mood disturbance, and anxiety; K21.9 Gastro-esophageal reflux disease without esophagitis; E78.2 Mixed hyperlipidemia; G47.33 Obstructive sleep apnea (adult) (pediatric); I48.0 Paroxysmal atrial fibrillation; M06.9 Rheumatoid arthritis, unspecified; N40.0 Benign prostatic hyperplasia without lower urinary tract symptoms; E03.8 Other specified hypothyroidism; M48.00 Spinal stenosis, site unspecified; E66.9 Obesity, unspecified; Z68.36 Body mass index [BMI] 36.0-36.9, adult; Z85.828 Personal history of other malignant neoplasm of skin; Z95.5 Presence of coronary angioplasty implant and graft; Z96.653 Presence of artificial knee joint, bilateral; Z98.42 Cataract extraction status, left eye; Z98.41 Cataract extraction status, right eye; Z90.49 Acquired absence of other specified parts of digestive tract; Z95.0 Presence of cardiac pacemaker; Z96.643 Presence of artificial hip joint, bilateral; Z95.2 Presence of prosthetic heart valve; Z66 Do not resuscitate; Z87.891 Personal history of nicotine dependence; Z79.82 Long term (current) use of aspirin
CPT/HCPCS: 96374; 96375; 96376; 99285; A9270; J2060; J2270